=== PATIENT | female | born 1960 | race Caucasian/White ===

== ENCOUNTER → 2016-12-11 | Outpatient (REF) | payer BC ==
[2016-12-11 12:15] LABS: ALBUMIN 3.8 GM/DL (3.2-5.2); ALBUMIN/GLOBULIN RATIO 1.12 (1.00-1.93); ALKALINE PHOSPHATASE 96 U/L (45-117); ALT/SGPT 30 U/L (12-78); ANION GAP 9 MEQ/L (8-16); AST/SGOT 17 U/L (15-37); BILIRUBIN,TOTAL 0.5 MG/DL (0.2-1.0); BLOOD UREA NITROGEN 13 MG/DL (7-18); CALCIUM LEVEL 9.4 MG/DL (8.5-10.1); CARBON DIOXIDE LEVEL 29 MEQ/L (21-32); CHLORIDE LEVEL 105 MEQ/L (98-107); CREATININE FOR GFR 0.87 MG/DL (0.55-1.02); GLOMERULAR FILTRATION RATE > 60.0 (>51); GLUCOSE, FASTING 131 MG/DL (70-105); POTASSIUM SERUM 4.5 MEQ/L (3.5-5.1); SODIUM LEVEL 143 MEQ/L (136-145); TOTAL PROTEIN 7.2 GM/DL (6.4-8.2)
== END ==
LOC: M SFHCPLAZ 09:58
PROVIDERS: ATTEND Nurse Practitioner Family
DX: E11.9 Type 2 diabetes mellitus without complications (principal)

== ENCOUNTER → 2017-04-16 | Outpatient (REF) | payer BC ==
[2017-04-16 13:40] LABS: ANION GAP 6 MEQ/L (8-16); BLOOD UREA NITROGEN 17 MG/DL (7-18); CALCIUM LEVEL 9.2 MG/DL (8.5-10.1); CARBON DIOXIDE LEVEL 27 MEQ/L (21-32); CHLORIDE LEVEL 107 MEQ/L (98-107); CREATININE FOR GFR 0.78 MG/DL (0.55-1.02); GLOMERULAR FILTRATION RATE > 60.0 (>51); GLUCOSE, FASTING 110 MG/DL (70-105); POTASSIUM SERUM 4.4 MEQ/L (3.5-5.1); SODIUM LEVEL 140 MEQ/L (136-145)
== END ==
LOC: M SFHCPLAZ 11:15
PROVIDERS: ATTEND Nurse Practitioner Family
DX: E78.5 Hyperlipidemia, unspecified (principal)

== ENCOUNTER → 2017-05-14 | Outpatient (CLI) | payer BC ==
--- NOTE | 2017-05-14 17:21 | REPMRS ---
Patient History The patient states she has not had a clinical breast exam in over a year. Patient is postmenopausal, has history of endometrial cancer at age 51, and is nulliparous. No known family history of cancer. Benign stereotactic core biopsy of the left breast, June 07, 2011. Digital Woman Screen Mammo: May 14, 2017 - Exam #: [id number] Bilateral CC and MLO view(s) were taken. Technologist: Anuradha Gamboa, Technologist Prior study comparison: April 06, 2016, digital woman screen mammo performed at [facility]. March 08, 2015, digital woman screen mammo performed at [facility]. FINDINGS: There are scattered fibroglandular densities. There has been no change in the appearance of the mammogram from the prior studies. There is a mild amount of residual fibroglandular tissue which is fairly symmetric. There is no interval development of dominant mass, architectural distortion, or clustered microcalcification suggestive of malignancy. ASSESSMENT: BI-RADS/ACR category 1 mammogram. Negative. Recommendation Routine screening mammogram in 1 year (for women over age 40). This mammogram was interpreted with the aid of an FDA-approved computer-aided dectection system. Electronically Signed By: Jered Almanzar MD 05/14/17 1432
== END ==
LOC: M WHC 12:41
PROVIDERS: ATTEND Nurse Practitioner Family
DX: Z12.31 Encounter for screening mammogram for malignant neoplasm of breast (principal); Z78.0 Asymptomatic menopausal state; Z85.9 Personal history of malignant neoplasm, unspecified

== ENCOUNTER → 2017-08-08 | Outpatient (REF) | payer BC ==
[2017-08-08 15:06] LABS: ALBUMIN 3.8 GM/DL (3.2-5.2); ALBUMIN/GLOBULIN RATIO 1.03 (1.00-1.93); ALKALINE PHOSPHATASE 113 U/L (45-117); ALT/SGPT 33 U/L (12-78); ANION GAP 10 MEQ/L (8-16); AST/SGOT 19 U/L (15-37); BILIRUBIN,TOTAL 0.3 MG/DL (0.2-1.0); BLOOD UREA NITROGEN 14 MG/DL (7-18); CALCIUM LEVEL 9.5 MG/DL (8.5-10.1); CARBON DIOXIDE LEVEL 26 MEQ/L (21-32); CHLORIDE LEVEL 104 MEQ/L (98-107); CHOLESTEROL LEVEL 171 MG/DL (<200); CREATININE FOR GFR 0.86 MG/DL (0.55-1.02); GLOMERULAR FILTRATION RATE > 60.0 (>51); GLUCOSE, FASTING 119 MG/DL (70-105); POTASSIUM SERUM 4.4 MEQ/L (3.5-5.1); SODIUM LEVEL 140 MEQ/L (136-145); TOTAL PROTEIN 7.5 GM/DL (6.4-8.2); TRIGLYCERIDES LEVEL 133 MG/DL (<150)
== END ==
LOC: M SFHCPLAZ 09:58
PROVIDERS: ATTEND Nurse Practitioner Family
DX: E11.9 Type 2 diabetes mellitus without complications (principal); E78.5 Hyperlipidemia, unspecified

== ENCOUNTER → 2017-12-12 | Outpatient (REF) | payer BC ==
[2017-12-12 12:47] LABS: ALBUMIN 3.7 GM/DL (3.2-5.2); ALBUMIN/GLOBULIN RATIO 1.03 (1.00-1.93); ALKALINE PHOSPHATASE 99 U/L (45-117); ALT/SGPT 29 U/L (12-78); ANION GAP 7 MEQ/L (8-16); AST/SGOT 15 U/L (7-37); BILIRUBIN,TOTAL 0.3 MG/DL (0.2-1.0); BLOOD UREA NITROGEN 15 MG/DL (7-18); CALCIUM LEVEL 9.5 MG/DL (8.5-10.1); CARBON DIOXIDE LEVEL 29 MEQ/L (21-32); CHLORIDE LEVEL 108 MEQ/L (98-107); CREATININE FOR GFR 0.72 MG/DL (0.55-1.02); GLOMERULAR FILTRATION RATE > 60.0 (>51); GLUCOSE, FASTING 132 MG/DL (70-105); POTASSIUM SERUM 4.2 MEQ/L (3.5-5.1); SODIUM LEVEL 144 MEQ/L (136-145); TOTAL PROTEIN 7.3 GM/DL (6.4-8.2)
[2017-12-12 14:55] LABS: ESTIMATED AVERAGE GLUCOSE 166 MG/DL (60-110); HEMOGLOBIN A1c 7.4 %
== END ==
LOC: M SFHCPLAZ 10:33
DX: E11.9 Type 2 diabetes mellitus without complications (principal)
CPT/HCPCS: 80053

== ENCOUNTER → 2018-02-07 | Outpatient (REF) | payer BC | LOC: M LAB REF 11:45 | DX: D18.00 Hemangioma unspecified site (principal) | CPT/HCPCS: 88305 ==

== ENCOUNTER → 2018-03-07 | Outpatient (REF) | payer BC ==
[2018-03-07 12:29] LABS: ALBUMIN 3.6 GM/DL (3.2-5.2); ALBUMIN/GLOBULIN RATIO 0.95 (1.00-1.93); ALKALINE PHOSPHATASE 108 U/L (45-117); ALT/SGPT 32 U/L (12-78); ANION GAP 8 MEQ/L (8-16); AST/SGOT 19 U/L (7-37); BILIRUBIN,TOTAL 0.4 MG/DL (0.2-1.0); BLOOD UREA NITROGEN 13 MG/DL (7-18); CALCIUM LEVEL 9.4 MG/DL (8.5-10.1); CARBON DIOXIDE LEVEL 26 MEQ/L (21-32); CHLORIDE LEVEL 106 MEQ/L (98-107); CREATININE FOR GFR 0.79 MG/DL (0.55-1.30); GLOMERULAR FILTRATION RATE > 60.0 (>51); GLUCOSE, FASTING 134 MG/DL (70-100); POTASSIUM SERUM 4.1 MEQ/L (3.5-5.1); SODIUM LEVEL 140 MEQ/L (136-145); TOTAL PROTEIN 7.4 GM/DL (6.4-8.2)
[2018-03-07 12:44] LABS: CREATININE, URINE 83.3 MG/DL; MALB URINE SIEMENS 7.4 MG/L; MAU/CREAT RATIO 8.8 MCG/MG (0.0-30.0)
[2018-03-07 12:48] LABS: ESTIMATED AVERAGE GLUCOSE 180 MG/DL (60-110); HEMOGLOBIN A1c 7.9 %
== END ==
LOC: M SFHCPLAZ 09:44
DX: E11.9 Type 2 diabetes mellitus without complications (principal)

== ENCOUNTER → 2018-06-19 | Outpatient (REF) | payer BC ==
[2018-06-19 16:06] LABS: ESTIMATED AVERAGE GLUCOSE 180 MG/DL (60-110); HEMOGLOBIN A1c 7.9 %
[2018-06-19 16:19] LABS: ALBUMIN 3.8 GM/DL (3.2-5.2); ALBUMIN/GLOBULIN RATIO 1.03 (1.00-1.93); ALKALINE PHOSPHATASE 108 U/L (45-117); ALT/SGPT 29 U/L (12-78); ANION GAP 8 MEQ/L (8-16); AST/SGOT 13 U/L (7-37); BILIRUBIN,TOTAL 0.4 MG/DL (0.2-1.0); BLOOD UREA NITROGEN 14 MG/DL (7-18); CALCIUM LEVEL 9.4 MG/DL (8.5-10.1); CARBON DIOXIDE LEVEL 27 MEQ/L (21-32); CHLORIDE LEVEL 108 MEQ/L (98-107); CREATININE FOR GFR 0.84 MG/DL (0.55-1.30); GLOMERULAR FILTRATION RATE > 60.0 (>51); GLUCOSE, FASTING 93 MG/DL (70-100); POTASSIUM SERUM 4.4 MEQ/L (3.5-5.1); SODIUM LEVEL 143 MEQ/L (136-145); TOTAL PROTEIN 7.5 GM/DL (6.4-8.2)
== END ==
LOC: M SFHCPLAZ 14:20
DX: E11.9 Type 2 diabetes mellitus without complications (principal); E78.5 Hyperlipidemia, unspecified

== ENCOUNTER → 2018-07-04 | Outpatient (CLI) | payer BC | LOC: M WHC 11:45 | DX: Z12.31 Encounter for screening mammogram for malignant neoplasm of breast (principal) | CPT/HCPCS: 77067 ==

== ENCOUNTER → 2018-08-15 | Outpatient (REF) | payer BC | LOC: M SFHCPLAZ 15:05 | DX: E11.9 Type 2 diabetes mellitus without complications (principal); E78.5 Hyperlipidemia, unspecified; I10 Essential (primary) hypertension ==

== ENCOUNTER → 2018-10-02 | Outpatient (REF) | payer BC ==
[2018-10-02 12:30] LABS: ALBUMIN 3.5 GM/DL (3.2-5.2); ALBUMIN/GLOBULIN RATIO 0.95 (1.00-1.93); ALKALINE PHOSPHATASE 110 U/L (45-117); ALT/SGPT 45 U/L (12-78); ANION GAP 10 MEQ/L (8-16); AST/SGOT 22 U/L (7-37); BILIRUBIN,TOTAL 0.3 MG/DL (0.2-1.0); BLOOD UREA NITROGEN 11 MG/DL (7-18); CARBON DIOXIDE LEVEL 24 MEQ/L (21-32); CHLORIDE LEVEL 108 MEQ/L (98-107); CHOLESTEROL LEVEL 170 MG/DL (<200); CREATININE FOR GFR 0.87 MG/DL (0.55-1.30); FREE T4 1.15 NG/DL (0.76-1.46); GLOMERULAR FILTRATION RATE > 60.0 (>45); GLUCOSE, FASTING 143 MG/DL (70-100); HDL CHOLESTEROL 50 MG/DL (>40); LDL CHOLESTEROL 96 MG/DL (<100); NON-HDL-C 120 MG/DL; POTASSIUM SERUM 4.5 MEQ/L (3.5-5.1); SODIUM LEVEL 142 MEQ/L (136-145); TOTAL PROTEIN 7.2 GM/DL (6.4-8.2); TRIGLYCERIDES LEVEL 121 MG/DL (<150)
[2018-10-02 12:48] LABS: ESTIMATED AVERAGE GLUCOSE 174 MG/DL (60-110); HEMOGLOBIN A1c 7.7 %
== END ==
LOC: M SFHCPLAZ 10:04
DX: E11.9 Type 2 diabetes mellitus without complications (principal)
CPT/HCPCS: 84443

== ENCOUNTER 2018-11-27 15:22 | Inpatient (IN) | payer BC ==
[~2018-11-27] VITALS: Ht 172.7 cm; Wt 121.5 kg
[2018-11-27] MEDS ORDERED: OMEP40CA2 PO (15:43)
[2018-11-27] MEDS ORDERED: SIMV10TA2 PO (15:43)
[2018-11-27] MEDS ORDERED: GLIP10TA18 PO (15:43)
[2018-11-27] MEDS ORDERED: LISI-538 PO (15:43)
[2018-11-27] MEDS ORDERED: METF10004 PO (15:43)
[2018-11-27] MEDS ORDERED: JARD1TAB3 PO (15:43)
[2018-11-27] MEDS ORDERED: JANU100T PO (15:43)
[2018-11-27] MEDS ORDERED: TRUL0.5I SQ (15:43)
[2018-11-27] MEDS ORDERED: CEFU50TA PO (15:43)
[2018-11-27] MEDS ORDERED: IPRATROPIUM 0.5MG/ALBUTEROL 2.5MG INH SOL UD 3ML (DUONEB)(J7620) NEB ONE (15:45)
[2018-11-27 16:01] LABS: BASO % 0.3 % (0.0-1.0); EOS % 0.7 % (0.0-3.0); HEMATOCRIT 39.2 % (36.0-47.0); HEMOGLOBIN 11.8 g/dl (12.0-15.5); LYMPH # 0.5 10^3/uL (1.5-4.5); LYMPH % 8.5 % (24.0-44.0); MEAN CORPUSCULAR HEMOGLOBIN 23.6 pg (27.0-33.0); MEAN CORPUSCULAR HGB CONC 30.1 g/dl (32.0-36.5); MEAN CORPUSCULAR VOLUME 78.6 fl (80.0-96.0); MONO # 0.4 10^3/uL (0.0-0.8); MONO % 6.2 % (0.0-5.0); NEUTROPHILS % 82.2 % (36.0-66.0); PLATELET COUNT, AUTOMATED 357 10^3/uL (150-450); RED BLOOD COUNT 4.99 10^6/uL (4.00-5.40); WHITE BLOOD COUNT 6.1 10^3/uL (4.0-10.0)
[2018-11-27 16:15] LABS: ABG BASE EXCESS 3.6 (-2.0-2.0); ABG HCO3 27.8 MEQ/L (22.0-26.0); ABG O2 SATURATION 95.1 % (95.0-99.0); ABG PARTIAL PRESSURE CO2 40.4 mmHg (35.0-45.0); ABG PARTIAL PRESSURE O2 76.9 mmHg (75.0-100.0); ABG STANDARD HCO3 27.6 MEQ/L (22.0-26.0); ABG pH (ARTERIAL) 7.455 UNITS (7.350-7.450)
--- NOTE | 2018-11-27 16:20 | REP ---
Portable chest x-ray: Sitting AP view: History: Dyspnea and cough. Comparison study: September 19, 2012. Findings: The patient is rotated somewhat to the left for the current exposure. EKG monitoring electrodes overlie the chest. There are appears to be blunting of the lateral pleural angles on both sides. The heart is slightly prominent. Findings may reflect small bilateral pleural effusions. No definite infiltrate. Impression: Possible small bilateral effusions. Prominent heart. The patient is rotated somewhat to the left. No definite infiltrate. Electronically Signed by Venkat Art MD 11/27/2018 06:20 P
[2018-11-27 16:24] LABS: INR 1.15; PROTHROMBIN TIME 14.9 SECONDS (12.1-14.4)
[2018-11-27 16:34] LABS: ALBUMIN 2.7 GM/DL (3.2-5.2); ALT/SGPT 86 U/L (12-78); BILIRUBIN,DIRECT < 0.1 MG/DL (0.0-0.2); BILIRUBIN,TOTAL 0.4 MG/DL (0.2-1.0); BLOOD UREA NITROGEN 14 MG/DL (7-18); CALCIUM LEVEL 8.9 MG/DL (8.8-10.2); CARBON DIOXIDE LEVEL 24 MEQ/L (21-32); CHLORIDE LEVEL 105 MEQ/L (98-107); CPK CREATINE PHOSPHOKINASE 467 U/L (26-192); CREATININE FOR GFR 0.78 MG/DL (0.55-1.30); GLOMERULAR FILTRATION RATE > 60.0 (>45); GLUCOSE, FASTING 164 MG/DL (70-100); MB/CK RELATIVE INDEX 0.56 (< OR =4); NT-PRO BNP 415 PG/ML (<125); POTASSIUM SERUM 4.7 MEQ/L (3.5-5.1); SODIUM LEVEL 139 MEQ/L (136-145); THYROID STIMULATING HORMONE 0.506 uIU/ML (0.358-3.740); TOTAL PROTEIN 7.3 GM/DL (6.4-8.2); TROPONIN I < 0.02 NG/ML (< 0.10)
[2018-11-27] MEDS ORDERED: ISOVUE-370 76% 100ML VIAL (Q9967) As Ordered ONE (16:46)
[2018-11-27] MEDS ORDERED: ASPI81TA85 PO (16:54)
[2018-11-27] MEDS ORDERED: WAL-100S PO (16:54)
[2018-11-27] MEDS ORDERED: VENTAER INH (16:54)
[2018-11-27] MEDS ORDERED: VITMTA PO (16:54)
[2018-11-27] MEDS ORDERED: MOXIFLOXACIN HCL 400 MG in APPROPRIATE DILUENT 1 EA IV ONE (17:15)
--- NOTE | 2018-11-27 17:45 | REP ---
CT pulmonary angiogram: With IV contrast. History: Dyspnea and cough. Shortness of breath. Comparison studies: Comparison is made with today's chest x-ray. Contrast dose: 75 cc's of Isovue [address] technique: Helical scanning is acquired and overlapping 1.5 mm and contiguous 3 mm axial images are reformatted. In addition, maximum intensity projection and multiplanar re-formation images are generated in sagittal and coronal imaging projections. CT pulmonary angiographic findings: There is good opacification of the pulmonary arterial tree. Axial and maximum intensity projection images show no evidence of vessel cutoff or filling defect to suggest pulmonary embolism. Thoracic aorta shows no evidence of aneurysm or dissection. There is coarse linear plate-like atelectasis in the left lower lobe. In addition, there is complete essentially lobar pattern consolidation in the right lower lobe. There is a little area of sparing laterally. Air bronchograms are seen. There is mild reactive mediastinal lymphadenopathy. A precarinal lymph node measures 14 mm. There is minimal pleural fluid posteriorly above the level of the infiltrate. No adrenal lesion is seen. The visualized upper abdominal structures are unremarkable. No bony destructive lesion is seen. Impression: 1. Extensive, essentially lobar pattern, consolidation in the right lower lobe consistent with pneumonia. There is patchy discoid atelectasis in the left lower lobe .2. No CT evidence of pulmonary embolus. 3. Minimal pleural fluid above the infiltrate on the right. 4. Mild reactive mediastinal lymphadenopathy. Electronically Signed by Venkat Art MD 11/27/2018 06:26 P
[2018-11-27] MEDS ORDERED: ALBUTEROL 90 MCG/ACT 8GM HFA INHALER INH PRN (19:45)
--- NOTE | 2018-11-27 20:42 | HPE ---
DATE OF ADMISSION: 11/27/2018 This is a 58-year-old female with a past medical history of hypertension, diabetes, hyperlipidemia who presents to the emergency room with cough productive yellow sputum which has been going on for the past week and a half. She did go to urgent care about 4 days ago and received Ceftin and she took it as prescribed but her status did not improve so she came to the emergency room for evaluation. In the emergency room she was found to hypoxic on room air with a pulse ox of 73. In the emergency room she was started on 50% venturi mask and now she is sating 93%. She was also given moxifloxacin by the ER attending. CT angio shows extensive essential lobar pattern with consolidation of the right lower lobe which is consistent with pneumonia. Patient is a lifetime nonsmoker and has no history of pulmonary disease. She will be admitted for further management. PAST MEDICAL HISTORY: Hypertension, diabetes, hyperlipidemia. ALLERGIES: She has no known drug allergies. FAMILY HISTORY: Not contributory. SOCIAL HISTORY: Patient does not smoke or drink alcohol or use drugs. MEDICATIONS AT HOME: Ventolin 2 puffs inhaler every 4 hours as needed, aspirin 81 mg orally daily, Ceftin 500 mg orally twice daily, Jardiance 25 mg orally daily, glipizide 10 mg orally daily, lisinopril 20 mg orally daily, metformin 1000 mg orally twice daily, Multivitamin 1 tablet orally daily, omeprazole 40 mg orally daily, simvastatin 10 mg orally at bedtime, Trulicity 1.5 mg subcu once a week and wal tussin 1 dose by mouth as needed. REVIEW OF SYSTEMS: Negative for all 10 major systems except what was mentioned in the HPI. VITALS: Blood pressure 121/59, heart rate 79 and regular, respiratory rate 18, temperature 99.9, Oxygen saturation 93% on 50% venti mask. Head is atraumatic normocephalic. Neck suppler with no JVD. Lungs have scattered rhonchi. S1, S2 audible. No murmurs appreciated. Abdomen was soft and positive bowel sounds. There is no pedal edema. Skin was intact. Neurologic examination, patient awake and oriented times three. LABS: WBC 6.1, hemoglobin 11.8, hematocrit 39.2, platelets 375,000 sodium 139, potassium 4.7, chloride 105, CO2 24, BUN 14, creatinine 0.78, glucose 164, troponin is less than 0.02, BNP 415. IMPRESSION: 1. Acute hypoxemic respiratory failure. 2. Right lower lobe community acquired pneumonia. PLAN: Patient to be admitted to PCU. We will continue 50% venturi mask for now and we will try to titrate to maintain oxygen sats above 90. I started the patient on IV Rocephin and Zithromax and will continue her preadmission medications. We will send sputum culture.
[2018-11-27] MEDS ORDERED: cefTRIAXone SOD 1 GM in D5W MINI-BAG PLUS 50 ML IV SCH (21:00)
[2018-11-27] MEDS: SIMVASTATIN 10 MG TAB PO SCH (21:33)
[2018-11-27] MEDS: AZITHROMYCIN INJ 500 MG, VIAL MATE ADAPTER 1 EACH in D5W 250 ML IV SCH (21:58)
[2018-11-28 05:58] LABS: BASO % 0.3 % (0.0-1.0); HEMATOCRIT 34.8 % (36.0-47.0); HEMOGLOBIN 10.3 g/dl (12.0-15.5); LYMPH # 0.4 10^3/uL (1.5-4.5); LYMPH % 6.5 % (24.0-44.0); MEAN CORPUSCULAR HGB CONC 29.6 g/dl (32.0-36.5); MEAN CORPUSCULAR VOLUME 77.9 fl (80.0-96.0); MONO # 0.4 10^3/uL (0.0-0.8); MONO % 6.2 % (0.0-5.0); NEUTROPHILS # 5.6 10^3/uL (1.8-7.7); NEUTROPHILS % 84.4 % (36.0-66.0); PLATELET COUNT, AUTOMATED 349 10^3/uL (150-450); RED BLOOD COUNT 4.47 10^6/uL (4.00-5.40); WHITE BLOOD COUNT 6.7 10^3/uL (4.0-10.0)
[2018-11-28 06:25] LABS: BLOOD UREA NITROGEN 20 MG/DL (7-18); CALCIUM LEVEL 8.9 MG/DL (8.8-10.2); CARBON DIOXIDE LEVEL 26 MEQ/L (21-32); CHLORIDE LEVEL 107 MEQ/L (98-107); CREATININE FOR GFR 0.72 MG/DL (0.55-1.30); GLOMERULAR FILTRATION RATE > 60.0 (>45); GLUCOSE, FASTING 151 MG/DL (70-100); POTASSIUM SERUM 4.1 MEQ/L (3.5-5.1); SODIUM LEVEL 143 MEQ/L (136-145)
[2018-11-28] MEDS ORDERED: glipiZIDE XL 5 MG TABCR PO SCH (07:30)
[2018-11-28] MEDS ORDERED: metFORMIN (GLUCOPHAGE) 1000 MG TABLET PO SCH (08:00)
[2018-11-28] MEDS: OMEPRAZOLE 20 MG CAP PO SCH (09:12)
[2018-11-28] MEDS: ASPIRIN 81 MG ENTERIC TAB PO SCH (09:12)
[2018-11-28] MEDS: MULTIVITAMINS/MINERALS THERAP 1 TAB PO SCH (09:12)
[2018-11-28] MEDS ORDERED: DEXTROSE 50% 50 ML SYRINGE IV PRN (10:30)
[2018-11-28] MEDS ORDERED: ALBUTEROL SULFATE 2.5 MG/0.5 ML INH NEB SOLN NEB PRN (10:30)
[2018-11-28] MEDS ORDERED: GLUCAGON FOR INJ 1 MG VIAL (J1610) SC PRN (10:30)
[2018-11-28] MEDS ORDERED: GLUCOSE 4 GM CHEW TABLET PO PRN (10:30)
[2018-11-28] MEDS: LISINOPRIL 20 MG TAB PO SCH (10:30)
--- NOTE | 2018-11-28 11:11 | ECGEPIP ---
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
[2018-11-28 11:33] LABS: PERCENT SATURATION 18.4 % (13.2-45.0)
[2018-11-28 11:54] LABS: FOLATE 22.6 NG/ML (>5.4)
[2018-11-28] MEDS: methylPREDNISolone INJ 40 MG/1 ML VIAL (J2920) IV SCH (11:56)
[2018-11-28] MEDS: ALBUTEROL SULFATE 2.5 MG/0.5 ML INH NEB SOLN NEB SCH ×3 (11:56→19:42)
[2018-11-28 13:12] VITALS: BP 156/76
[2018-11-28] MEDS: HumaLOG INSULIN (NovoLOG) PER UNIT SC SCH ×3 (13:30→20:35)
[2018-11-28 14:27] VITALS: O2SAT 92
--- NOTE | 2018-11-28 14:32 | IPNPDOC ---
Subjective Date Seen The patient was seen on 11/28/18. Subjective Chief Complaint/HPI Patient seen and examined at bedside. Is out of breath but still speaking complete sentences. Denies fevers, chills, chest pain. Admits to SOB, cough, and sputum production. States she doesn't feel too good. Has eaten breakfast this AM. Feels very fatigued. General: Reports: Normal Appetite Constitutional: Denies: Chills, Fever ENT: Denies: Head Aches Skin: Denies: Rash Pulmonary: Reports: Dyspnea, Cough Cardiovascular: Denies: Chest Pain Gastrointestinal: Denies: Nausea, Vomiting, Abdominal Pain, Diarrhea, Constipation Genitourinary: Denies: Dysuria, Frequency Hematologic: Denies: Bruising Endocrine: Denies: Heat Intolerance, Cold Intolerance Musculoskeletal: Denies: Joint Pain, Muscle Pain Neurological: Denies: Weakness, Confusion Psych: Reports: Mood Normal (for her condition) Objective Physical Examination General Exam: Positive: Alert, Cooperative, Moderate Distress Eye Exam: Positive: Conjunctiva & lids normal; Negative: Sclera icteric ENT Exam: Positive: Atraumatic Neck Exam: Positive: Supple; Negative: Lymphadenopathy Chest Exam: Positive: Rhonchi (scattered in all lung pepper), Diminished (at b ases), Other (Is tachypneic and in obvious respiratory distress); Negative: Clear to auscultation, Wheezing Heart Exam: Positive: Rate Normal, Regular Rhythm, Normal S1, Normal S2 Abdomen Exam: Positive: Normal bowel sounds, Soft, Other (morbidly obese); Negative: Tenderness, Hepatospenomegaly Extremity Exam: Negative: Clubbing, Cyanosis, Edema Skin Exam: Positive: Nl turgor and temperature; Negative: Rash Neuro Exam: Positive: Normal Speech Psych Exam: Positive: Mental status NL, Mood NL, Oriented x 3 Assessment /Plan Problems (1) Acute respiratory failure with hypoxia Status: Acute Problem Text: 11/28: Satting 92% on 15 L/min Venturi Mask and FiO2 50%. Lowest O2 saturation was 86% on 11/27. Overnight, patient did desat down to 87% on 11/28 early this AM. Patient has hypoxic respiratory failure likely secondary to Mycoplasma Pneumoniae Pneumonia as evidenced by Respiratory Panel results. Will continue current management and try to maintain O2 saturations above 90%. Have also ordered albuterol nebulizer treatments RQ6H and Q2H PRN. (2) Community acquired pneumonia due to Mycoplasma pneumoniae Status: Acute Problem Text: 11/28: Respiratory Panel was (+) for Mycoplasma Pneumoniae Pneu monia. Patient was originally started on ceftriaxone and azithromycin. Have d/ce'd the ceftriaxone and kept azithromycin for atypical organism coverage. Will continue to trend WBC and CBC. WBC astonishingly is WNL at 6.7 today. Continue O2 supplementation and nebulizer treatments. In addition, have added 40 mg IV solumedrol qdaily x 5 days. (3) Microcytic anemia Status: Acute Problem Text: 11/28: Has microcytic anemia on exams with Hgb 10.3 and MCV 77.9. RDW was high at 17.0 (H). Will order iron studies, vitamin B12, and folate to evaluate etiology of anemia. (4) Diabetes mellitus type 2 in obese Status: Chronic Problem Text: 11/28: Patient's last HgbA1C was 7.7 on 10/02/18. Patient was started on her home regimen of metformin 1000 mg BID and glipizide. However, due to patient's risk of going into renal failure during hospitalization with acute infection, will stop metformin for now. In addition, will hold glipizide for now. Will start sliding scale coverage with FS checks at and QHS. Will adjust therapy as necessary. (5) Grade I diastolic dysfunction Status: Chronic Problem Text: 11/28: According to [facility] records on outpatient EMR, patient had Echocardiogram on 08/2018 that showed normal LV internal dimensions and wall thickness, hyperdynamic LV systolic function LVEF 80%, mild dynamic LVOT obstructive gradient, Grade I LV diastolic dysfunction, mild L atrial dilitation, structurally and functioning normal aortic valve, no aortic stenosis, mild dilitation of the aortic root at the level of the sinuses Valsalva, normal diameter of the proximal ascending aorta, no coarctation of the aorta, moderately technically difficult echocardiogram. Will monitor patient clinically for any signs of heart failure. Her BNP was mildly elevated at 415 (H). Troponin I was <0.02. Total CK was 467 (H), CK-MB: 3 (N), CK-MB relative index was 0.56 (N). EKG done in the ED had shown: sinus rhythm, rate of 80, normal axis, QRS duration 90 ms, QTc interval 408 ms, subtle ST elevation infe riorly, lateral T wave inversion, consider ischemia, no priors for comparison. (6) Endometrial carcinoma Status: Chronic Problem Text: 11/28: Dx 2011, Stage 1B, grade 2, follows with Dr. Barrett in [place]. (7) GERD (gastroesophageal reflux disease) Status: Chronic Problem Text: 11/28: Continue omeprazole 40 mg daily. (8) Elevated liver enzymes Status: Acute Problem Text: 11/28: Of note, patient's AST was 62 (H), ALT was 86 (H), alk phos 189 (H). Liver enzymes were previously normal. Will continue to trend CMP and see if needs further evaluation. (9) Cervical spondylosis without myelopathy Status: Chronic Problem Text: 11/28: Monitor for now. No pain medication ordered. Consider K- pad if needed. LFTs were elevated on labs today. Thus, I do not wish to give her tylenol nor NSAIDs at this time. (10) Hyperlipidemia Status: Chronic Problem Text: 11/28: Continue aspirin 81 mg daily and simvastatin 10 mg QHS. Plan/VTE VTE Prophylaxis Ordered?: Yes (Lovenox 40 mg SC daily) Disposition Pending clinical improvement. VS, I&O, 24H, Fishbone Vital Signs/I&O Vital Signs Date Time Temp Pulse Resp B/P (MAP) Pulse Ox O2 Delivery O2 Flow Rate FiO2 11/28/18 11:30 73 123/55 (77) 91 11/28/18 09:30 22 Venturi Mask 15.0 11/28/18 06:46 50 11/27/18 17:22 99.9 I&O- Last 24 Hours up to 6 AM 11/28/18 06:00 Intake Total 50 ml Balance 50 ml Laboratory Data 24H LABS Laboratory Tests 2 11/27/18 15:47: Immature Granulocyte % (Auto) 2.1, White Blood Count 6.1, Red Blood Count 4.99, Hemoglobin 11.8L, Hematocrit 39.2, Mean Corpuscular Volume 78.6L, Mean Corpuscular Hemoglobin 23.6L, Mean Corpuscular Hemoglobin Concent 30.1L, Red Cell Distribution Width 17.2H, Platelet Count 357, Neutrophils (%) (Auto) 82.2H, Lymphocytes (%) (Auto) 8.5L, Monocytes (%) (Auto) 6.2H, Eosinophils (%) (Auto) 0.7, Basophils (%) (Auto) 0.3, Neutrophils # (Auto) 5.0, Lymphocytes # (Auto) 0.5L, Monocytes # (Auto) 0.4, Eosinophils # (Auto) 0.0, Basophils # (Auto) 0.0, Nucleated Red Blood Cells % (auto) 0.3H, Anion Gap 10, Glomerular Filtration Rate > 60.0, Lactic Acid Level 1.9, Calcium Level 8.9, Aspartate Amino Transf (AST/SGOT) 62H, Alanine Aminotransferase (ALT/SGPT) 86H, Alkaline Phosphatase 189H, Total Bilirubin 0.4, Direct Bilirubin < 0.1, Total Creatine Kinase 467H, Creatine Kinase MB 3.0, Creatine Kinase MB Relative Index 0.56, Troponin I < 0.02, GP-Suz-T-Type Natriuretic Peptide 415H, Total Protein 7.3, Albumin 2.7L, Albumin/Globulin Ratio 0.59L, Thyroid Stimulating Hormone (TSH) 0.506 11/27/18 15:59: Prothrombin Time 14.9H, Prothromb Time International Ratio 1.15 11/27/18 16:01: Blood Gas Bicarbonate Standard 27.6H, Arterial Blood pH 7.455H, Arterial Blood Partial Pressure CO2 40.4, Arterial Blood Partial Pressure O2 76.9, Arterial Blood Total CO2 29.0, Arterial Blood HCO3 27.8H, Arterial Blood Base Excess 3.6H, Arterial Blood Oxygen Saturation 95.1 11/28/18 03:49: Bedside Glucose (Misc Panel) 154H 11/28/18 05:39: Immature Granulocyte % (Auto) 2.6, White Blood Count 6.7, Red Blood Count 4.47, Hemoglobin 10.3L, Hematocrit 34.8L, Mean Corpuscular Volume 77.9L, Mean Corpuscular Hemoglobin 23.0L, Mean Corpuscular Hemoglobin Concent 29.6L, Red Cell Distribution Width 17.0H, Platelet Count 349, Neutrophils (%) (Auto) 84.4H, Lymphocytes (%) (Auto) 6.5L, Monocytes (%) (Auto) 6.2H, Eosinophils (%) (Auto) 0.0, Basophils (%) (Auto) 0.3, Neutrophils # (Auto) 5.6, Lymphocytes # (Auto) 0.4L, Monocytes # (Auto) 0.4, Eosinophils # (Auto) 0.0, Basophils # (Auto) 0.0, Nucleated Red Blood Cells % (auto) 0.0, Anion Gap 10, Glomerular Filtration Rate > 60.0, Blood Urea Nitrogen 20H, Creatinine 0.72, Sodium Level 143, Potassium Level 4.1, Chloride Level 107, Carbon Dioxide Level 26, Calcium Level 8.9 11/28/18 07:54: Bedside Glucose (Misc Panel) 135H 11/28/18 10:53: Reticulocyte # (auto) 59.9, Percent Reticulocyte Count 1.3, Reticulocyte Hemoglobin Equivalent 23.2L, Iron Level 45L, Total Iron Binding Capacity 244L, Transferrin % Saturation 18.4, Ferritin 105, Vitamin B12 Level 545, Folate 22.6 11/28/18 11:53: Bedside Glucose (Misc Panel) 169H CBC/BMP Laboratory Tests 11/27/18 15:47 Red Blood Count 4.99, Mean Corpuscular Volume 78.6 L, Mean Corpuscular Hemoglobin 23.6 L, Mean Corpuscular Hemoglobin Concent 30.1 L, Red Cell Distribution Width 17.2 H, Neutrophils (%) (Auto) 82.2 H, Lymphocytes (%) (Auto) 8.5 L, Monocytes (%) (Auto) 6.2 H, Eosinophils (%) (Auto) 0.7, Basophils (%) (Auto) 0.3, Neutrophils # (Auto) 5.0, Lymphocytes # (Auto) 0.5 L, Monocytes # (Auto) 0.4, Eosinophils # (Auto) 0.0, Basophils # (Auto) 0.0 11/28/18 05:39 Red Blood Count 4.47, Mean Corpuscular Volume 77.9 L, Mean Corpuscular Hemoglobin 23.0 L, Mean Corpuscular Hemoglobin Concent 29.6 L, Red Cell Distribution Width 17.0 H, Neutrophils (%) (Auto) 84.4 H, Lymphocytes (%) (Auto) 6.5 L, Monocytes (%) (Auto) 6.2 H, Eosinophils (%) (Auto) 0.0, Basophils (%) (Auto) 0.3, Neutrophils # (Auto) 5.6, Lymphocytes # (Auto) 0.4 L, Monocytes # (Auto) 0.4, Eosinophils # (Auto) 0.0, Basophils # (Auto) 0.0, Calcium Level 8.9 Microbiology Microbiology 11/27/18 Blood Culture, Received Pending 11/27/18 Blood Culture, Received Pending 11/27/18 Respiratory Virus Panel (PCR) ([facility]) - Final, Complete Mycoplasma Pneumoniae GME ATTESTATION GME ATTESTATION My faculty preceptor for this patient encounter was Dr. Chris Lozano, and was physically present during the encounter and was fully available. All aspects of the patient interview, examination, medical decision making process, and medical care plan development were reviewed and approved by the faculty preceptor. The faculty preceptor is aware and concurs with the plan as stated in the body of this note and will attest to such by his/her cosignature. ROYAL FRYE DO Nov 28, 2018 14:32
[2018-11-28] MEDS: ENOXAPARIN 40 MG/0.4 ML SYRINGE (J1650) SC SCH (18:52)
[2018-11-28] MEDS: SIMVASTATIN 10 MG TAB PO SCH (21:12)
[2018-11-28] MEDS: AZITHROMYCIN INJ 500 MG, VIAL MATE ADAPTER 1 EACH in D5W 250 ML IV SCH (21:13)
[2018-11-28 22:00] VITALS: BP 128/59
[2018-11-29] MEDS: ALBUTEROL SULFATE 2.5 MG/0.5 ML INH NEB SOLN NEB SCH ×4 (02:00→19:43)
[2018-11-29 05:58] LABS: BASO % 0.1 % (0.0-1.0); EOS % 0.1 % (0.0-3.0); HEMATOCRIT 33.2 % (36.0-47.0); LYMPH # 0.6 10^3/uL (1.5-4.5); MEAN CORPUSCULAR HEMOGLOBIN 23.2 pg (27.0-33.0); MEAN CORPUSCULAR HGB CONC 30.1 g/dl (32.0-36.5); MONO # 0.4 10^3/uL (0.0-0.8); MONO % 6.3 % (0.0-5.0); NEUTROPHILS # 5.8 10^3/uL (1.8-7.7); NEUTROPHILS % 82.9 % (36.0-66.0); PLATELET COUNT, AUTOMATED 391 10^3/uL (150-450); RED BLOOD COUNT 4.31 10^6/uL (4.00-5.40)
[2018-11-29 06:00] VITALS: BP 137/73
[2018-11-29 06:25] LABS: ALBUMIN 2.3 GM/DL (3.2-5.2); ALT/SGPT 66 U/L (12-78); BILIRUBIN,TOTAL 0.3 MG/DL (0.2-1.0); BLOOD UREA NITROGEN 24 MG/DL (7-18); CALCIUM LEVEL 9.1 MG/DL (8.8-10.2); CARBON DIOXIDE LEVEL 27 MEQ/L (21-32); CHLORIDE LEVEL 107 MEQ/L (98-107); CREATININE FOR GFR 0.68 MG/DL (0.55-1.30); GLOMERULAR FILTRATION RATE > 60.0 (>45); GLUCOSE, FASTING 175 MG/DL (70-100); SODIUM LEVEL 141 MEQ/L (136-145); TOTAL PROTEIN 6.9 GM/DL (6.4-8.2)
[2018-11-29] MEDS: methylPREDNISolone INJ 40 MG/1 ML VIAL (J2920) IV SCH (08:53)
[2018-11-29] MEDS: MULTIVITAMINS/MINERALS THERAP 1 TAB PO SCH (08:54)
[2018-11-29] MEDS: LISINOPRIL 20 MG TAB PO SCH (08:54)
[2018-11-29] MEDS: OMEPRAZOLE 20 MG CAP PO SCH (08:54)
[2018-11-29] MEDS: ASPIRIN 81 MG ENTERIC TAB PO SCH (08:54)
[2018-11-29] MEDS: HumaLOG INSULIN (NovoLOG) PER UNIT SC SCH ×4 (08:54→20:42)
--- NOTE | 2018-11-29 11:53 | IPNPDOC ---
Subjective Date Seen The patient was seen on 11/29/18. Subjective Chief Complaint/HPI Patient seen and examined at bedside. Denies fevers, chills, chest pain. Admits to cough productive of sputum and SOB same as prior. However, feels a little better than yesterday. Nurse stated that patient desatted down to 88% when walking, but not below that. General: Denies: Normal Appetite (admits to decreased appetite) Constitutional: Reports: Fatigue; Denies: Chills, Fever Eyes: Denies: Vision change ENT: Denies: Head Aches Skin: Denies: Rash Pulmonary: Reports: Dyspnea, Cough Cardiovascular: Denies: Chest Pain Gastrointestinal: Denies: Nausea, Vomiting, Abdominal Pain, Diarrhea, Constipation Genitourinary: Denies: Dysuria Hematologic: Denies: Bruising Endocrine: Denies: Heat Intolerance, Cold Intolerance Musculoskeletal: Denies: Joint Pain, Muscle Pain Neurological: Denies: Numbness, Confusion Psych: Reports: Mood Normal (for condition) Objective Physical Examination General Exam: Positive: Alert, Cooperative, Moderate Distress (with Venturi Mask on), Other (appears very fatigued) Eye Exam: Positive: Conjunctiva & lids normal; Negative: Sclera icteric ENT Exam: Positive: Atraumatic Neck Exam: Positive: Supple; Negative: Lymphadenopathy Chest Exam: Positive: Rhonchi (scattered in all lung pepper), Other (Is tachypneic and in obvious respiratory distress); Negative: Clear to auscultation, Wheezing Heart Exam: Positive: Rate Normal, Regular Rhythm, Normal S1, Normal S2 Abdomen Exam: Positive: Normal bowel sounds, Soft, Other (morbidly obese); Negative: Tenderness, Hepatospenomegaly Extremity Exam: Negative: Clubbing, Cyanosis, Edema Skin Exam: Positive: Nl turgor and temperature; Negative: Rash Neuro Exam: Positive: Normal Speech Psych Exam: Positive: Mental status NL, Mood NL, Oriented x 3 Assessment /Plan Problems (1) Acute respiratory failure with hypoxia Status: Acute Problem Text: 11/29: Satting 95% on 15 L/min Venturi Mask. Not on FiO2. Lowest O2 saturation on 11/28 was: 84% at 7:15 AM and 87% at 2200. Continue to maintain O2 saturations above 90% with O2 therapy. Continue albuterol neb tx. Continue to monitor pulse oximetry for any desaturation events. Treat underlying cause: Mycoplasma Pneumoniae Pneumonia with Azithromycin. 11/28: Satting 92% on 15 L/min Venturi Mask and FiO2 50%. Lowest O2 saturation was 86% on 11/27. Overnight, patient did desat down to 87% on 11/28 early this AM. Patient has hypoxic respiratory failure likely secondary to Mycoplasma Pneumoniae Pneumonia as evidenced by Respiratory Panel results. Will continue current management and try to maintain O2 saturations above 90%. Have also order ed albuterol nebulizer treatments RQ6H and Q2H PRN. (2) Community acquired pneumonia due to Mycoplasma pneumoniae Status: Acute Problem Text: 11/29: Day 2 of azithromycin. Continue IV solumedrol. WBC still WNL at 7 but is climbing up. However, patient is on steroid. Has remained afebrile overnight. 11/28: Respiratory Panel was (+) for Mycoplasma Pneumoniae Pneumonia. Patient was originally started on ceftriaxone and azithromycin. Have d/ce'd the ceftriaxone and kept azithromycin for atypical organism coverage. Will continue to trend WBC and CBC. WBC astonishingly is WNL at 6.7 today. Continue O2 supplementation and nebulizer treatments. In addition, have added 40 mg IV solumedrol qdaily x 5 days. (3) Microcytic anemia Status: Acute Problem Text: 11/29: Hgb was 10 (L), MCV was 77 (L), RDW was 17.2 (H), Retic # 59.9 WNL, Retic Hgb Equivalent 23.2(L), iron 45 (L), TIBC 244 (L), transferrin 202 WNL, transferrin % saturation 18.4 WNL, ferritin 105 WNL. Vitamin B12 545 WNL, and Folate 22.6 WNL. Anemia workup reveals etiology to be likely either: anemia of chronic disease and some additional iron deficiency anemia. If patient's ethnicity is Mediterranean origin, then thalassemia workup could be considered. 11/28: Has microcytic anemia on exams with Hgb 10.3 and MCV 77.9. RDW was high at 17.0 (H). Will order iron studies, vitamin B12, and folate to evaluate etiology of anemia. (4) Diabetes mellitus type 2 in obese Status: Chronic Problem Text: 11/29: Serum glucose was 175 (H) and FS was 238 (H). Patient required 10 units sliding scale coverage yesterday. Will start patient on basal insulin at half that dose: detemir 5 units today. Still on ISS coverage at and Q. 11/28: Patient's last HgbA1C was 7.7 on 10/02/18. Patient was started on her home regimen of metformin 1000 mg BID and glipizide. However, due to patient's risk of going into renal failure during hospitalization with acute infection, will stop metformin for now. In addition, will hold glipizide for now. Will start sliding scale coverage with FS checks at and Q. Will adjust therapy as necessary. (5) Grade I diastolic dysfunction Status: Chronic Problem Text: 11/28: According to [facility] records on outpatient EMR, patient had Echocardiogram on 08/2018 that showed normal LV internal dimensions and wall thickness, hyperdynamic LV systolic function LVEF 80%, mild dynamic LVOT obstructive gradient, Grade I LV diastolic dysfunction, mild L atrial dilitation, structurally and functioning normal aortic valve, no aortic stenosis, mild dilitation of the aortic root at the level of the sinuses Valsalva, normal diameter of the proximal ascending aorta, no coarctation of the aorta, moderately technically difficult echocardiogram. Will monitor patient clinically for any signs of heart failure. Her BNP was mildly elevated at 415 (H). Troponin I was <0.02. Total CK was 467 (H), CK-MB: 3 (N), CK-MB relative index was 0.56 (N). EKG done in the ED had shown: sinus rhythm, rate of 80, normal axis, QRS duration 90 ms, QTc interval 408 ms, subtle ST elevation inferiorly, lateral T wave inversion, consider ischemia, no priors for comp arison. (6) Endometrial carcinoma Status: Chronic Problem Text: 11/28: Dx 2011, Stage 1B, grade 2, follows with Dr. Barrett in [place]. (7) GERD (gastroesophageal reflux disease) Status: Chronic Problem Text: 11/28: Continue omeprazole 40 mg daily. (8) Elevated liver enzymes Status: Acute Problem Text: 11/29: Liver function tests and enzymes are normalizing and going down. AST was 29 WNL, ALT was 66 WNL, and alk phos has gone down to 151 (H) which was previously 189 (H). Will continue to monitor CMP. 11/28: Of note, patient's AST was 62 (H), ALT was 86 (H), alk phos 189 (H). Liver enzymes were previously normal. Will continue to trend CMP and see if needs further evaluation. (9) Cervical spondylosis without myelopathy Status: Chronic Problem Text: 11/28: Monitor for now. No pain medication ordered. Consider K- pad if needed. LFTs were elevated on labs today. Thus, I do not wish to give her tylenol nor NSAIDs at this time. (10) Hyperlipidemia Status: Chronic Problem Text: 11/28: Continue aspirin 81 mg daily and simvastatin 10 mg QHS. Plan/VTE VTE Prophylaxis Ordered?: Yes (Lovenox 40 mg SC daily) VS, I&O, 24H, Fishbone Vital Signs/I&O Vital Signs Date Time Temp Pulse Resp B/P (MAP) Pulse Ox O2 Delivery O2 Flow Rate FiO2 11/29/18 08:54 137/73 11/29/18 06:00 96.1 72 21 95 Venturi Mask 15.0 11/28/18 14:27 50 I&O- Last 24 Hours up to 6 AM 11/29/18 06:00 Intake Total 655 ml Output Total 300 ml Balance 355 ml Laboratory Data 24H LABS Laboratory Tests 2 11/28/18 11:53: Bedside Glucose (Misc Panel) 169H 11/28/18 16:37: Bedside Glucose (Misc Panel) 231H 11/28/18 20:35: Bedside Glucose (Misc Panel) 238H 11/29/18 05:32: Immature Granulocyte % (Auto) 2.6, White Blood Count 7.0, Red Blood Count 4.31, Hemoglobin 10.0L, Hematocrit 33.2L, Mean Corpuscular Volume 77.0L, Mean Corpuscular Hemoglobin 23.2L, Mean Corpuscular Hemoglobin Concent 30.1L, Red Cell Distribution Width 17.2H, Platelet Count 391, Neutrophils (%) (Auto) 82.9H, Lymphocytes (%) (Auto) 8.0L, Monocytes (%) (Auto) 6.3H, Eosinophils (%) (Auto) 0.1, Basophils (%) (Auto) 0.1, Neutrophils # (Auto) 5.8, Lymphocytes # (Auto) 0.6L, Monocytes # (Auto) 0.4, Eosinophils # (Auto) 0.0, Basophils # (Auto) 0.0, Nucleated Red Blood Cells % (auto) 0.0, Anion Gap 7L, Glomerular Filtration Rate > 60.0, Blood Urea Nitrogen 24H, Creatinine 0.68, Sodium Level 141, Potassium Level 4.0, Chloride Level 107, Carbon Dioxide Level 27, Calcium Level 9.1, Aspartate Amino Transf (AST/SGOT) 29, Alanine Aminotransferase (ALT/SGPT) 66, Alkaline Phosphatase 151H, Total Bilirubin 0.3, Total Protein 6.9, Albumin 2.3L, Albumin/Globulin Ratio 0.50L CBC/BMP Laboratory Tests 11/29/18 05:32 Red Blood Count 4.31, Mean Corpuscular Volume 77.0 L, Mean Corpuscular Hemoglobin 23.2 L, Mean Corpuscular Hemoglobin Concent 30.1 L, Red Cell Distribution Width 17.2 H, Neutrophils (%) (Auto) 82.9 H, Lymphocytes (%) (Auto) 8.0 L, Monocytes (%) (Auto) 6.3 H, Eosinophils (%) (Auto) 0.1, Basophils (%) (Auto) 0.1, Neutrophils # (Auto) 5.8, Lymphocytes # (Auto) 0.6 L, Monocytes # (Auto) 0.4, Eosinophils # (Auto) 0.0, Basophils # (Auto) 0.0, Calcium Level 9.1, Aspartate Amino Transf (AST/SGOT) 29, Alanine Aminotransferase (ALT/SGPT) 66, Alkaline Phosphatase 151 H, Total Bilirubin 0.3, Total Protein 6.9, Albumin 2.3 L Microbiology Microbiology 11/27/18 Blood Culture - Preliminary, Resulted No growth after 24 hours . All specim... 11/27/18 Blood Culture - Preliminary, Resulted No growth after 24 hours . All specim... 11/27/18 Respiratory Virus Panel (PCR) ([facility]) - Final, Complete Mycoplasma Pneumoniae GME ATTESTATION GME ATTESTATION My faculty preceptor for this patient encounter was Dr. Chris Lozano, and was physically present during the encounter and was fully available. All aspects of the patient interview, examination, medical decision making process, and medical care plan development were reviewed and approved by the faculty preceptor. The faculty preceptor is aware and concurs with the plan as stated in the body of this note and will attest to such by his/her cosignature. ROYAL FRYE DO Nov 29, 2018 11:53
[2018-11-29 14:00] VITALS: BP 146/68
[2018-11-29] MEDS: ENOXAPARIN 40 MG/0.4 ML SYRINGE (J1650) SC SCH (18:23)
[2018-11-29] MEDS: LEVEMIR (INSULIN DETEMIR) 1 UNITS/0.01ML SC SCH (20:42)
[2018-11-29] MEDS: SIMVASTATIN 10 MG TAB PO SCH (20:42)
[2018-11-29] MEDS: AZITHROMYCIN INJ 500 MG, VIAL MATE ADAPTER 1 EACH in D5W 250 ML IV SCH (21:06)
[2018-11-29 22:00] VITALS: BP 154/71
[2018-11-30] MEDS: ALBUTEROL SULFATE 2.5 MG/0.5 ML INH NEB SOLN NEB SCH ×4 (02:26→19:49)
[2018-11-30 05:59] LABS: HEMATOCRIT 34.2 % (36.0-47.0); HEMOGLOBIN 9.9 g/dl (12.0-15.5); MEAN CORPUSCULAR HEMOGLOBIN 22.7 pg (27.0-33.0); MEAN CORPUSCULAR HGB CONC 28.9 g/dl (32.0-36.5); MEAN CORPUSCULAR VOLUME 78.4 fl (80.0-96.0); PLATELET COUNT, AUTOMATED 390 10^3/uL (150-450); RED BLOOD COUNT 4.36 10^6/uL (4.00-5.40)
[2018-11-30 06:00] VITALS: BP 143/69
[2018-11-30 06:23] LABS: ALBUMIN 2.3 GM/DL (3.2-5.2); ALT/SGPT 61 U/L (12-78); BILIRUBIN,TOTAL 0.3 MG/DL (0.2-1.0); BLOOD UREA NITROGEN 22 MG/DL (7-18); CALCIUM LEVEL 8.9 MG/DL (8.8-10.2); CARBON DIOXIDE LEVEL 28 MEQ/L (21-32); CHLORIDE LEVEL 105 MEQ/L (98-107); CREATININE FOR GFR 0.63 MG/DL (0.55-1.30); GLOMERULAR FILTRATION RATE > 60.0 (>45); GLUCOSE, FASTING 203 MG/DL (70-100); POTASSIUM SERUM 4.1 MEQ/L (3.5-5.1); SODIUM LEVEL 138 MEQ/L (136-145); TOTAL PROTEIN 6.6 GM/DL (6.4-8.2)
[2018-11-30 06:39] LABS: ATYPICAL LYMPH 3 % (0-5); LYMPHOCYTES 11 % (16-52); MONOCYTES 1 % (0-8); MYELOCYTES 1 % (0-0); NEUTROPHILS 83 % (35-75)
[2018-11-30 06:41] LABS: ANISOCYTOSIS 1+; MICROCYTOSIS 1+; PLATELET ESTIMATE NORMAL (NORMAL); POIKILOCYTOSIS 1+
[2018-11-30] MEDS: OMEPRAZOLE 20 MG CAP PO SCH (08:13)
[2018-11-30] MEDS: MULTIVITAMINS/MINERALS THERAP 1 TAB PO SCH (08:13)
[2018-11-30] MEDS: ASPIRIN 81 MG ENTERIC TAB PO SCH (08:13)
[2018-11-30] MEDS: methylPREDNISolone INJ 40 MG/1 ML VIAL (J2920) IV SCH (08:13)
[2018-11-30] MEDS: HumaLOG INSULIN (NovoLOG) PER UNIT SC SCH ×4 (08:13→21:17)
[2018-11-30] MEDS: LISINOPRIL 20 MG TAB PO SCH (08:13)
[2018-11-30] MEDS ORDERED: POLYVINYL ALCOHOL OPHTH SOLN 15 ML(LIQUITEARS) OU PRN (10:15)
--- NOTE | 2018-11-30 11:28 | IPN ---
DATE: 11/30/2018 Ann is here with mycoplasma pneumonia. Starting to improve. She is breathing easier, walking easier in the room. Notices an improvement from yesterday. PHYSICAL EXAMINATION: Afebrile, 143/69, oxygen saturation 94%, still on 15 liter Venturi mask. GENERAL APPEARANCE: Less dyspneic. More talkative. HEENT: Unremarkable. LUNGS: Expiratory wheezes and rhonchi, but improved air movement from yesterday. HEART: Regular rate and rhythm. ABDOMEN: Soft, nontender. No peripheral edema. LABORATORIES: Complete blood count (CBC) shows some mild anemia. Electrolytes unremarkable. IMPRESSION: 1. Community-acquired pneumonia secondary to mycoplasma. Continue azithromycin, intravenous (IV) Solu-Medrol. 2. Anemia. Looks like anemia of chronic disease with some additional iron deficiency. 3. Diabetes. Blood sugars are under good control. She is on some basal insulin in addition to sliding scale. At home, she is on Jardiance, metformin and glipizide and Trulicity. She is on IV steroids because of the severe pneumonia. We recommend a five day course. She has received this and she is on her third day. Expect to resume her previous diabetic regimen upon discharge. Anticipated discharge date is probably 12/03/2018 or 12/04/2018.
[2018-11-30 14:00] VITALS: BP 137/70
[2018-11-30] MEDS: ENOXAPARIN 40 MG/0.4 ML SYRINGE (J1650) SC SCH (18:56)
[2018-11-30] MEDS: SIMVASTATIN 10 MG TAB PO SCH (21:15)
[2018-11-30] MEDS: LEVEMIR (INSULIN DETEMIR) 1 UNITS/0.01ML SC SCH (21:16)
[2018-11-30] MEDS: AZITHROMYCIN INJ 500 MG, VIAL MATE ADAPTER 1 EACH in D5W 250 ML IV SCH (21:18)
[2018-11-30 22:00] VITALS: BP 118/58
[2018-12-01] MEDS: ALBUTEROL SULFATE 2.5 MG/0.5 ML INH NEB SOLN NEB SCH ×2 (01:43→07:09)
[2018-12-01 05:49] LABS: BASO # 0.1 10^3/uL (0.0-0.2); BASO % 0.4 % (0.0-1.0); EOS # 0.2 10^3/uL (0.0-0.50); HEMATOCRIT 33.4 % (36.0-47.0); HEMOGLOBIN 10.4 g/dl (12.0-15.5); LYMPH # 1.8 10^3/uL (1.5-4.5); LYMPH % 11.4 % (24.0-44.0); MEAN CORPUSCULAR HEMOGLOBIN 30.2 pg (27.0-33.0); MEAN CORPUSCULAR HGB CONC 31.1 g/dl (32.0-36.5); MEAN CORPUSCULAR VOLUME 97.1 fl (80.0-96.0); MONO % 6.1 % (0.0-5.0); NEUTROPHILS # 12.1 10^3/uL (1.8-7.7); NEUTROPHILS % 76.4 % (36.0-66.0); PLATELET COUNT, AUTOMATED 338 10^3/uL (150-450); RED BLOOD COUNT 3.44 10^6/uL (4.00-5.40); WHITE BLOOD COUNT 15.9 10^3/uL (4.0-10.0)
[2018-12-01 06:00] VITALS: BP 150/66
[2018-12-01 06:12] LABS: ALBUMIN 2.3 GM/DL (3.2-5.2); ALT/SGPT 63 U/L (12-78); BILIRUBIN,TOTAL 0.4 MG/DL (0.2-1.0); BLOOD UREA NITROGEN 17 MG/DL (7-18); CARBON DIOXIDE LEVEL 28 MEQ/L (21-32); CHLORIDE LEVEL 105 MEQ/L (98-107); GLOMERULAR FILTRATION RATE > 60.0 (>45); GLUCOSE, FASTING 204 MG/DL (70-100); SODIUM LEVEL 137 MEQ/L (136-145); TOTAL PROTEIN 6.6 GM/DL (6.4-8.2)
[2018-12-01] MEDS: ASPIRIN 81 MG ENTERIC TAB PO SCH (08:13)
[2018-12-01] MEDS: OMEPRAZOLE 20 MG CAP PO SCH (08:13)
[2018-12-01] MEDS: MULTIVITAMINS/MINERALS THERAP 1 TAB PO SCH (08:13)
[2018-12-01] MEDS: methylPREDNISolone INJ 40 MG/1 ML VIAL (J2920) IV SCH (08:13)
[2018-12-01] MEDS: LISINOPRIL 20 MG TAB PO SCH (08:15)
[2018-12-01] MEDS: HumaLOG INSULIN (NovoLOG) PER UNIT SC SCH ×4 (08:17→21:12)
--- NOTE | 2018-12-01 08:57 | IPNPDOC ---
Subjective Date Seen The patient was seen on 12/01/18. Subjective Chief Complaint/HPI SOB Events since last encounter Poorly tolerated weaning off of Venti mask. + for mycoplasma in sputum. + JANSEN. afebrile. WBC elevated at 15,000 this am. Receiving albuterol nebs q 6H and prn. Constitutional: Denies: Chills, Fever, Night Sweats Pulmonary: Reports: Dyspnea, Cough Cardiovascular: Denies: Chest Pain, Palpitations, Orthopnea, Paroxysmal Noc. Dyspnea, Lt Headedness Gastrointestinal: Denies: Nausea, Vomiting, Abdominal Pain, Diarrhea, Constipation Genitourinary: Denies: Dysuria, Frequency, Incontinence, Retention Psych: Reports: Mood Normal; Denies: Depression, Memory Issues Objective Physical Examination General Exam: Positive: Alert, Cooperative, Mild Distress, Other (appears very fatigued) Eye Exam: Positive: Conjunctiva & lids normal; Negative: Sclera icteric ENT Exam: Positive: Atraumatic Neck Exam: Positive: Supple; Negative: Lymphadenopathy Chest Exam: Positive: Rales (bibasilar); Negative: Clear to auscultation, Rhonchi, Wheezing Heart Exam: Positive: Rate Normal, Regular Rhythm, Normal S1, Normal S2 Abdomen Exam: Positive: Normal bowel sounds, Soft, Other (morbidly obese); Negative: Tenderness, Hepatospenomegaly Extremity Exam: Negative: Clubbing, Cyanosis, Edema Skin Exam: Positive: Nl turgor and temperature; Negative: Rash Neuro Exam: Positive: Normal Speech Psych Exam: Positive: Mental status NL, Mood NL, Oriented x 3 Assessment /Plan Problems (1) Acute respiratory failure with hypoxia Status: Acute Problem Text: 11/30/18: poor tolerance to weaning off of Venti mask. Repeat CXR today. added on Ceftriaxone for abx coverage. Solumedrol 80 mg IV q 8 hrs. Duonebs q 6hrs. Continue to attempt weaning down on oxygen. 11/29: Satting 95% on 15 L/min Venturi Mask. Not on FiO2. Lowest O2 saturation on 11/28 was: 84% at 7:15 AM and 87% at 2200. Continue to maintain O2 saturations above 90% with O2 therapy. Continue albuterol neb tx. Continue to monitor pulse oximetry for any desaturation events. Treat underlying cause: Mycoplasma Pneumoniae Pneumonia with Azithromycin. 11/28: Satting 92% on 15 L/min Venturi Mask and FiO2 50%. Lowest O2 saturation was 86% on 11/27. Overnight, patient did desat down to 87% on 11/28 early this AM. Patient has hypoxic respiratory failure likely secondary to Mycoplasma Pneumoniae Pneumonia as evidenced by Respiratory Panel results. Will continue current management and try to maintain O2 saturations above 90%. Have also ordered albuterol nebulizer treatments RQ6H and Q2H PRN. (2) Community acquired pneumonia due to Mycoplasma pneumoniae Status: Acute Problem Text: 11/30/18: Day #3 Azithromycin. Added on Ceftriaxone due to elevated WBC. Can consider changing to quinolone due to poor progression and improvement. 11/29: Day 2 of azithromycin. Continue IV solumedrol. WBC still WNL at 7 but is climbing up. However, patient is on steroid. Has remained afebrile overnight. 11/28: Respiratory Panel was (+) for Mycoplasma Pneumoniae Pneumonia. Patient was originally started on ceftriaxone and azithromycin. Have d/ce'd the ceftriaxone and kept azithromycin for atypical organism coverage. Will continue to trend WBC and CBC. WBC astonishingly is WNL at 6.7 today. Continue O2 supplementation and nebulizer treatments. In addition, have added 40 mg IV solumedrol qdaily x 5 days. (3) Microcytic anemia Status: Acute Problem Text: 11/29: Hgb was 10 (L), MCV was 77 (L), RDW was 17.2 (H), Retic # 59.9 WNL, Retic Hgb Equivalent 23.2(L), iron 45 (L), TIBC 244 (L), transferrin 202 WNL, transferrin % saturation 18.4 WNL, ferritin 105 WNL. Vitamin B12 545 WNL, and Folate 22.6 WNL. Anemia workup reveals etiology to be likely either: anemia of chronic disease and some additional iron deficiency anemia. If patient's ethnicity is Mediterranean origin, then thalassemia workup could be considered. 11/28: Has microcytic anemia on exams with Hgb 10.3 and MCV 77.9. RDW was high at 17.0 (H). Will order iron studies, vitamin B12, and folate to evaluate etiology of anemia. (4) Diabetes mellitus type 2 in obese Status: Chronic Problem Text: 11/29: Serum glucose was 175 (H) and FS was 238 (H). Patient required 10 units sliding scale coverage yesterday. Will start patient on basal insulin at half that dose: detemir 5 units today. Still on ISS coverage at and QHS. 11/28: Patient's last HgbA1C was 7.7 on 10/02/18. Patient was started on her home regimen of metformin 1000 mg BID and glipizide. However, due to patient's risk of going into renal failure during hospitalization with acute infection, will stop metformin for now. In addition, will hold glipizide for now. Will start sliding scale coverage with FS checks at and QHS. Will adjust therapy as necessary. (5) Grade I diastolic dysfunction Status: Chronic Problem Text: 11/28: According to [facility] records on outpatient EMR, patient had Echocardiogram on 08/2018 that showed normal LV internal dimensions and wall thickness, hyperdynamic LV systolic function LVEF 80%, mild dynamic LVOT obstructive gradient, Grade I LV diastolic dysfunction, mild L atrial dilitation, structurally and functioning normal aortic valve, no aortic stenosis, mild dilitation of the aortic root at the level of the sinuses Martha elliott, normal diameter of the proximal ascending aorta, no coarctation of the aorta, moderately technically difficult echocardiogram. Will monitor patient clinically for any signs of heart failure. Her BNP was mildly elevated at 415 (H). Troponin I was <0.02. Total CK was 467 (H), CK-MB: 3 (N), CK-MB relative index was 0.56 (N). EKG done in the ED had shown: sinus rhythm, rate of 80, normal axis, QRS duration 90 ms, QTc interval 408 ms, subtle ST elevation inferiorly, lateral T wave inversion, consider ischemia, no priors for comparison. (6) Endometrial carcinoma Status: Chronic Problem Text: 11/28: Dx 2011, Stage 1B, grade 2, follows with Dr. Barrett in [place]. (7) GERD (gastroesophageal reflux disease) Status: Chronic Problem Text: 11/28: Continue omeprazole 40 mg daily. (8) Elevated liver enzymes Status: Acute Problem Text: 11/29: Liver function tests and enzymes are normalizing and going down. AST was 29 WNL, ALT was 66 WNL, and alk phos has gone down to 151 (H) which was previously 189 (H). Will continue to monitor CMP. 11/28: Of note, patient's AST was 62 (H), ALT was 86 (H), alk phos 189 (H). Liver enzymes were previously normal. Will continue to trend CMP and see if needs further evaluation. (9) Cervical spondylosis without myelopathy Status: Chronic Problem Text: 11/28: Monitor for now. No pain medication ordered. Consider K- pad if needed. LFTs were elevated on labs today. Thus, I do not wish to give her tylenol nor NSAIDs at this time. (10) Hyperlipidemia Status: Chronic Problem Text: 11/28: Continue aspirin 81 mg daily and simvastatin 10 mg QHS. Plan/VTE VTE Prophylaxis Ordered?: Yes (Lovenox 40 mg SC daily) VS, I&O, 24H, Fishbone Vital Signs/I&O Vital Signs Date Time Temp Pulse Resp B/P (MAP) Pulse Ox O2 Delivery O2 Flow Rate FiO2 12/01/18 08:15 131/65 12/01/18 06:00 97.0 61 22 93 Venturi Mask 15.0 11/28/18 14:27 50 I&O- Last 24 Hours up to 6 AM 12/01/18 06:00 Intake Total 2175 ml Output Total 350 ml Balance 1825 ml Laboratory Data 24H LABS Laboratory Tests 2 11/30/18 11:47: Bedside Glucose (Misc Panel) 255H 11/30/18 17:36: Bedside Glucose (Misc Panel) 268H 11/30/18 20:20: Bedside Glucose (Misc Panel) 319H 12/01/18 05:22: Immature Granulocyte % (Auto) 4.7H, White Blood Count 15.9H, Red Blood Count 3.44L, Hemoglobin 10.4L, Hematocrit 33.4L, Mean Corpuscular Volume 97.1H, Mean Corpuscular Hemoglobin 30.2, Mean Corpuscular Hemoglobin Concent 31.1L, Red Cell Distribution Width 13.4, Platelet Count 338, Neutrophils (%) (Auto) 76.4H, Lymphocytes (%) (Auto) 11.4L, Monocytes (%) (Auto) 6.1H, Eosinophils (%) (Auto) 1.0, Basophils (%) (Auto) 0.4, Neutrophils # (Auto) 12.1H, Lymphocytes # (Auto) 1.8, Monocytes # (Auto) 1.0H, Eosinophils # (Auto) 0.2, Basophils # (Auto) 0.1, Nucleated Red Blood Cells % (auto) 0.0, Anion Gap 4L, Glomerular Filtration Rate > 60.0, Blood Urea Nitrogen 17, Creatinine 0.60, Sodium Level 137, Potassium Level 4.0, Chloride Level 105, Carbon Dioxide Level 28, Calcium Level 9.0, Asp artate Amino Transf (AST/SGOT) 27, Alanine Aminotransferase (ALT/SGPT) 63, Alkaline Phosphatase 126H, Total Bilirubin 0.4, Total Protein 6.6, Albumin 2.3L, Albumin/Globulin Ratio 0.53L CBC/BMP Laboratory Tests 12/01/18 05:22 Red Blood Count 3.44 L, Mean Corpuscular Volume 97.1 H, Mean Corpuscular Hemoglobin 30.2, Mean Corpuscular Hemoglobin Concent 31.1 L, Red Cell Distribut ion Width 13.4, Neutrophils (%) (Auto) 76.4 H, Lymphocytes (%) (Auto) 11.4 L, Monocytes (%) (Auto) 6.1 H, Eosinophils (%) (Auto) 1.0, Basophils (%) (Auto) 0.4, Neutrophils # (Auto) 12.1 H, Lymphocytes # (Auto) 1.8, Monocytes # (Auto) 1.0 H, Eosinophils # (Auto) 0.2, Basophils # (Auto) 0.1, Calcium Level 9.0, Aspartate Amino Transf (AST/SGOT) 27, Alanine Aminotransferase (ALT/SGPT) 63, Alkaline Phosphatase 126 H, Total Bilirubin 0.4, Total Protein 6.6, Albumin 2.3 L Microbiology Microbiology 11/27/18 Blood Culture - Preliminary, Resulted No Growth after 72 hours. All specime... 11/27/18 Blood Culture - Preliminary, Resulted No Growth after 72 hours. All specime... 11/27/18 Respiratory Virus Panel (PCR) ([facility]) - Final, Complete Mycoplasma Pneumoniae Karen Orr [employer]URAL WORKER Dec 01, 2018 08:57
[2018-12-01] MEDS ORDERED: methylPREDNISolone INJ 40 MG/1 ML VIAL (J2920) IV ONE (09:30)
--- NOTE | 2018-12-01 10:52 | REP ---
Clinical: Pneumonia. Hypoxia. Technique: PA and lateral. Comparison: 11/27/2018. Findings: [id number] right lower lobe consolidation along with left basilar atelectasis and small bilateral pleural reactions are again identified and appear relatively similar to recent chest CT dated 11/27/2018. No pneumothorax. Cardiac silhouette appears normal. Skeletal structures intact. Impression: Right lower lobe consolidation along with bibasilar atelectasis (left greater than right) and small bilateral pleural reactions similar to recent chest CT. Electronically Signed by Marvin Ochoa MD 12/01/2018 10:44 A
[2018-12-01] MEDS: cefTRIAXone SOD 2 GM in D5W MINI-BAG PLUS 50 ML IV SCH (11:04)
[2018-12-01] MEDS ORDERED: FUROSEMIDE 40 MG/4 ML VIAL (J1940) IV ONE (12:30)
[2018-12-01] MEDS: LACTOBACILLUS ACIDOPHILUS CAP (BACID) PO SCH ×2 (12:59→18:07)
[2018-12-01] MEDS: IPRATROPIUM 0.5MG/ALBUTEROL 2.5MG INH SOL UD 3ML (DUONEB)(J7620) NEB SCH (13:07)
[2018-12-01 14:00] VITALS: BP 148/72
[2018-12-01] MEDS: methylPREDNISolone INJ 125 MG/2 ML VIAL (J2930) IV SCH (18:06)
[2018-12-01] MEDS: ENOXAPARIN 40 MG/0.4 ML SYRINGE (J1650) SC SCH (18:07)
[2018-12-01] MEDS: SIMVASTATIN 10 MG TAB PO SCH (21:11)
[2018-12-01] MEDS: LEVEMIR (INSULIN DETEMIR) 1 UNITS/0.01ML SC SCH (21:11)
[2018-12-01] MEDS: AZITHROMYCIN INJ 500 MG, VIAL MATE ADAPTER 1 EACH in D5W 250 ML IV SCH (21:12)
[2018-12-01 22:00] VITALS: BP 115/58
[2018-12-02] MEDS: methylPREDNISolone INJ 125 MG/2 ML VIAL (J2930) IV SCH ×2 (00:22→07:55)
[2018-12-02] MEDS: IPRATROPIUM 0.5MG/ALBUTEROL 2.5MG INH SOL UD 3ML (DUONEB)(J7620) NEB SCH ×4 (02:00→21:29)
[2018-12-02 06:20] LABS: HEMATOCRIT 39.1 % (36.0-47.0); HEMOGLOBIN 11.8 g/dl (12.0-15.5); MEAN CORPUSCULAR HEMOGLOBIN 23.6 pg (27.0-33.0); MEAN CORPUSCULAR HGB CONC 30.2 g/dl (32.0-36.5); MEAN CORPUSCULAR VOLUME 78.2 fl (80.0-96.0); PLATELET COUNT, AUTOMATED 390 10^3/uL (150-450); WHITE BLOOD COUNT 7.5 10^3/uL (4.0-10.0)
[2018-12-02 06:57] LABS: ALBUMIN 2.7 GM/DL (3.2-5.2); ALT/SGPT 69 U/L (12-78); BILIRUBIN,TOTAL 0.5 MG/DL (0.2-1.0); BLOOD UREA NITROGEN 21 MG/DL (7-18); CARBON DIOXIDE LEVEL 30 MEQ/L (21-32); CHLORIDE LEVEL 99 MEQ/L (98-107); CREATININE FOR GFR 0.77 MG/DL (0.55-1.30); GLOMERULAR FILTRATION RATE > 60.0 (>45); GLUCOSE, FASTING 307 MG/DL (70-100); POTASSIUM SERUM 5.1 MEQ/L (3.5-5.1); SODIUM LEVEL 137 MEQ/L (136-145); TOTAL PROTEIN 6.8 GM/DL (6.4-8.2)
[2018-12-02 07:04] LABS: LYMPHOCYTES 4 % (16-52); MONOCYTES 1 % (0-8); MYELOCYTES 3 % (0-0); NEUTROPHILS 88 % (35-75)
[2018-12-02 07:05] LABS: ANISOCYTOSIS 1+; MICROCYTOSIS 1+; PLATELET ESTIMATE NORMAL (NORMAL); POIKILOCYTOSIS 1+
[2018-12-02] MEDS: OMEPRAZOLE 20 MG CAP PO SCH (07:53)
[2018-12-02] MEDS: MULTIVITAMINS/MINERALS THERAP 1 TAB PO SCH (07:54)
[2018-12-02] MEDS: HumaLOG INSULIN (NovoLOG) PER UNIT SC SCH ×4 (07:54→21:34)
[2018-12-02] MEDS: LISINOPRIL 20 MG TAB PO SCH (07:54)
[2018-12-02] MEDS: LACTOBACILLUS ACIDOPHILUS CAP (BACID) PO SCH ×3 (07:54→17:41)
[2018-12-02] MEDS: ASPIRIN 81 MG ENTERIC TAB PO SCH (07:54)
[2018-12-02] MEDS ORDERED: predniSONE 20 MG TAB PO SCH (09:00)
--- NOTE | 2018-12-02 09:08 | IPNPDOC ---
Subjective Date Seen The patient was seen on 12/02/18. Subjective Chief Complaint/HPI SOB Events since last encounter Found to have bilateral pleural effusions on CXR. Given Lasix 40 mg IV x 1 with 2000 ml out. Remains in + for I/O. Was able to wean oxygen from Venti mask down to 8LNC. Patient notes improvement in symptoms, yet remains with + JANSEN and cough. Constitutional: Denies: Chills, Fever, Night Sweats Skin: Denies: Rash, Lesions, Breakdown Pulmonary: Reports: Dyspnea, Cough Cardiovascular: Denies: Chest Pain, Palpitations, Orthopnea, Paroxysmal Noc. Dyspnea, Lt Headedness Gastrointestinal: Denies: Nausea, Vomiting, Abdominal Pain, Diarrhea, Constipation Genitourinary: Denies: Dysuria, Frequency, Incontinence, Retention Psych: Reports: Mood Normal; Denies: Depression, Memory Issues Objective Physical Examination General Exam: Positive: Alert, Cooperative, Mild Distress, Other (appears very fatigued) Eye Exam: Positive: Conjunctiva & lids normal; Negative: Sclera icteric ENT Exam: Positive: Atraumatic Neck Exam: Positive: Supple; Negative: Lymphadenopathy Chest Exam: Positive: Wheezing (occasional); Negative: Clear to auscultation, Rales, Rhonchi Heart Exam: Positive: Rate Normal, Regular Rhythm, Normal S1, Normal S2 Abdomen Exam: Positive: Normal bowel sounds, Soft, Other (morbidly obese); Negative: Tenderness, Hepatospenomegaly Extremity Exam: Negative: Clubbing, Cyanosis, Edema Skin Exam: Positive: Nl turgor and temperature; Negative: Rash Neuro Exam: Positive: Normal Speech Psych Exam: Positive: Mental status NL, Mood NL, Oriented x 3 Assessment /Plan Problems (1) Acute respiratory failure with hypoxia Status: Acute Problem Text: 12/02/18: Improvement with increase in solumedrol, lasix and duonebs. Will cut solumedrol down to prednisone 60 mg po daily. Furosemide 40 mg x 1 again today. Will give fluid restriction until properly diuresed. Patient agreeable and showing improvement in condition. 12/01/18: poor tolerance to weaning off of Venti mask. Repeat CXR today. added on Ceftriaxone for abx coverage. Solumedrol 80 mg IV q 8 hrs. Duonebs q 6hrs. Continue to attempt weaning down on oxygen. 11/29: Satting 95% on 15 L/min Venturi Mask. Not on FiO2. Lowest O2 saturation on 11/28 was: 84% at 7:15 AM and 87% at 2200. Continue to maintain O2 sa turations above 90% with O2 therapy. Continue albuterol neb tx. Continue to monitor pulse oximetry for any desaturation events. Treat underlying cause: Mycoplasma Pneumoniae Pneumonia with Azithromycin. 11/28: Satting 92% on 15 L/min Venturi Mask and FiO2 50%. Lowest O2 saturation was 86% on 11/27. Overnight, patient did desat down to 87% on 11/28 early this AM. Patient has hypoxic respiratory failure likely secondary to Mycoplasma Pneumoniae Pneumonia as evidenced by Respiratory Panel results. Will continue current management and try to maintain O2 saturations above 90%. Have also ordered albuterol nebulizer treatments RQ6H and Q2H PRN. (2) Community acquired pneumonia due to Mycoplasma pneumoniae Status: Acute Problem Text: 12/02/17: Ceftriaxone day#2. Day #4 Ceftriaxone 12/01/18: Day #3 Azithromycin. Added on Ceftriaxone due to elevated WBC. Can consider changing to quinolone due to poor progression and improvement. 11/29: Day 2 of azithromycin. Continue IV solumedrol. WBC still WNL at 7 but is climbing up. However, patient is on steroid. Has remained afebrile overnight. 11/28: Respiratory Panel was (+) for Mycoplasma Pneumoniae Pneumonia. Patient was originally started on ceftriaxone and azithromycin. Have d/ce'd the ceftriaxone and kept azithromycin for atypical organism coverage. Will continue to trend WBC and CBC. WBC astonishingly is WNL at 6.7 today. Continue O2 supplementation and nebulizer treatments. In addition, have added 40 mg IV solumedrol qdaily x 5 days. (3) Pleural effusion Status: Acute Problem Text: 12/02/17: volume overload noted in in-patient setting. Given lasix 40 mg IV x 1 yesterday. will give additional today. strict I/O and 1500 ml fluid restriction. (4) Microcytic anemia Status: Acute Problem Text: 11/29: Hgb was 10 (L), MCV was 77 (L), RDW was 17.2 (H), Retic # 59.9 WNL, Retic Hgb Equivalent 23.2(L), iron 45 (L), TIBC 244 (L), transferrin 202 WNL, transferrin % saturation 18.4 WNL, ferritin 105 WNL. Vitamin B12 545 WNL, and Folate 22.6 WNL. Anemia workup reveals etiology to be likely either: anemia of chronic disease and some additional iron deficiency anemia. If patient's ethnicity is Mediterranean origin, then thalassemia workup could be considered. 11/28: Has microcytic anemia on exams with Hgb 10.3 and MCV 77.9. RDW was high at 17.0 (H). Will order iron studies, vitamin B12, and folate to evaluate etiology of anemia. (5) Diabetes mellitus type 2 in obese Status: Chronic Problem Text: 12/02/17: blood sugars have been elevated with steroids. Continue with sliding scale and monitoring. 11/29: Serum glucose was 175 (H) and FS was 238 (H). Patient required 10 units sliding scale coverage yesterday. Will start patient on basal insulin at half that dose: detemir 5 units today. Still on ISS coverage at AC and QHS. 11/28: Patient's last HgbA1C was 7.7 on 10/02/18. Patient was started on her home regimen of metformin 1000 mg BID and glipizide. However, due to patient's risk of going into renal failure during hospitalization with acute infection, will stop metformin for now. In addition, will hold glipizide for now. Will start sliding scale coverage with FS checks at AC and QHS. Will adjust therapy as necessary. (6) Grade I diastolic dysfunction Status: Chronic Problem Text: 12/02/17: volume overload noted in in-patient setting. Given lasix 40 mg IV x 1 yesterday. will give additional today. strict I/O and 1500 ml fluid restriction. 11/28: According to [facility] records on outpatient EMR, patient had Echocardiogram on 08/2018 that showed normal LV internal dimensions and wall thickness, hyperdynamic LV systolic function LVEF 80%, mild dynamic LVOT obstructive gradient, Grade I LV diastolic dysfunction, mild L atrial dilitation, structurally and functioning normal aortic valve, no aortic stenosis, mild dilitation of the aortic root at the level of the sinuses Valsalva, normal diameter of the proximal ascending aorta, no coarctation of the aorta, moderately technically difficult echocardiogram. Will monitor patient clinically for any signs of heart failure. Her BNP was mildly elevated at 415 (H). Troponin I was <0.02. Total CK was 467 (H), CK-MB: 3 (N), CK-MB relative index was 0.56 (N). EKG done in the ED had shown: sinus rhythm, rate of 80, normal axis, QRS d uration 90 ms, QTc interval 408 ms, subtle ST elevation inferiorly, lateral T wave inversion, consider ischemia, no priors for comparison. (7) Endometrial carcinoma Status: Chronic Problem Text: 11/28: Dx 2011, Stage 1B, grade 2, follows with Dr. Barrett in [place]. (8) GERD (gastroesophageal reflux disease) Status: Chronic Problem Text: 11/28: Continue omeprazole 40 mg daily. (9) Elevated liver enzymes Status: Acute Problem Text: 11/29: Liver function tests and enzymes are normalizing and going down. AST was 29 WNL, ALT was 66 WNL, and alk phos has gone down to 151 (H) which was previously 189 (H). Will continue to monitor CMP. 11/28: Of note, patient's AST was 62 (H), ALT was 86 (H), alk phos 189 (H). Liver enzymes were previously normal. Will continue to trend CMP and see if needs further evaluation. (10) Cervical spondylosis without myelopathy Status: Chronic Problem Text: 11/28: Monitor for now. No pain medication ordered. Consider K- pad if needed. LFTs were elevated on labs today. Thus, I do not wish to give her tylenol nor NSAIDs at this time. (11) Hyperlipidemia Status: Chronic Problem Text: 11/28: Continue aspirin 81 mg daily and simvastatin 10 mg QHS. Plan/VTE VTE Prophylaxis Ordered?: Yes (Lovenox 40 mg SC daily) VS, I&O, 24H, Fishbone Vital Signs/I&O Vital Signs Date Time Temp Pulse Resp B/P (MAP) Pulse Ox O2 Delivery O2 Flow Rate FiO2 12/02/18 07:54 131/65 12/01/18 22:00 97.8 83 18 93 Venturi Mask 8.0 11/28/18 14:27 50 I&O- Last 24 Hours up to 6 AM 12/02/18 06:00 Intake Total 1580 ml Output Total 1750 ml Balance -170 ml Laboratory Data 24H LABS Laboratory Tests 2 12/01/18 11:58: Bedside Glucose (Misc Panel) 268H 12/01/18 16:38: Bedside Glucose (Misc Panel) 379H 12/01/18 19:51: Bedside Glucose (Misc Panel) 380H 12/02/18 05:35: Immature Granulocyte % (Auto) , Nucleated Red Blood Cells % (auto) 0.0, Neutrophils 88H, Band Neutrophils 4, Lymphocytes (Manual) 4L, Monocytes (Manual) 1, Myelocytes 3H, Platelet Estimate NORMAL, Poikilocytosis 1+, Anisocytosis 1+, Microcytosis 1+, Anion Gap 8, Glomerular Filtration Rate > 60.0, Blood Urea Nitrogen 21H, Creatinine 0.77, Sodium Level 137, Potassium Level 5.1#, Chloride Level 99, Carbon Dioxide Level 30, Calcium Level 9.0, Aspartate Amino Transf (AST/SGOT) 19, Alanine Aminotransferase (ALT/SGPT) 69, Alkaline Phosphatase 133H, Total Bilirubin 0.5, Total Protein 6.8, Albumin 2.7L, Albumin/Globulin Ratio 0.66L CBC/BMP Laboratory Tests 12/02/18 05:35 Red Blood Count 5.00, Mean Corpuscular Volume 78.2 L, Mean Corpuscular Hemoglobin 23.6 L, Mean Corpuscular Hemoglobin Concent 30.2 L, Red Cell Distribution Width 16.8 H, Calcium Level 9.0, Aspartate Amino Transf (AST/SGOT) 19, Alanine Aminotransferase (ALT/SGPT) 69, Alkaline Phosphatase 133 H, Total Bilirubin 0.5, Total Protein 6.8, Albumin 2.7 L Microbiology Microbiology 11/27/18 Blood Culture - Preliminary, Resulted No Growth after 72 hours. All specime... 11/27/18 Blood Culture - Preliminary, Resulted No Growth after 72 hours. All specime... 11/27/18 Respiratory Virus Panel (PCR) ([facility]) - Final, Complete Mycoplasma Pneumoniae Karen Orr Dec 02, 2018 09:08
[2018-12-02] MEDS: cefTRIAXone SOD 2 GM in D5W MINI-BAG PLUS 50 ML IV SCH (09:44)
[2018-12-02] MEDS ORDERED: FUROSEMIDE 40 MG/4 ML VIAL (J1940) IV ONE (10:00)
[2018-12-02 14:00] VITALS: BP 122/56
[2018-12-02] MEDS: ENOXAPARIN 40 MG/0.4 ML SYRINGE (J1650) SC SCH (17:41)
[2018-12-02] MEDS: SIMVASTATIN 10 MG TAB PO SCH (21:34)
[2018-12-02] MEDS: LEVEMIR (INSULIN DETEMIR) 1 UNITS/0.01ML SC SCH (21:35)
[2018-12-02] MEDS: AZITHROMYCIN INJ 500 MG, VIAL MATE ADAPTER 1 EACH in D5W 250 ML IV SCH (21:35)
[2018-12-02 22:00] VITALS: BP 118/67
[2018-12-03] MEDS: IPRATROPIUM 0.5MG/ALBUTEROL 2.5MG INH SOL UD 3ML (DUONEB)(J7620) NEB SCH ×4 (01:12→21:21)
[2018-12-03 05:54] LABS: HEMATOCRIT 37.9 % (36.0-47.0); HEMOGLOBIN 11.4 g/dl (12.0-15.5); MEAN CORPUSCULAR HGB CONC 30.1 g/dl (32.0-36.5); MEAN CORPUSCULAR VOLUME 76.6 fl (80.0-96.0); PLATELET COUNT, AUTOMATED 390 10^3/uL (150-450); RED BLOOD COUNT 4.95 10^6/uL (4.00-5.40); WHITE BLOOD COUNT 8.7 10^3/uL (4.0-10.0)
[2018-12-03 06:00] VITALS: BP 122/70
[2018-12-03 06:27] LABS: ALBUMIN 2.5 GM/DL (3.2-5.2); ALT/SGPT 57 U/L (12-78); BILIRUBIN,TOTAL 0.4 MG/DL (0.2-1.0); BLOOD UREA NITROGEN 26 MG/DL (7-18); CARBON DIOXIDE LEVEL 30 MEQ/L (21-32); CHLORIDE LEVEL 99 MEQ/L (98-107); CREATININE FOR GFR 0.83 MG/DL (0.55-1.30); GLOMERULAR FILTRATION RATE > 60.0 (>45); GLUCOSE, FASTING 348 MG/DL (70-100); POTASSIUM SERUM 3.6 MEQ/L (3.5-5.1); SODIUM LEVEL 137 MEQ/L (136-145); TOTAL PROTEIN 6.5 GM/DL (6.4-8.2)
[2018-12-03 06:44] LABS: ATYPICAL LYMPH 1 % (0-5); EOSINOPHILS 1 % (0-5); LYMPHOCYTES 16 % (16-52); METAMYELOCYTES 2 % (0-0); MONOCYTES 5 % (0-8); NEUTROPHILS 74 % (35-75); PLATELET ESTIMATE NORMAL (NORMAL)
[2018-12-03 06:45] LABS: ANISOCYTOSIS 1+; MICROCYTOSIS 1+
[2018-12-03 06:49] LABS: OVALOCYTES 1+
--- NOTE | 2018-12-03 07:36 | IPNPDOC ---
Subjective Date Seen The patient was seen on 12/03/18. Subjective Chief Complaint/HPI SOB Events since last encounter Continues to show improvement. Weaned down to 3LNC for oxygenation. Diuresed with -2L on I/O. Nursing reports coughing with hypoxia with exertional movement. Afebrile. Blood sugars remain elevated on high doses of Steroid. Constitutional: Denies: Chills, Fever, Night Sweats Pulmonary: Reports: Dyspnea, Cough Cardiovascular: Denies: Chest Pain, Palpitations, Orthopnea, Paroxysmal Noc. Dyspnea, Lt Headedness Gastrointestinal: Denies: Nausea, Vomiting, Abdominal Pain, Diarrhea, Constipation Genitourinary: Denies: Dysuria, Frequency, Incontinence, Retention Objective Physical Examination General Exam: Positive: Alert, Cooperative, Mild Distress, Other (appears very fatigued) Eye Exam: Positive: Conjunctiva & lids normal; Negative: Sclera icteric ENT Exam: Positive: Atraumatic Neck Exam: Positive: Supple; Negative: Lymphadenopathy Chest Exam: Negative: Clear to auscultation, Rales, Rhonchi, Wheezing Heart Exam: Positive: Rate Normal, Regular Rhythm, Normal S1, Normal S2 Abdomen Exam: Positive: Normal bowel sounds, Soft, Other (morbidly obese); Negative: Tenderness, Hepatospenomegaly Extremity Exam: Negative: Clubbing, Cyanosis, Edema Skin Exam: Positive: Nl turgor and temperature; Negative: Rash Neuro Exam: Positive: Normal Speech Psych Exam: Positive: Mental status NL, Mood NL, Oriented x 3 Assessment /Plan Problems (1) Acute respiratory failure with hypoxia Status: Acute Problem Text: 12/03/17: Slow improvement. repeat CXR today. Continue current medication regimen. PT ordered. 12/02/18: Improvement with increase in solumedrol, lasix and duonebs. Will cut solumedrol down to prednisone 60 mg po daily. Furosemide 40 mg x 1 again today. Will give fluid restriction until properly diuresed. Patient agreeable and showing improvement in condition. 12/01/18: poor tolerance to weaning off of Venti mask. Repeat CXR today. added on Ceftriaxone for abx coverage. Solumedrol 80 mg IV q 8 hrs. Duonebs q 6hrs. Continue to attempt weaning down on oxygen. 11/29: Satting 95% on 15 L/min Venturi Mask. Not on FiO2. Lowest O2 saturation on 11/28 was: 84% at 7:15 AM and 87% at 2200. Continue to maintain O2 saturations above 90% with O2 therapy. Continue albuterol neb tx. Continue to monitor pulse oximetry for any desaturation events. Treat underlying cause: Mycoplasma Pneumoniae Pneumonia with Azithromycin. 11/28: Satting 92% on 15 L/min Venturi Mask and FiO2 50%. Lowest O2 saturation was 86% on 11/27. Overnight, patient did desat down to 87% on 11/28 early this AM. Patient has hypoxic respiratory failure likely secondary to Mycoplasma Pneumoniae Pneumonia as evidenced by Respiratory Panel results. Will continue current management and try to maintain O2 saturations above 90%. Have also ordered albuterol nebulizer treatments RQ6H and Q2H PRN. (2) Community acquired pneumonia due to Mycoplasma pneumoniae Status: Acute Problem Text: 12/03/17: 12/02/17: Ceftriaxone day#3. Day #5 Azithromycin 12/02/17: Ceftriaxone day#2. Day #4 Ceftriaxone 12/01/18: Day #3 Azithromycin. Added on Ceftriaxone due to elevated WBC. Can consider changing to quinolone due to poor progression and improvement. 11/29: Day 2 of azithromycin. Continue IV solumedrol. WBC still WNL at 7 but is climbing up. However, patient is on steroid. Has remained afebrile overnight. 11/28: Respiratory Panel was (+) for Mycoplasma Pneumoniae Pneumonia. Patient was originally started on ceftriaxone and azithromycin. Have d/ce'd the ceftriaxone and kept azithromycin for atypical organism coverage. Will continue to trend WBC and CBC. WBC astonishingly is WNL at 6.7 today. Continue O2 supplementation and nebulizer treatments. In addition, have added 40 mg IV solumedrol qdaily x 5 days. (3) Pleural effusion Status: Acute Problem Text: 12/02/17: volume overload noted in in-patient setting. Given lasix 40 mg IV x 1 yesterday. will give additional today. strict I/O and 1500 ml fluid restriction. (4) Microcytic anemia Status: Acute Problem Text: 11/29: Hgb was 10 (L), MCV was 77 (L), RDW was 17.2 (H), Retic # 59.9 WNL, Retic Hgb Equivalent 23.2(L), iron 45 (L), TIBC 244 (L), transferrin 202 WNL, transferrin % saturation 18.4 WNL, ferritin 105 WNL. Vitamin B12 545 WNL, and Folate 22.6 WNL. Anemia workup reveals etiology to be likely either: anemia of chronic disease and some additional iron deficiency anemia. If lissett ent's ethnicity is Mediterranean origin, then thalassemia workup could be considered. 11/28: Has microcytic anemia on exams with Hgb 10.3 and MCV 77.9. RDW was high at 17.0 (H). Will order iron studies, vitamin B12, and folate to evaluate etiology of anemia. (5) Diabetes mellitus type 2 in obese Status: Chronic Problem Text: 12/02/17: blood sugars have been elevated with steroids. Continue with sliding scale and monitoring. 11/29: Serum glucose was 175 (H) and FS was 238 (H). Patient required 10 units sliding scale coverage yesterday. Will start patient on basal insulin at half that dose: detemir 5 units today. Still on ISS coverage at AC and QHS. 11/28: Patient's last HgbA1C was 7.7 on 10/02/18. Patient was started on her home regimen of metformin 1000 mg BID and glipizide. However, due to patient's risk of going into renal failure during hospitalization with acute infection, will stop metformin for now. In addition, will hold glipizide for now. Will start sliding scale coverage with FS checks at AC and QHS. Will adjust therapy as necessary. (6) Grade I diastolic dysfunction Status: Chronic Problem Text: 12/02/17: volume overload noted in in-patient setting. Given lasix 40 mg IV x 1 yesterday. will give additional today. strict I/O and 1500 ml fluid restriction. 11/28: According to [facility] records on outpatient EMR, patient had Echocardiogram on 08/2018 that showed normal LV internal dimensions and wall thickness, hyperdynamic LV systolic function LVEF 80%, mild dynamic LVOT obstructive gradient, Grade I LV diastolic dysfunction, mild L atrial dilitation, structurally and functioning normal aortic valve, no aortic stenosis, mild dilitation of the aortic root at the level of the sinuses Valsalva, normal diameter of the proximal ascending aorta, no coarctation of the aorta, moderately technically difficult echocardiogram. Will monitor patient clinically for any signs of heart failure. Her BNP was mildly elevated at 415 (H). Troponin I was <0.02. Total CK was 467 (H), CK-MB: 3 (N), CK-MB relative index was 0.56 (N). EKG done in the ED had shown: sinus rhythm, rate of 80, normal axis, QRS duration 90 ms, QTc interval 408 ms, subtle ST elevation inferiorly, lateral T wave inversion, consider ischemia, no priors for comparison. (7) Endometrial carcinoma Status: Chronic Problem Text: 11/28: Dx 2011, Stage 1B, grade 2, follows with Dr. Barrett in [place]. (8) GERD (gastroesophageal reflux disease) Status: Chronic Problem Text: 11/28: Continue omeprazole 40 mg daily. (9) Elevated liver enzymes Status: Acute Problem Text: 11/29: Liver function tests and enzymes are normalizing and going down. AST was 29 WNL, ALT was 66 WNL, and alk phos has gone down to 151 (H) which was previously 189 (H). Will continue to monitor CMP. 11/28: Of note, patient's AST was 62 (H), ALT was 86 (H), alk phos 189 (H). Liver enzymes were previously normal. Will continue to trend CMP and see if needs further evaluation. (10) Cervical spondylosis without myelopathy Status: Chronic Problem Text: 11/28: Monitor for now. No pain medication ordered. Consider K- pad if needed. LFTs were elevated on labs today. Thus, I do not wish to give her tylenol nor NSAIDs at this time. (11) Hyperlipidemia Status: Chronic Problem Text: 11/28: Continue aspirin 81 mg daily and simvastatin 10 mg QHS. Plan/VTE VTE Prophylaxis Ordered?: Yes (Lovenox 40 mg SC daily) VS, I&O, 24H, Fishbone Vital Signs/I&O Vital Signs Date Time Temp Pulse Resp B/P (MAP) Pulse Ox O2 Delivery O2 Flow Rate FiO2 12/03/18 06:00 96.6 58 22 122/70 (87) 95 Nasal Cannula 3.0 11/28/18 14:27 50 I&O- Last 24 Hours up to 6 AM 12/03/18 05:59 Intake Total 1010 ml Output Total 3700 ml Balance -2690 ml Laboratory Data 24H LABS Laboratory Tests 2 12/02/18 11:43: Bedside Glucose (Misc Panel) 476H 12/02/18 16:38: Bedside Glucose (Misc Panel) 369H 12/02/18 20:03: Bedside Glucose (Misc Panel) 422H 12/03/18 05:21: Immature Granulocyte % (Auto) , Nucleated Red Blood Cells % (auto) 0.2H, Neutrophils 74, Band Neutrophils 1, Lymphocytes (Manual) 16, Monocytes (Manual) 5, Eosinophils (Manual) 1, Metamyelocytes 2H, Atypical Lymphocytes 1, Platelet Estimate NORMAL, Anisocytosis 1+, Microcytosis 1+, Ovalocytes 1+, Anion Gap 8, Glomerular Filtration Rate > 60.0, Blood Urea Nitrogen 26H, Creatinine 0.83, Sodium Level 137, Potassium Level 3.6#, Chloride Level 99, Carbon Dioxide Level 30, Calcium Level 9.0, Aspartate Amino Transf (AST/SGOT) 16, Alanine Aminotransferase (ALT/SGPT) 57, Alkaline Phosphatase 122H, Total Bilirubin 0.4, Total Protein 6.5, Albumin 2.5L, Albumin/Globulin Ratio 0.63L CBC/BMP Laboratory Tests 12/03/18 05:21 Red Blood Count 4.95, Mean Corpuscular Volume 76.6 L, Mean Corpuscular Hemoglobin 23.0 L, Mean Corpuscular Hemoglobin Concent 30.1 L, Red Cell Distribution Width 17.0 H, Calcium Level 9.0, Aspartate Amino Transf (AST/SGOT) 16, Alanine Aminotransferase (ALT/SGPT) 57, Alkaline Phosphatase 122 H, Total Bilirubin 0.4, Total Protein 6.5, Albumin 2.5 L Microbiology Microbiology 11/27/18 Blood Culture - Final, Complete NO GROWTH AFTER 5 DAYS 11/27/18 Blood Culture - Final, Complete NO GROWTH AFTER 5 DAYS 11/27/18 Respiratory Virus Panel (PCR) ([facility]) - Final, Complete Mycoplasma Pneumoniae Karen Orr [employer] Dec 03, 2018 07:36
[2018-12-03] MEDS: LACTOBACILLUS ACIDOPHILUS CAP (BACID) PO SCH ×3 (07:58→17:30)
[2018-12-03] MEDS: HumaLOG INSULIN (NovoLOG) PER UNIT SC SCH ×4 (07:58→21:08)
[2018-12-03] MEDS: ASPIRIN 81 MG ENTERIC TAB PO SCH (07:58)
[2018-12-03] MEDS: MULTIVITAMINS/MINERALS THERAP 1 TAB PO SCH (07:59)
[2018-12-03] MEDS: LISINOPRIL 20 MG TAB PO SCH (07:59)
[2018-12-03] MEDS: predniSONE 20 MG TAB PO SCH (07:59)
[2018-12-03] MEDS: OMEPRAZOLE 20 MG CAP PO SCH (07:59)
[2018-12-03] MEDS: cefTRIAXone SOD 2 GM in D5W MINI-BAG PLUS 50 ML IV SCH (10:14)
[2018-12-03] MEDS ORDERED: SODIUM CHLORIDE NASAL 0.65% SPRAY BTL (OCEAN) PRN (10:30)
--- NOTE | 2018-12-03 11:27 | REP ---
CHEST X-RAY: TWO VIEWS. HISTORY: Pneumonia. Pleural effusion. COMPARISON STUDY: December 01, 2018 FINDINGS: There is consolidation with air bronchograms persisting in the right lower lobe on frontal and lateral views, unchanged. This is consistent with pneumonia. There is some linear discoid atelectasis and/or fibrosis in the left base. Mild cardiomegaly persists, unchanged. No new infiltrate is seen. IMPRESSION: Persistent consolidation right lower lobe consistent with pneumonia. Electronically Signed by Venkat Art MD 12/03/2018 06:44 P
[2018-12-03 14:00] VITALS: BP 119/60
[2018-12-03] MEDS: ENOXAPARIN 40 MG/0.4 ML SYRINGE (J1650) SC SCH (17:30)
[2018-12-03] MEDS: guaiFENesin DM LIQ 10ML UD PO PRN (18:35)
[2018-12-03] MEDS: SIMVASTATIN 10 MG TAB PO SCH (21:07)
[2018-12-03] MEDS: AZITHROMYCIN INJ 500 MG, VIAL MATE ADAPTER 1 EACH in D5W 250 ML IV SCH (21:08)
[2018-12-03] MEDS: LEVEMIR (INSULIN DETEMIR) 1 UNITS/0.01ML SC SCH (21:08)
[2018-12-03 22:00] VITALS: BP 140/66
[2018-12-04] MEDS: IPRATROPIUM 0.5MG/ALBUTEROL 2.5MG INH SOL UD 3ML (DUONEB)(J7620) NEB SCH ×4 (03:50→19:35)
[2018-12-04 05:50] LABS: HEMATOCRIT 38.8 % (36.0-47.0); HEMOGLOBIN 11.8 g/dl (12.0-15.5); MEAN CORPUSCULAR HEMOGLOBIN 23.8 pg (27.0-33.0); MEAN CORPUSCULAR HGB CONC 30.4 g/dl (32.0-36.5); MEAN CORPUSCULAR VOLUME 78.2 fl (80.0-96.0); PLATELET COUNT, AUTOMATED 343 10^3/uL (150-450); RED BLOOD COUNT 4.96 10^6/uL (4.00-5.40); WHITE BLOOD COUNT 7.4 10^3/uL (4.0-10.0)
[2018-12-04 06:00] VITALS: BP 116/74
[2018-12-04 06:13] LABS: ALBUMIN 2.6 GM/DL (3.2-5.2); ALT/SGPT 60 U/L (12-78); BILIRUBIN,TOTAL 0.4 MG/DL (0.2-1.0); BLOOD UREA NITROGEN 22 MG/DL (7-18); CARBON DIOXIDE LEVEL 31 MEQ/L (21-32); CHLORIDE LEVEL 101 MEQ/L (98-107); CREATININE FOR GFR 0.79 MG/DL (0.55-1.30); GLOMERULAR FILTRATION RATE > 60.0 (>45); GLUCOSE, FASTING 281 MG/DL (70-100); POTASSIUM SERUM 3.7 MEQ/L (3.5-5.1); SODIUM LEVEL 140 MEQ/L (136-145); TOTAL PROTEIN 6.7 GM/DL (6.4-8.2)
[2018-12-04] MEDS: guaiFENesin DM LIQ 10ML UD PO PRN (06:14)
[2018-12-04 06:27] LABS: ANISOCYTOSIS 1+; EOSINOPHILS 3 % (0-5); LYMPHOCYTES 22 % (16-52); METAMYELOCYTES 2 % (0-0); MICROCYTOSIS 1+; MONOCYTES 4 % (0-8); MYELOCYTES 2 % (0-0); NEUTROPHILS 66 % (35-75); PLATELET ESTIMATE NORMAL (NORMAL)
[2018-12-04 06:28] LABS: OVALOCYTES 1+
[2018-12-04] MEDS: predniSONE 20 MG TAB PO SCH (07:43)
[2018-12-04] MEDS: LISINOPRIL 20 MG TAB PO SCH (07:43)
[2018-12-04] MEDS: ASPIRIN 81 MG ENTERIC TAB PO SCH (07:43)
[2018-12-04] MEDS: LACTOBACILLUS ACIDOPHILUS CAP (BACID) PO SCH ×3 (07:43→17:39)
[2018-12-04] MEDS: MULTIVITAMINS/MINERALS THERAP 1 TAB PO SCH (07:43)
[2018-12-04] MEDS: HumaLOG INSULIN (NovoLOG) PER UNIT SC SCH ×4 (07:44→21:12)
[2018-12-04] MEDS: OMEPRAZOLE 20 MG CAP PO SCH (07:44)
[2018-12-04] MEDS ORDERED: guaiFENesin DM LIQ 10ML UD PO SCH (09:00)
[2018-12-04] MEDS: cefTRIAXone SOD 2 GM in D5W MINI-BAG PLUS 50 ML IV SCH (10:11)
--- NOTE | 2018-12-04 10:59 | IPNPDOC ---
Subjective Date Seen The patient was seen on 12/04/18. Subjective Chief Complaint/HPI Patient seen and examined at bedside. States she feels a little better. However, she cannot expectorate sputum that well. Is still coughing. Feels less SOB than prior. Does have dyspnea on exertion and when walking. When walking, cough is exacerbated. Has a bit of a sore throat and hoarse voice. Admits to constipation. General: Reports: Fatigue, Normal Appetite Constitutional: Denies: Chills, Fever ENT: Denies: Head Aches Skin: Denies: Rash Pulmonary: Reports: Dyspnea (on exertion), Cough Cardiovascular: Denies: Chest Pain Gastrointestinal: Reports: Constipation; Denies: Nausea, Vomiting, Abdominal Pain, Diarrhea Genitourinary: Denies: Dysuria Hematologic: Denies: Bruising Endocrine: Denies: Heat Intolerance, Cold Intolerance Musculoskeletal: Reports: Other Symptoms (admits to chest congestion); Denies: Joint Pain, Muscle Pain Neurological: Denies: Weakness, Confusion Psych: Reports: Mood Normal Objective Physical Examination General Exam: Positive: Alert, Cooperative, Mild Distress, Other (appears less fatigued today than prior) Eye Exam: Positive: Conjunctiva & lids normal; Negative: Sclera icteric ENT Exam: Positive: Atraumatic Neck Exam: Positive: Supple Chest Exam: Positive: Rhonchi (scattered and mainly in R lower lung pepper. Much improved from prior.); Negative: Clear to auscultation, Rales, Wheezing Heart Exam: Positive: Rate Normal, Regular Rhythm, Normal S1, Normal S2; Negative: Murmurs Telemetry: Positive: Sinus Abdomen Exam: Positive: Normal bowel sounds, Soft, Other (morbidly obese); Negative: Tenderness, Hepatospenomegaly Extremity Exam: Negative: Clubbing, Cyanosis, Edema Skin Exam: Positive: Nl turgor and temperature; Negative: Rash Neuro Exam: Positive: Normal Speech Psych Exam: Positive: Mental status NL, Mood NL, Oriented x 3 Assessment /Plan Problems (1) Acute respiratory failure with hypoxia Status: Acute Problem Text: 12/04/18: Gradually improving. Has been weaned down to 3 liters nasal cannula. Repeat CXR yesterday showed: persistent consolidation RLL consistent with pneumonia. Working with PT and was cleared by PT yesterday. Continue current regimen: prednisone 60 mg PO daily, duonebs, humidified oxygen. Have also added guaifenesin/dextromethorphan to be q4h routine instead of PRN. Will continue 1500 mL fluid restriction to avoid fluid overload/pleural effusions. Will plan to start tapering prednisone tomorrow. 12/03/18: Slow improvement. repeat CXR today. Continue current medication regimen. PT ordered. 12/02/18: Improvement with increase in solumedrol, lasix and duonebs. Will cut solumedrol down to prednisone 60 mg po daily. Furosemide 40 mg x 1 again today. Will give fluid restriction until properly diuresed. Patient agreeable and showing improvement in condition. 12/01/18: poor tolerance to weaning off of Venti mask. Repeat CXR today. added on Ceftriaxone for abx coverage. Solumedrol 80 mg IV q 8 hrs. Duonebs q 6hrs. Continue to attempt weaning down on oxygen. 11/29: Satting 95% on 15 L/min Venturi Mask. Not on FiO2. Lowest O2 saturation on 11/28 was: 84% at 7:15 AM and 87% at 2200. Continue to maintain O2 saturations above 90% with O2 therapy. Continue albuterol neb tx. Continue to monitor pulse oximetry for any desaturation events. Treat underlying cause: Mycoplasma Pneumoniae Pneumonia with Azithromycin. 11/28: Satting 92% on 15 L/min Venturi Mask and FiO2 50%. Lowest O2 saturation was 86% on 11/27. Overnight, patient did desat down to 87% on 11/28 early this AM. Patient has hypoxic respiratory failure likely secondary to Mycoplasma Pneumoniae Pneumonia as evidenced by Respiratory Panel results. Will continue current management and try to maintain O2 saturations above 90%. Have also ordered albuterol nebulizer treatments RQ6H and Q2H PRN. (2) Community acquired pneumonia due to Mycoplasma pneumoniae Status: Acute Problem Text: 12/04/18: Day #4 of Ceftriaxone and Day #6 of Azithromycin. WBC is WNL at 7.4 and has normalized since December 01. Patient is clinically improving. Oxygen has been weaned down to 3 liters. Continue antibiotics and duonebs. 12/03/18: 12/02/17: Ceftriaxone day#3. Day #5 Azithromycin 12/02/18: Ceftriaxone day#2. Day #4 Ceftriaxone 12/01/18: Day #3 Azithromycin. Added on Ceftriaxone due to elevated WBC. Can consider changing to quinolone due to poor progression and improvement. 11/29: Day 2 of azithromycin. Continue IV solumedrol. WBC still WNL at 7 but is climbing up. However, patient is on steroid. Has remained afebrile overnight. 11/28: Respiratory Panel was (+) for Mycoplasma Pneumoniae Pneumonia. Patient was originally started on ceftriaxone and azithromycin. Have d/ce'd the ceftriaxone and kept azithromycin for atypical organism coverage. Will continue to trend WBC and CBC. WBC astonishingly is WNL at 6.7 today. Continue O2 supplementation and nebulizer treatments. In addition, have added 40 mg IV solumedrol qdaily x 5 days. (3) Pleural effusion Status: Acute Problem Text: 12/04/18: Continue monitoring strict I's/O's and 1500 mL fluid restriction. Was 1020 mL in yesterday and 1700 mL out yesterday with a net negative diuresis of (-)680 mL. No crackles and no signs of fluid overload on exam today. Continue to monitor clinically. 12/02/18: volume overload noted in in-patient setting. Given lasix 40 mg IV x 1 yesterday. will give additional today. strict I/O and 1500 ml fluid restriction. (4) Microcytic anemia Status: Acute Problem Text: 12/04/18: Hgb 11.8 (L) and MCV 78.2 (L). Hgb is stable. Continue to monitor CBC. Likely anemia of chronic disease with iron deficiency anemia as well from workup as mentioned below. Will consider iron supplementation. Although, currently, patient is constipated so will hold off on that. 11/29: Hgb was 10 (L), MCV was 77 (L), RDW was 17.2 (H), Retic # 59.9 WNL, Retic Hgb Equivalent 23.2(L), iron 45 (L), TIBC 244 (L), transferrin 202 WNL, transferrin % saturation 18.4 WNL, ferritin 105 WNL. Vitamin B12 545 WNL, and Folate 22.6 WNL. Anemia workup reveals etiology to be likely either: anemia of chronic disease and some additional iron deficiency anemia. If patient's ethnicity is Mediterranean origin, then thalassemia workup could be considered. 11/28: Has microcytic anemia on exams with Hgb 10.3 and MCV 77.9. RDW was high at 17.0 (H). Will order iron studies, vitamin B12, and folate to evaluate etiology of anemia. (5) Diabetes mellitus type 2 in obese Status: Chronic Problem Text: 12/04/18: Blood sugars have been elevated with prednisone. Will continue ISS coverage with humalog. However, currently only on 5 units detemir. Is requiring 40 units of sliding scale coverage thus far daily. So, I will plan on increasing patient's detemir to either 10-15 units after talking to attending physician. Continue to monitor FS. 12/02/18: blood sugars have been elevated with steroids. Continue with sliding scale and monitoring. 11/29: Serum glucose was 175 (H) and FS was 238 (H). Patient required 10 units sliding scale coverage yesterday. Will start patient on basal insulin at half th at dose: detemir 5 units today. Still on ISS coverage at and QHS. 11/28: Patient's last HgbA1C was 7.7 on 10/02/18. Patient was started on her home regimen of metformin 1000 mg BID and glipizide. However, due to patient's risk of going into renal failure during hospitalization with acute infection, will stop metformin for now. In addition, will hold glipizide for now. Will start sliding scale coverage with FS checks at and QHS. Will adjust therapy as necessary. (6) Grade I diastolic dysfunction Status: Chronic Problem Text: 12/04/18: No signs of fluid overload on exam today. Continue 1500 mL fluid restriction and strict I/O monitoring. 12/02/18: volume overload noted in in-patient setting. Given lasix 40 mg IV x 1 yesterday. will give additional today. strict I/O and 1500 ml fluid restriction. 11/28: According to [facility] records on outpatient EMR, patient had Echocardiogram on 08/2018 that showed normal LV internal dimensions and wall thickness, hyperdynamic LV systolic function LVEF 80%, mild dynamic LVOT obstructive gradient, Grade I LV diastolic dysfunction, mild L atrial dilitation, structurally and functioning normal aortic valve, no aortic stenosis, mild dilitation of the aortic root at the level of the sinuses Valsalva, normal diameter of the proximal ascending aorta, no coarctation of the aorta, moder ately technically difficult echocardiogram. Will monitor patient clinically for any signs of heart failure. Her BNP was mildly elevated at 415 (H). Troponin I was <0.02. Total CK was 467 (H), CK-MB: 3 (N), CK-MB relative index was 0.56 (N). EKG done in the ED had shown: sinus rhythm, rate of 80, normal axis, QRS duration 90 ms, QTc interval 408 ms, subtle ST elevation inferiorly, lateral T wave inversion, consider ischemia, no priors for comparison. (7) Endometrial carcinoma Status: Chronic Problem Text: 11/28: Dx 2011, Stage 1B, grade 2, follows with Dr. Barrett in [place]. (8) GERD (gastroesophageal reflux disease) Status: Chronic Problem Text: 11/28: Continue omeprazole 40 mg daily. (9) Elevated liver enzymes Status: Acute Problem Text: 12/04/18: Alk phos trending down and was 118 (H) today. AST and ALT have normalized and remained normal throughout hospitalization. 11/29: Liver function tests and enzymes are normalizing and going down. AST was 29 WNL, ALT was 66 WNL, and alk phos has gone down to 151 (H) which was previously 189 (H). Will continue to monitor CMP. 11/28: Of note, patient's AST was 62 (H), ALT was 86 (H), alk phos 189 (H). Liver enzymes were previously normal. Will continue to trend CMP and see if needs further evaluation. (10) Cervical spondylosis without myelopathy Status: Chronic Problem Text: 11/28: Monitor for now. No pain medication ordered. Consider K- pad if needed. LFTs were elevated on labs today. Thus, I do not wish to give her tylenol nor NSAIDs at this time. (11) Hyperlipidemia Status: Chronic Problem Text: 11/28: Continue aspirin 81 mg daily and simvastatin 10 mg QHS. Plan/VTE VTE Prophylaxis Ordered?: Yes (Enoxaparin 40 mg SC daily) VS, I&O, 24H, Fishbone Vital Signs/I&O Vital Signs Date Time Temp Pulse Resp B/P (MAP) Pulse Ox O2 Delivery O2 Flow Rate FiO2 12/04/18 09:10 2.0 12/04/18 07:43 136/72 12/04/18 06:00 98.5 69 22 93 Nasal Cannula 11/28/18 14:27 50 I&O- Last 24 Hours up to 6 AM 12/04/18 06:00 Intake Total 1080 ml Output Total 1750 ml Balance -670 ml Laboratory Data 24H LABS Laboratory Tests 2 12/03/18 11:31: Bedside Glucose (Misc Panel) 376H 12/03/18 17:26: Bedside Glucose (Misc Panel) 376H 12/03/18 20:30: Bedside Glucose (Misc Panel) 387H 12/04/18 05:34: Immature Granulocyte % (Auto) , Nucleated Red Blood Cells % (auto) 0.0, Neutrophils 66, Band Neutrophils 1, Lymphocytes (Manual) 22, Monocytes (Manual) 4, Eosinophils (Manual) 3, Metamyelocytes 2H, Myelocytes 2H, Platelet Estimate N ORMAL, Anisocytosis 1+, Microcytosis 1+, Ovalocytes 1+, Anion Gap 8, Glomerular Filtration Rate > 60.0, Blood Urea Nitrogen 22H, Creatinine 0.79, Sodium Level 140, Potassium Level 3.7, Chloride Level 101, Carbon Dioxide Level 31, Calcium Level 9.0, Aspartate Amino Transf (AST/SGOT) 13, Alanine Aminotransferase (ALT/SGPT) 60, Alkaline Phosphatase 118H, Total Bilirubin 0.4, Total Protein 6.7, Albumin 2.6L, Albumin/Globulin Ratio 0.63L CBC/BMP Laboratory Tests 12/04/18 05:34 Red Blood Count 4.96, Mean Corpuscular Volume 78.2 L, Mean Corpuscular Hemoglobin 23.8 L, Mean Corpuscular Hemoglobin Concent 30.4 L, Red Cell Distribution Width 17.1 H, Calcium Level 9.0, Aspartate Amino Transf (AST/SGOT) 13, Alanine Aminotransferase (ALT/SGPT) 60, Alkaline Phosphatase 118 H, Total B ilirubin 0.4, Total Protein 6.7, Albumin 2.6 L Microbiology Microbiology 11/27/18 Blood Culture - Final, Complete NO GROWTH AFTER 5 DAYS 11/27/18 Blood Culture - Final, Complete NO GROWTH AFTER 5 DAYS 11/27/18 Respiratory Virus Panel (PCR) ([facility]) - Final, Complete Mycoplasma Pneumoniae GME ATTESTATION GME ATTESTATION My faculty preceptor for this patient encounter was Dr. Nadya Castro, and was physically present during the encounter and was fully available. All aspects of the patient interview, examination, medical decision making process, and medical care plan development were reviewed and approved by the faculty preceptor. The faculty preceptor is aware and concurs with the plan as stated in the body of this note and will attest to such by his/her cosignature. ROYAL FRYE DO Dec 04, 2018 10:59
[2018-12-04] MEDS: guaiFENesin DM LIQ 10ML UD PO SCH ×4 (11:58→21:11)
[2018-12-04 14:00] VITALS: BP 104/58
[2018-12-04] MEDS: ENOXAPARIN 40 MG/0.4 ML SYRINGE (J1650) SC SCH (17:40)
[2018-12-04] MEDS ORDERED: guaiFENesin ER 600 MG TAB PO SCH (21:00)
[2018-12-04] MEDS: SIMVASTATIN 10 MG TAB PO SCH (21:11)
[2018-12-04] MEDS: LEVEMIR (INSULIN DETEMIR) 1 UNITS/0.01ML SC SCH (21:12)
[2018-12-04] MEDS: AZITHROMYCIN INJ 500 MG, VIAL MATE ADAPTER 1 EACH in D5W 250 ML IV SCH (21:12)
[2018-12-04 22:00] VITALS: BP 123/58
[2018-12-05] MEDS: guaiFENesin DM LIQ 10ML UD PO SCH ×6 (01:49→21:34)
[2018-12-05] MEDS: IPRATROPIUM 0.5MG/ALBUTEROL 2.5MG INH SOL UD 3ML (DUONEB)(J7620) NEB SCH ×4 (02:00→19:29)
[2018-12-05 05:57] LABS: BASO % 0.1 % (0.0-1.0); EOS # 0.3 10^3/uL (0.0-0.50); EOS % 3.8 % (0.0-3.0); HEMATOCRIT 37.8 % (36.0-47.0); HEMOGLOBIN 11.4 g/dl (12.0-15.5); LYMPH # 2.3 10^3/uL (1.5-4.5); LYMPH % 29.2 % (24.0-44.0); MEAN CORPUSCULAR HEMOGLOBIN 23.5 pg (27.0-33.0); MEAN CORPUSCULAR HGB CONC 30.2 g/dl (32.0-36.5); MEAN CORPUSCULAR VOLUME 77.8 fl (80.0-96.0); MONO # 0.6 10^3/uL (0.0-0.8); MONO % 7.6 % (0.0-5.0); NEUTROPHILS # 4.5 10^3/uL (1.8-7.7); NEUTROPHILS % 56.6 % (36.0-66.0); PLATELET COUNT, AUTOMATED 397 10^3/uL (150-450); RED BLOOD COUNT 4.86 10^6/uL (4.00-5.40); WHITE BLOOD COUNT 7.9 10^3/uL (4.0-10.0)
[2018-12-05 06:00] VITALS: BP 132/61
[2018-12-05 06:28] LABS: ALBUMIN 2.6 GM/DL (3.2-5.2); ALT/SGPT 54 U/L (12-78); BILIRUBIN,TOTAL 0.5 MG/DL (0.2-1.0); BLOOD UREA NITROGEN 19 MG/DL (7-18); CALCIUM LEVEL 8.8 MG/DL (8.8-10.2); CARBON DIOXIDE LEVEL 29 MEQ/L (21-32); CHLORIDE LEVEL 103 MEQ/L (98-107); CREATININE FOR GFR 0.76 MG/DL (0.55-1.30); GLOMERULAR FILTRATION RATE > 60.0 (>45); GLUCOSE, FASTING 173 MG/DL (70-100); POTASSIUM SERUM 3.8 MEQ/L (3.5-5.1); SODIUM LEVEL 140 MEQ/L (136-145); TOTAL PROTEIN 6.6 GM/DL (6.4-8.2)
[2018-12-05] MEDS: LACTOBACILLUS ACIDOPHILUS CAP (BACID) PO SCH ×3 (08:03→17:01)
[2018-12-05] MEDS: LISINOPRIL 20 MG TAB PO SCH (08:03)
[2018-12-05] MEDS: OMEPRAZOLE 20 MG CAP PO SCH (08:03)
[2018-12-05] MEDS: HumaLOG INSULIN (NovoLOG) PER UNIT SC SCH ×4 (08:04→21:34)
[2018-12-05] MEDS: predniSONE 20 MG TAB PO SCH (08:04)
[2018-12-05] MEDS: MULTIVITAMINS/MINERALS THERAP 1 TAB PO SCH (08:04)
[2018-12-05] MEDS: ASPIRIN 81 MG ENTERIC TAB PO SCH (08:04)
[2018-12-05] MEDS: cefTRIAXone SOD 2 GM in D5W MINI-BAG PLUS 50 ML IV SCH (10:45)
[2018-12-05 14:00] VITALS: BP 119/58
[2018-12-05] MEDS: ENOXAPARIN 40 MG/0.4 ML SYRINGE (J1650) SC SCH (17:01)
[2018-12-05] MEDS: CEFDINIR 300 MG CAP (OMNICEF) PO SCH (21:34)
[2018-12-05] MEDS: SIMVASTATIN 10 MG TAB PO SCH (21:34)
[2018-12-05] MEDS: LEVEMIR (INSULIN DETEMIR) 1 UNITS/0.01ML SC SCH (21:35)
[2018-12-05 22:00] VITALS: BP 118/58
[2018-12-06] MEDS: guaiFENesin DM LIQ 10ML UD PO SCH ×5 (01:42→21:47)
[2018-12-06] MEDS: IPRATROPIUM 0.5MG/ALBUTEROL 2.5MG INH SOL UD 3ML (DUONEB)(J7620) NEB SCH ×4 (02:35→20:00)
[2018-12-06 06:00] VITALS: BP 113/72
[2018-12-06] MEDS: HumaLOG INSULIN (NovoLOG) PER UNIT SC SCH ×4 (07:30→21:48)
[2018-12-06] MEDS: LACTOBACILLUS ACIDOPHILUS CAP (BACID) PO SCH ×3 (08:35→17:58)
[2018-12-06] MEDS: OMEPRAZOLE 20 MG CAP PO SCH (08:35)
[2018-12-06] MEDS: CEFDINIR 300 MG CAP (OMNICEF) PO SCH ×2 (08:35→21:47)
[2018-12-06] MEDS: ASPIRIN 81 MG ENTERIC TAB PO SCH (08:36)
[2018-12-06] MEDS: LISINOPRIL 20 MG TAB PO SCH (08:36)
[2018-12-06] MEDS: predniSONE 20 MG TAB PO SCH (08:36)
[2018-12-06] MEDS: FERROUS SULFATE 325MG TAB PO SCH (09:00)
[2018-12-06] MEDS: MULTIVITAMINS/MINERALS THERAP 1 TAB PO SCH (10:51)
--- NOTE | 2018-12-06 12:42 | IPNPDOC ---
Subjective Date Seen The patient was seen on 12/05/18. Subjective Chief Complaint/HPI Patient seen and examined at bedside. States she has been better. SOB is mainly exertional. Feels very fatigued. General: Reports: Normal Appetite Constitutional: Denies: Chills, Fever Pulmonary: Reports: Dyspnea (on exertion), Cough Cardiovascular: Denies: Chest Pain Gastrointestinal: Denies: Nausea, Vomiting, Abdominal Pain, Diarrhea, Constipation Endocrine: Denies: Heat Intolerance, Cold Intolerance Musculoskeletal: Denies: Joint Pain, Muscle Pain Neurological: Denies: Confusion Psych: Reports: Mood Normal Objective Physical Examination General Exam: Positive: Alert, Cooperative, Mild Distress, Other (appears less fatigued today than prior, still tachypneic) Eye Exam: Positive: Conjunctiva & lids normal; Negative: Sclera icteric ENT Exam: Positive: Atraumatic Neck Exam: Positive: Supple Chest Exam: Positive: Rhonchi (scattered and mainly in R lower lung pepper. Much improved from prior.); Negative: Clear to auscultation, Rales, Wheezing Heart Exam: Positive: Rate Normal, Regular Rhythm, Normal S1, Normal S2; Negative: Murmurs Abdomen Exam: Positive: Normal bowel sounds, Soft, Other (morbidly obese); Negative: Tenderness Extremity Exam: Negative: Clubbing, Cyanosis, Edema Skin Exam: Positive: Nl turgor and temperature; Negative: Rash Neuro Exam: Positive: Normal Speech Psych Exam: Positive: Mental status NL, Mood NL, Oriented x 3 Assessment /Plan Problems (1) Acute respiratory failure with hypoxia Status: Acute Problem Text: 12/05/18: Improving slowly but surely. O2 weaned down to 2 liters nasal cannula. Antibiotics will be transitioned over to cefdinir 300 mg PO BID. IV azithromycin and rocephin will be d/ce'd today. Continue current regimen of prednisone 60 mg daily for one more day, duonebs, oxygen therapy to maintain saturations >90%. Continue 1500 mL fluid restriction. Will taper prednisone tomorrow for sure. 12/04/18: Gradually improving. Has been weaned down to 3 liters nasal cannula. Repeat CXR yesterday showed: persistent consolidation RLL consistent with pneumonia. Working with PT and was cleared by PT yesterday. Continue current regimen: prednisone 60 mg PO daily, duonebs, humidified oxygen. Have also added guaifenesin/dextromethorphan to be q4h routine instead of PRN. Will continue 1500 mL fluid restriction to avoid fluid overload/pleural effusions. Will plan to start tapering prednisone tomorrow. 12/03/18: Slow improvement. repeat CXR today. Continue current medication regimen. PT ordered. 12/02/18: Improvement with increase in solumedrol, lasix and duonebs. Will cut solumedrol down to prednisone 60 mg po daily. Furosemide 40 mg x 1 again today. Will give fluid restriction until properly diuresed. Patient agreeable and showing improvement in condition. 12/01/18: poor tolerance to weaning off of Venti mask. Repeat CXR today. added on Ceftriaxone for abx coverage. Solumedrol 80 mg IV q 8 hrs. Duonebs q 6hrs. Continue to attempt weaning down on oxygen. 11/29: Satting 95% on 15 L/min Venturi Mask. Not on FiO2. Lowest O2 saturation on 11/28 was: 84% at 7:15 AM and 87% at 2200. Continue to maintain O2 saturations above 90% with O2 therapy. Continue albuterol neb tx. Continue to monitor pulse oximetry for any desaturation events. Treat underlying cause: Mycoplasma Pneumoniae Pneumonia with Azithromycin. 11/28: Satting 92% on 15 L/min Venturi Mask and FiO2 50%. Lowest O2 saturation was 86% on 11/27. Overnight, patient did desat down to 87% on 11/28 early this AM. Patient has hypoxic respiratory failure likely secondary to Mycoplasma Pneumoniae Pneumonia as evidenced by Respiratory Panel results. Will continue current management and try to maintain O2 saturations above 90%. Have also ordered albuterol nebulizer treatments RQ6H and Q2H PRN. (2) Community acquired pneumonia due to Mycoplasma pneumoniae Status: Acute Problem Text: 12/05/18: Day #5 of Ceftriaxone and Day #7 of Azithromycin. Will d/c today and switch over to cefdinir 300 mg PO BID. WBC still WNL at 7.9 today. Patient clinically improving. O2 weaned down to 2 liters. Continue O2 therapy and duonebs. 12/04/18: Day #4 of Ceftriaxone and Day #6 of Azithromycin. WBC is WNL at 7.4 and has normalized since December 01. Patient is clinically improving. Oxygen has been weaned down to 3 liters. Continue antibiotics and duonebs. 12/03/18: 12/02/17: Ceftriaxone day#3. Day #5 Azithromycin 12/02/18: Ceftriaxone day#2. Day #4 Ceftriaxone 12/01/18: Day #3 Azithromycin. Added on Ceftriaxone due to elevated WBC. Can consider changing to quinolone due to poor progression and improvement. 11/29: Day 2 of azithromycin. Continue IV solumedrol. WBC still WNL at 7 but is climbing up. However, patient is on steroid. Has remained afebrile overnight. 11/28: Respiratory Panel was (+) for Mycoplasma Pneumoniae Pneumonia. Patient was originally started on ceftriaxone and azithromycin. Have d/ce'd the ceftriax one and kept azithromycin for atypical organism coverage. Will continue to trend WBC and CBC. WBC astonishingly is WNL at 6.7 today. Continue O2 supplementation and nebulizer treatments. In addition, have added 40 mg IV solumedrol qdaily x 5 days. (3) Pleural effusion Status: Acute Problem Text: 12/05/18: No crackles or signs of fluid overload noted on exam today. Continue strict I/O and 1500 mL fluid restriction. Had net negative diuresis of (-)810 mL yesterday. 12/04/18: Continue monitoring strict I's/O's and 1500 mL fluid restriction. Was 1020 mL in yesterday and 1700 mL out yesterday with a net negative diuresis of (-)680 mL. No crackles and no signs of fluid overload on exam today. Continue to monitor clinically. 12/02/18: volume overload noted in in-patient setting. Given lasix 40 mg IV x 1 yesterday. will give additional today. strict I/O and 1500 ml fluid restriction. (4) Microcytic anemia Status: Acute Problem Text: 12/05/18: Hgb 11.4 (L) and MCV 77.8 (L). Stable. Continue to monitor CBC. See below for workup. Will start ferrous sulfate 325 mg every other day. 12/04/18: Hgb 11.8 (L) and MCV 78.2 (L). Hgb is stable. Continue to monitor CBC. Likely anemia of chronic disease with iron deficiency anemia as well from workup as mentioned below. Will consider iron supplementation. Although, currently, patient is constipated so will hold off on that. 11/29: Hgb was 10 (L), MCV was 77 (L), RDW was 17.2 (H), Retic # 59.9 WNL, Retic Hgb Equivalent 23.2(L), iron 45 (L), TIBC 244 (L), transferrin 202 WNL, tra nsferrin % saturation 18.4 WNL, ferritin 105 WNL. Vitamin B12 545 WNL, and Folate 22.6 WNL. Anemia workup reveals etiology to be likely either: anemia of chronic disease and some additional iron deficiency anemia. If patient's ethnicity is Mediterranean origin, then thalassemia workup could be considered. 11/28: Has microcytic anemia on exams with Hgb 10.3 and MCV 77.9. RDW was high at 17.0 (H). Will order iron studies, vitamin B12, and folate to evaluate etiology of anemia. (5) Diabetes mellitus type 2 in obese Status: Chronic Problem Text: 12/05/18: Blood sugars slightly improved today with increase in detemir to 10 units QHS. Serum glucose was 173 (H) today and was 281 (H) yesterday. However, FS still in the 300s-400s. Will continue to monitor. Plan on adjusting detemir again tomorrow. 12/04/18: Blood sugars have been elevated with prednisone. Will continue ISS coverage with humalog. However, currently only on 5 units detemir. Is requiring 40 units of sliding scale coverage thus far daily. So, I will plan on increasing patient's detemir to either 10-15 units after talking to attending physician. Continue to monitor FS. 12/02/18: blood sugars have been elevated with steroids. Continue with sliding scale and monitoring. 11/29: Serum glucose was 175 (H) and FS was 238 (H). Patient required 10 units sliding scale coverage yesterday. Will start patient on basal insulin at half that dose: detemir 5 units today. Still on ISS coverage at and QHS. 11/28: Patient's last HgbA1C was 7.7 on 10/02/18. Patient was started on her home regimen of metformin 1000 mg BID and glipizide. However, due to patient's risk of going into renal failure during hospitalization with acute infection, will stop metformin for now. In addition, will hold glipizide for now. Will start sliding scale coverage with FS checks at and [facility]. Will adjust therapy as necessary. (6) Grade I diastolic dysfunction Status: Chronic Problem Text: 12/05/18: No signs of fluid overload on exam today. Compensated. Continue with fluid restriction and strict I/O monitoring. 12/04/18: No signs of fluid overload on exam today. Continue 1500 mL fluid restriction and strict I/O monitoring. 12/02/18: volume overload noted in in-patient setting. Given lasix 40 mg IV x 1 yesterday. will give additional today. strict I/O and 1500 ml fluid restriction. 11/28: According to [facility] records on outpatient EMR, patient had Echocardiogram on 08/2018 that showed normal LV internal dimensions and wall thickness, hyperdynamic LV systolic function LVEF 80%, mild dynamic LVOT obstructive gradient, Grade I LV diastolic dysfunction, mild L atrial dilitation, structurally and functioning normal aortic valve, no aortic stenosis, mild dilitation of the aortic root at the level of the sinuses Valsalva, normal diameter of the proximal ascending aorta, no coarctation of the aorta, moderately technically difficult echocardiogram. Will monitor patient clinically for any signs of heart failure. Her BNP was mildly elevated at 415 (H). Troponin I was <0.02. Total CK was 467 (H), CK-MB: 3 (N), CK-MB relative index was 0.56 (N). EKG done in the ED had shown: sinus rhythm, rate of 80, normal axis, QRS duration 90 ms, QTc interval 408 ms, subtle ST elevation inferiorly, lateral T wave inversion, consider ischemia, no priors for comparison. (7) Endometrial carcinoma Status: Chronic Problem Text: 11/28: Dx 2011, Stage 1B, grade 2, follows with Dr. Barrett in [place]. (8) GERD (gastroesophageal reflux disease) Status: Chronic Problem Text: 11/28: Continue omeprazole 40 mg daily. (9) Elevated liver enzymes Status: Acute Problem Text: 12/05/18: Alk phos WNL today at 112. Continue to monitor. 12/04/18: Alk phos trending down and was 118 (H) today. AST and ALT have normalized and remained normal throughout hospitalization. 11/29: Liver function tests and enzymes are normalizing and going down. AST was 29 WNL, ALT was 66 WNL, and alk phos has gone down to 151 (H) which was previously 189 (H). Will continue to monitor CMP. 11/28: Of note, patient's AST was 62 (H), ALT was 86 (H), alk phos 189 (H). Liver enzymes were previously normal. Will continue to trend CMP and see if needs further evaluation. (10) Cervical spondylosis without myelopathy Status: Chronic Problem Text: 11/28: Monitor for now. No pain medication ordered. Consider K- pad if needed. LFTs were elevated on labs today. Thus, I do not wish to give her tylenol nor NSAIDs at this time. (11) Hyperlipidemia Status: Chronic Problem Text: 11/28: Continue aspirin 81 mg daily and simvastatin 10 mg QHS. Plan/VTE VTE Prophylaxis Ordered?: Yes (Enoxaparin 40 mg SC daily) VS, I&O, 24H, Fishbone Vital Signs/I&O Vital Signs Date Time Temp Pulse Resp B/P (MAP) Pulse Ox O2 Delivery O2 Flow Rate FiO2 12/06/18 08:36 113/72 12/06/18 06:00 96.4 60 22 96 Nasal Cannula 2.0 I&O- Last 24 Hours up to 6 AM 12/06/18 05:59 Intake Total 1140 ml Output Total 1950 ml Balance -810 ml Laboratory Data 24H LABS Laboratory Tests 2 12/05/18 16:21: Bedside Glucose (Misc Panel) 449H 12/05/18 20:43: Bedside Glucose (Misc Panel) 339H 12/06/18 07:19: Bedside Glucose (Misc Panel) 196H 12/06/18 11:46: Bedside Glucose (Misc Panel) 307H Microbiology Microbiology 11/27/18 Blood Culture - Final, Complete NO GROWTH AFTER 5 DAYS 11/27/18 Blood Culture - Final, Complete NO GROWTH AFTER 5 DAYS 11/27/18 Respiratory Virus Panel (PCR) ([facility]) - Final, Complete Mycoplasma Pneumoniae GME ATTESTATION GME ATTESTATION My faculty preceptor for this patient encounter was Dr. Nadya Castro, and was physically present during the encounter and was fully available. All aspects of the patient interview, examination, medical decision making process, and medical care plan development were reviewed and approved by the faculty preceptor. The faculty preceptor is aware and concurs with the plan as stated in the body of this note and will attest to such by his/her cosignature. ROYAL FRYE DO Dec 06, 2018 12:42
[2018-12-06 12:57] LABS: BASO % 0.2 % (0.0-1.0); EOS # 0.1 10^3/uL (0.0-0.50); EOS % 1.4 % (0.0-3.0); HEMATOCRIT 39.6 % (36.0-47.0); HEMOGLOBIN 11.9 g/dl (12.0-15.5); LYMPH # 0.7 10^3/uL (1.5-4.5); LYMPH % 8.9 % (24.0-44.0); MEAN CORPUSCULAR HEMOGLOBIN 23.7 pg (27.0-33.0); MEAN CORPUSCULAR HGB CONC 30.1 g/dl (32.0-36.5); MEAN CORPUSCULAR VOLUME 78.7 fl (80.0-96.0); MONO # 0.3 10^3/uL (0.0-0.8); MONO % 3.1 % (0.0-5.0); NEUTROPHILS # 7.1 10^3/uL (1.8-7.7); NEUTROPHILS % 84.7 % (36.0-66.0); PLATELET COUNT, AUTOMATED 311 10^3/uL (150-450); RED BLOOD COUNT 5.03 10^6/uL (4.00-5.40); WHITE BLOOD COUNT 8.4 10^3/uL (4.0-10.0)
--- NOTE | 2018-12-06 13:01 | IPNPDOC ---
Subjective Date Seen The patient was seen on 12/06/18. Subjective Chief Complaint/HPI Patient seen and examined at bedside. States SOB is a little better today. Is a little less fatigued today. Would like to shower if possible. Denies any other acute complaints. Passed 1 BM yesterday. General: Reports: Normal Appetite Constitutional: Denies: Chills, Fever ENT: Denies: Head Aches Skin: Denies: Rash Pulmonary: Reports: Dyspnea (on exertion), Cough Cardiovascular: Denies: Chest Pain Gastrointestinal: Denies: Nausea, Vomiting, Abdominal Pain, Diarrhea, Constipation Genitourinary: Denies: Dysuria Endocrine: Denies: Heat Intolerance, Cold Intolerance Musculoskeletal: Denies: Joint Pain, Muscle Pain Neurological: Denies: Weakness, Confusion Psych: Reports: Mood Normal Objective Physical Examination General Exam: Positive: Alert, Cooperative, Mild Distress, Other (appears less fatigued today than prior, still tachypneic) Eye Exam: Positive: Conjunctiva & lids normal; Negative: Sclera icteric ENT Exam: Positive: Atraumatic Neck Exam: Positive: Supple Chest Exam: Positive: Normal air movement, Rhonchi (mild and scattered, difficult to appreciate, mainly clear); Negative: Rales, Wheezing Heart Exam: Positive: Rate Normal, Regular Rhythm, Normal S1, Normal S2; Negative: Murmurs Abdomen Exam: Positive: Normal bowel sounds, Soft, Other (morbidly obese); Negative: Tenderness, Hepatospenomegaly Extremity Exam: Negative: Clubbing, Cyanosis, Edema Skin Exam: Negative: Rash Psych Exam: Positive: Mental status NL, Mood NL, Oriented x 3 Assessment /Plan Problems (1) Acute respiratory failure with hypoxia Status: Acute Problem Text: 12/06/18: Improving. Still requiring 2 liters nasal cannula O2. Continue cefdinir 300 mg PO BID. Labs from 12/06 not available as of yet. Have reordered them. Will recheck WBC. Will taper prednisone down from 60 mg to 50 mg daily. Continue duonebs and oxygen therapy to maintain sats >90%. 12/04/18: Gradually improving. Has been weaned down to 3 liters nasal cannula. Repeat CXR yesterday showed: persistent consolidation RLL consistent with pneumonia. Working with PT and was cleared by PT yesterday. Continue current regimen: prednisone 60 mg PO daily, duonebs, humidified oxygen. Have also added guaifenesin/dextromethorphan to be q4h routine instead of PRN. Will continue 1500 mL fluid restriction to avoid fluid overload/pleural effusions. Will plan to start tapering prednisone tomorrow. 12/03/18: Slow improvement. repeat CXR today. Continue current medication regimen. PT ordered. 12/02/18: Improvement with increase in solumedrol, lasix and duonebs. Will cut solumedrol down to prednisone 60 mg po daily. Furosemide 40 mg x 1 again today. Will give fluid restriction until properly diuresed. Patient agreeable and showing improvement in condition. 12/01/18: poor tolerance to weaning off of Venti mask. Repeat CXR today. added on Ceftriaxone for abx coverage. Solumedrol 80 mg IV q 8 hrs. Duonebs q 6hrs. Continue to attempt weaning down on oxygen. 11/29: Satting 95% on 15 L/min Venturi Mask. Not on FiO2. Lowest O2 saturation on 11/28 was: 84% at 7:15 AM and 87% at 2200. Continue to maintain O2 saturations above 90% with O2 therapy. Continue albuterol neb tx. Continue to monitor pulse oximetry for any desaturation events. Treat underlying cause: Mycoplasma Pneumoniae Pneumonia with Azithromycin. 11/28: Satting 92% on 15 L/min Venturi Mask and FiO2 50%. Lowest O2 saturation was 86% on 11/27. Overnight, patient did desat down to 87% on 11/28 early this AM. Patient has hypoxic respiratory failure likely secondary to Mycoplasma Pneumoniae Pneumonia as evidenced by Respiratory Panel results. Will continue current management and try to maintain O2 saturations above 90%. Have also ordered albuterol nebulizer treatments RQ6H and Q2H PRN. (2) Community acquired pneumonia due to Mycoplasma pneumoniae Status: Acute Problem Text: 12/06/18: Day #1 of Cefdinir 300 mg PO BID. Still awaiting CBC results. Patient clinically improving. O2 weaned down to 2 liters, but will work on weaning down more today. Continue duonebs and O2 therapy. 12/04/18: Day #4 of Ceftriaxone and Day #6 of Azithromycin. WBC is WNL at 7.4 and has normalized since December 01. Patient is clinically improving. Oxygen has been weaned down to 3 liters. Continue antibiotics and duonebs. 12/03/18: 12/02/17: Ceftriaxone day#3. Day #5 Azithromycin 12/02/18: Ceftriaxone day#2. Day #4 Ceftriaxone 12/01/18: Day #3 Azithromycin. Added on Ceftriaxone due to elevated WBC. Can consider changing to quinolone due to poor progression and improvement. 11/29: Day 2 of azithromycin. Continue IV solumedrol. WBC still WNL at 7 but is climbing up. However, patient is on steroid. Has remained afebrile overnight. 11/28: Respiratory Panel was (+) for Mycoplasma Pneumoniae Pneumonia. Patient was originally started on ceftriaxone and azithromycin. Have d/ce'd the ceftr iaxone and kept azithromycin for atypical organism coverage. Will continue to trend WBC and CBC. WBC astonishingly is WNL at 6.7 today. Continue O2 supplementation and nebulizer treatments. In addition, have added 40 mg IV solumedrol qdaily x 5 days. (3) Pleural effusion Status: Acute Problem Text: 12/06/18: Continue with strict I/O's and 1500 mL fluid restriction. Had net negative diuresis of (-)510 mL yesterday. No signs of fluid overload on exam. Continue to monitor clinically. 12/04/18: Continue monitoring strict I's/O's and 1500 mL fluid restriction. Was 1020 mL in yesterday and 1700 mL out yesterday with a net negative diuresis of (-)680 mL. No crackles and no signs of fluid overload on exam today. Continue to monitor clinically. 12/02/18: volume overload noted in in-patient setting. Given lasix 40 mg IV x 1 yesterday. will give additional today. strict I/O and 1500 ml fluid restriction. (4) Microcytic anemia Status: Acute Problem Text: 12/06/18: CBC pending still. Have started patient on ferrous brandon lfate 325 mg PO every other day for likely iron deficiency in addition to her anemia of chronic disease. 12/04/18: Hgb 11.8 (L) and MCV 78.2 (L). Hgb is stable. Continue to monitor CBC. Likely anemia of chronic disease with iron deficiency anemia as well from workup as mentioned below. Will consider iron supplementation. Although, currently, patient is constipated so will hold off on that. 11/29: Hgb was 10 (L), MCV was 77 (L), RDW was 17.2 (H), Retic # 59.9 WNL, Retic Hgb Equivalent 23.2(L), iron 45 (L), TIBC 244 (L), transferrin 202 WNL, transferrin % saturation 18.4 WNL, ferritin 105 WNL. Vitamin B12 545 WNL, and Folate 22.6 WNL. Anemia workup reveals etiology to be likely either: anemia of chronic disease and some additional iron deficiency anemia. If patient's ethnicity is Mediterranean origin, then thalassemia workup could be considered. 11/28: Has microcytic anemia on exams with Hgb 10.3 and MCV 77.9. RDW was high at 17.0 (H). Will order iron studies, vitamin B12, and folate to evaluate etiology of anemia. (5) Diabetes mellitus type 2 in obese Status: Chronic Problem Text: 12/06/18: CMP pending for today and will recheck serum glucose. FS still running a bit high at 196 (H) at 07:19 and 307 (H) at 11:46. Will increase detemir to 12 units today. Continue ISS with humalog at and [facility]. Continue to monitor FS for further adjustments. 12/04/18: Blood sugars have been elevated with prednisone. Will continue ISS coverage with humalog. However, currently only on 5 units detemir. Is requiring 40 units of sliding scale coverage thus far daily. So, I will plan on increasing patient's detemir to either 10-15 units after talking to attending physician. Continue to monitor FS. 12/02/18: blood sugars have been elevated with steroids. Continue with sliding scale and monitoring. 11/29: Serum glucose was 175 (H) and FS was 238 (H). Patient required 10 units sliding scale coverage yesterday. Will start patient on basal insulin at half that dose: detemir 5 units today. Still on ISS coverage at and [facility]. 11/28: Patient's last HgbA1C was 7.7 on 10/02/18. Patient was started on her home regimen of metformin 1000 mg BID and glipizide. However, due to patient's risk of going into renal failure during hospitalization with acute infection, will stop metformin for now. In addition, will hold glipizide for now. Will start sliding scale coverage with FS checks at and [facility]. Will adjust therapy as necessary. (6) Grade I diastolic dysfunction Status: Chronic Problem Text: 12/06/18: Appears well compensated. No clinical signs of fluid overload on exam. Continue fluid restriction and I/O monitoring. 12/04/18: No signs of fluid overload on exam today. Continue 1500 mL fluid restriction and strict I/O monitoring. 12/02/18: volume overload noted in in-patient setting. Given lasix 40 mg IV x 1 yesterday. will give additional today. strict I/O and 1500 ml fluid restriction. 11/28: According to [facility] records on outpatient EMR, patient had Echocardiogram on 08/2018 that showed normal LV internal dimensions and wall thickness, hyperdyn amic LV systolic function LVEF 80%, mild dynamic LVOT obstructive gradient, Grade I LV diastolic dysfunction, mild L atrial dilitation, structurally and functioning normal aortic valve, no aortic stenosis, mild dilitation of the aortic root at the level of the sinuses Valsalva, normal diameter of the proximal ascending aorta, no coarctation of the aorta, moderately technically difficult echocardiogram. Will monitor patient clinically for any signs of heart failure. Her BNP was mildly elevated at 415 (H). Troponin I was <0.02. Total CK was 467 (H), CK-MB: 3 (N), CK-MB relative index was 0.56 (N). EKG done in the ED had shown: sinus rhythm, rate of 80, normal axis, QRS duration 90 ms, QTc interval 408 ms, subtle ST elevation inferiorly, lateral T wave inversion, consider ischemia, no priors for comparison. (7) Endometrial carcinoma Status: Chronic Problem Text: 11/28: Dx 2011, Stage 1B, grade 2, follows with Dr. Barrett in [place]. (8) GERD (gastroesophageal reflux disease) Status: Chronic Problem Text: 11/28: Continue omeprazole 40 mg daily. (9) Elevated liver enzymes Status: Acute Problem Text: 12/06/18: Awaiting CMP to see how liver enzymes are today. Alk phos was WNL yesterday encouragingly. 12/04/18: Alk phos trending down and was 118 (H) today. AST and ALT have normalized and remained normal throughout hospitalization. 11/29: Liver function tests and enzymes are normalizing and going down. AST was 29 WNL, ALT was 66 WNL, and alk phos has gone down to 151 (H) which was previously 189 (H). Will continue to monitor CMP. 11/28: Of note, patient's AST was 62 (H), ALT was 86 (H), alk phos 189 (H). Liver enzymes were previously normal. Will continue to trend CMP and see if needs further evaluation. (10) Cervical spondylosis without myelopathy Status: Chronic Problem Text: 11/28: Monitor for now. No pain medication ordered. Consider K- pad if needed. LFTs were elevated on labs today. Thus, I do not wish to give her tylenol nor NSAIDs at this time. (11) Hyperlipidemia Status: Chronic Problem Text: 11/28: Continue aspirin 81 mg daily and simvastatin 10 mg QHS. Plan/VTE VTE Prophylaxis Ordered?: Yes (Enoxaparin 40 mg SC daily) VS, I&O, 24H, Fishbone Vital Signs/I&O Vital Signs Date Time Temp Pulse Resp B/P (MAP) Pulse Ox O2 Delivery O2 Flow Rate FiO2 12/06/18 08:36 113/72 12/06/18 06:00 96.4 60 22 96 Nasal Cannula 2.0 I&O- Last 24 Hours up to 6 AM 12/06/18 05:59 Intake Total 1140 ml Output Total 1950 ml Balance -810 ml Laboratory Data 24H LABS Laboratory Tests 2 12/05/18 16:21: Bedside Glucose (Misc Panel) 449H 12/05/18 20:43: Bedside Glucose (Misc Panel) 339H 12/06/18 07:19: Bedside Glucose (Misc Panel) 196H 12/06/18 11:46: Bedside Glucose (Misc Panel) 307H Microbiology Microbiology 11/27/18 Blood Culture - Final, Complete NO GROWTH AFTER 5 DAYS 11/27/18 Blood Culture - Final, Complete NO GROWTH AFTER 5 DAYS 11/27/18 Respiratory Virus Panel (PCR) ([facility]) - Final, Complete Mycoplasma Pneumoniae GME ATTESTATION GME ATTESTATION My faculty preceptor for this patient encounter was Dr. Geovanny Aquino, and was physically present during the encounter and was fully available. All aspects of the patient interview, examination, medical decision making process, and medical care plan development were reviewed and approved by the faculty preceptor. The faculty preceptor is aware and concurs with the plan as stated in the body of this note and will attest to such by his/her cosignature. ATTENDING NOTE The patient was seen and examined. The case was reviewed with the PGY-3 on service. ROYAL FRYE DO Dec 06, 2018 13:01 Geovanny Aquino M.D. Dec 06, 2018 15:12
[2018-12-06 13:17] LABS: BLOOD UREA NITROGEN 19 MG/DL (7-18); CALCIUM LEVEL 8.6 MG/DL (8.8-10.2); CARBON DIOXIDE LEVEL 27 MEQ/L (21-32); CHLORIDE LEVEL 103 MEQ/L (98-107); CREATININE FOR GFR 0.74 MG/DL (0.55-1.30); GLOMERULAR FILTRATION RATE > 60.0 (>45); GLUCOSE, FASTING 293 MG/DL (70-100); POTASSIUM SERUM 4.3 MEQ/L (3.5-5.1); SODIUM LEVEL 137 MEQ/L (136-145)
[2018-12-06 14:00] VITALS: BP 114/68
[2018-12-06] MEDS: ENOXAPARIN 40 MG/0.4 ML SYRINGE (J1650) SC SCH (17:57)
[2018-12-06] MEDS ORDERED: LEVEMIR (INSULIN DETEMIR) 1 UNITS/0.01ML SC SCH (21:00)
[2018-12-06] MEDS: SIMVASTATIN 10 MG TAB PO SCH (21:47)
[2018-12-06 22:00] VITALS: BP 115/59
[2018-12-07] MEDS: IPRATROPIUM 0.5MG/ALBUTEROL 2.5MG INH SOL UD 3ML (DUONEB)(J7620) NEB SCH ×4 (01:30→21:13)
[2018-12-07] MEDS: guaiFENesin DM LIQ 10ML UD PO SCH ×6 (02:23→21:40)
[2018-12-07 06:00] VITALS: BP 119/59
[2018-12-07 06:02] LABS: BASO % 0.3 % (0.0-1.0); EOS # 0.2 10^3/uL (0.0-0.50); EOS % 3.1 % (0.0-3.0); HEMATOCRIT 39.2 % (36.0-47.0); HEMOGLOBIN 11.7 g/dl (12.0-15.5); LYMPH % 29.4 % (24.0-44.0); MEAN CORPUSCULAR HEMOGLOBIN 23.9 pg (27.0-33.0); MEAN CORPUSCULAR HGB CONC 29.8 g/dl (32.0-36.5); MEAN CORPUSCULAR VOLUME 80.2 fl (80.0-96.0); MONO # 0.6 10^3/uL (0.0-0.8); MONO % 8.9 % (0.0-5.0); NEUTROPHILS # 3.8 10^3/uL (1.8-7.7); NEUTROPHILS % 57.1 % (36.0-66.0); PLATELET COUNT, AUTOMATED 289 10^3/uL (150-450); RED BLOOD COUNT 4.89 10^6/uL (4.00-5.40); WHITE BLOOD COUNT 6.7 10^3/uL (4.0-10.0)
[2018-12-07 06:21] LABS: BLOOD UREA NITROGEN 14 MG/DL (7-18); CARBON DIOXIDE LEVEL 30 MEQ/L (21-32); CHLORIDE LEVEL 105 MEQ/L (98-107); CREATININE FOR GFR 0.72 MG/DL (0.55-1.30); GLOMERULAR FILTRATION RATE > 60.0 (>45); GLUCOSE, FASTING 135 MG/DL (70-100); SODIUM LEVEL 141 MEQ/L (136-145)
[2018-12-07] MEDS: HumaLOG INSULIN (NovoLOG) PER UNIT SC SCH ×4 (07:30→21:41)
[2018-12-07] MEDS: ASPIRIN 81 MG ENTERIC TAB PO SCH (08:20)
[2018-12-07] MEDS: MULTIVITAMINS/MINERALS THERAP 1 TAB PO SCH (08:20)
[2018-12-07] MEDS: LACTOBACILLUS ACIDOPHILUS CAP (BACID) PO SCH ×3 (08:20→17:44)
[2018-12-07] MEDS: CEFDINIR 300 MG CAP (OMNICEF) PO SCH ×2 (08:20→21:40)
[2018-12-07] MEDS: OMEPRAZOLE 20 MG CAP PO SCH (08:20)
[2018-12-07] MEDS: LISINOPRIL 20 MG TAB PO SCH (08:20)
[2018-12-07] MEDS ORDERED: predniSONE 50 MG TAB PO SCH (09:00)
[2018-12-07 14:00] VITALS: BP 126/60
[2018-12-07] MEDS: ENOXAPARIN 40 MG/0.4 ML SYRINGE (J1650) SC SCH (17:45)
[2018-12-07] MEDS: SIMVASTATIN 10 MG TAB PO SCH (21:40)
[2018-12-07] MEDS: LEVEMIR (INSULIN DETEMIR) 1 UNITS/0.01ML SC SCH (21:41)
[2018-12-07 22:00] VITALS: BP 115/55
[2018-12-08 00:33] VITALS: O2SAT 95
[2018-12-08] MEDS: IPRATROPIUM 0.5MG/ALBUTEROL 2.5MG INH SOL UD 3ML (DUONEB)(J7620) NEB SCH ×4 (00:42→19:44)
[2018-12-08] MEDS: guaiFENesin DM LIQ 10ML UD PO SCH ×6 (01:34→20:41)
[2018-12-08 06:00] VITALS: BP 118/58
[2018-12-08 06:07] LABS: BASO % 0.2 % (0.0-1.0); EOS # 0.2 10^3/uL (0.0-0.50); EOS % 3.2 % (0.0-3.0); HEMATOCRIT 37.9 % (36.0-47.0); HEMOGLOBIN 11.7 g/dl (12.0-15.5); LYMPH # 2.1 10^3/uL (1.5-4.5); LYMPH % 33.5 % (24.0-44.0); MEAN CORPUSCULAR HEMOGLOBIN 24.1 pg (27.0-33.0); MEAN CORPUSCULAR HGB CONC 30.9 g/dl (32.0-36.5); MONO # 0.7 10^3/uL (0.0-0.8); MONO % 10.5 % (0.0-5.0); NEUTROPHILS # 3.2 10^3/uL (1.8-7.7); NEUTROPHILS % 51.8 % (36.0-66.0); PLATELET COUNT, AUTOMATED 249 10^3/uL (150-450); RED BLOOD COUNT 4.86 10^6/uL (4.00-5.40); WHITE BLOOD COUNT 6.3 10^3/uL (4.0-10.0)
[2018-12-08 06:38] LABS: BLOOD UREA NITROGEN 12 MG/DL (7-18); CALCIUM LEVEL 8.9 MG/DL (8.8-10.2); CARBON DIOXIDE LEVEL 29 MEQ/L (21-32); CHLORIDE LEVEL 104 MEQ/L (98-107); CREATININE FOR GFR 0.62 MG/DL (0.55-1.30); GLOMERULAR FILTRATION RATE > 60.0 (>45); GLUCOSE, FASTING 169 MG/DL (70-100); POTASSIUM SERUM 3.5 MEQ/L (3.5-5.1); SODIUM LEVEL 140 MEQ/L (136-145)
--- NOTE | 2018-12-08 07:27 | IPNPDOC ---
Subjective Date Seen The patient was seen on 12/08/18. Subjective Chief Complaint/HPI SOB, pneumonia Events since last encounter has been weaned down to 2LNC maintaining sats in the upper 90s. Has hypoxia with coughing. Per nursing has trouble catching breath while coughing. On med review, not getting Albuterol nebs during these episodes. Is receiving duonebs q 6 hrs scheduled and prednisone. no exertional hypoxia noted. Constitutional: Denies: Chills, Fever, Night Sweats Pulmonary: Reports: Dyspnea, Cough Gastrointestinal: Denies: Nausea, Vomiting, Abdominal Pain, Diarrhea, Constipation Genitourinary: Denies: Dysuria, Frequency, Incontinence, Retention Objective Physical Examination General Exam: Positive: Alert, Cooperative, No Acute Distress, Other Eye Exam: Positive: Conjunctiva & lids normal; Negative: Sclera icteric ENT Exam: Positive: Atraumatic Neck Exam: Positive: Supple Chest Exam: Positive: Normal air movement, Diminished (bibasilar); Negative: Rales, Rhonchi, Wheezing Heart Exam: Positive: Rate Normal, Regular Rhythm, Normal S1, Normal S2; Negative: Murmurs Abdomen Exam: Positive: Normal bowel sounds, Soft, Other (morbidly obese); Negative: Tenderness, Hepatospenomegaly Extremity Exam: Negative: Clubbing, Cyanosis, Edema Skin Exam: Negative: Rash Psych Exam: Positive: Mental status NL, Mood NL, Oriented x 3 Assessment /Plan Problems (1) Acute respiratory failure with hypoxia Status: Acute Problem Text: 12/08/17: Wean oxygen to keep sats 88-92 %. Give albuterol nebs with coughing episodes. Continue Robitussin DM scheduled. work toward [place] home in 1-3 days. 12/06/18: Improving. Still requiring 2 liters nasal cannula O2. Continue cefdinir 300 mg PO BID. Labs from 12/06 not available as of yet. Have reordered them. Will recheck WBC. Will taper prednisone down from 60 mg to 50 mg daily. Continue duonebs and oxygen therapy to maintain sats >90%. 12/04/18: Gradually improving. Has been weaned down to 3 liters nasal cannula. Repeat CXR yesterday showed: persistent consolidation RLL consistent with pneumonia. Working with PT and was cleared by PT yesterday. Continue current regimen: prednisone 60 mg PO daily, duonebs, humidified oxygen. Have also added guaifenesin/dextromethorphan to be q4h routine instead of PRN. Will continue 1500 mL fluid restriction to avoid fluid overload/pleural effusions. Will plan to start tapering prednisone tomorrow. 12/03/18: Slow improvement. repeat CXR today. Continue current medication regimen. PT ordered. 12/02/18: Improvement with increase in solumedrol, lasix and duonebs. Will cut solumedrol down to prednisone 60 mg po daily. Furosemide 40 mg x 1 again today. Will give fluid restriction until properly diuresed. Patient agreeable and showing improvement in condition. 12/01/18: poor tolerance to weaning off of Venti mask. Repeat CXR today. added on Ceftriaxone for abx coverage. Solumedrol 80 mg IV q 8 hrs. Duonebs q 6hrs. Continue to attempt weaning down on oxygen. 11/29: Satting 95% on 15 L/min Venturi Mask. Not on FiO2. Lowest O2 saturation on 11/28 was: 84% at 7:15 AM and 87% at 2200. Continue to maintain O2 saturations above 90% with O2 therapy. Continue albuterol neb tx. Continue to mo nitor pulse oximetry for any desaturation events. Treat underlying cause: Mycoplasma Pneumoniae Pneumonia with Azithromycin. 11/28: Satting 92% on 15 L/min Venturi Mask and FiO2 50%. Lowest O2 saturation was 86% on 11/27. Overnight, patient did desat down to 87% on 11/28 early this AM. Patient has hypoxic respiratory failure likely secondary to Mycoplasma Pneumoniae Pneumonia as evidenced by Respiratory Panel results. Will continue current management and try to maintain O2 saturations above 90%. Have also ordered albuterol nebulizer treatments RQ6H and Q2H PRN. (2) Community acquired pneumonia due to Mycoplasma pneumoniae Status: Acute Problem Text: 12/08/18: Day #3 of Cefdinir 300 mg PO BID. 12/06/18: Day #1 of Cefdinir 300 mg PO BID. Still awaiting CBC results. Patient clinically improving. O2 weaned down to 2 liters, but will work on weaning down more today. Continue duonebs and O2 therapy. 12/04/18: Day #4 of Ceftriaxone and Day #6 of Azithromycin. WBC is WNL at 7.4 and has normalized since December 01. Patient is clinically improving. Oxygen has been weaned down to 3 liters. Continue antibiotics and duonebs. 12/03/18: 12/02/17: Ceftriaxone day#3. Day #5 Azithromycin 12/02/18: Ceftriaxone day#2. Day #4 Ceftriaxone 12/01/18: Day #3 Azithromycin. Added on Ceftriaxone due to elevated WBC. Can consider changing to quinolone due to poor progression and improvement. 11/29: Day 2 of azithromycin. Continue IV solumedrol. WBC still WNL at 7 but is climbing up. However, patient is on steroid. Has remained afebrile overnight. 11/28: Respiratory Panel was (+) for Mycoplasma Pneumoniae Pneumonia. Patient was originally started on ceftriaxone and azithromycin. Have d/ce'd the ceftriaxone and kept azithromycin for atypical organism coverage. Will continue to trend WBC and CBC. WBC astonishingly is WNL at 6.7 today. Continue O2 supplementation and nebulizer treatments. In addition, have added 40 mg IV solu medrol qdaily x 5 days. (3) Pleural effusion Status: Acute Problem Text: 12/06/18: Continue with strict I/O's and 1500 mL fluid restriction. Had net negative diuresis of (-)510 mL yesterday. No signs of fluid overload on exam. Continue to monitor clinically. 12/04/18: Continue monitoring strict I's/O's and 1500 mL fluid restriction. Was 1020 mL in yesterday and 1700 mL out yesterday with a net negative diuresis of (-)680 mL. No crackles and no signs of fluid overload on exam today. Continue to monitor clinically. 12/02/18: volume overload noted in in-patient setting. Given lasix 40 mg IV x 1 yesterday. will give additional today. strict I/O and 1500 ml fluid restriction. (4) Microcytic anemia Status: Acute Response to Treatment: Stable Problem Text: 12/08/18: stable 12/06/18: CBC pending still. Have started patient on ferrous sulfate 325 mg PO every other day for likely iron deficiency in addition to her anemia of chronic disease. 12/04/18: Hgb 11.8 (L) and MCV 78.2 (L). Hgb is stable. Continue to monitor CBC. Likely anemia of chronic disease with iron deficiency anemia as well from workup as mentioned below. Will consider iron supplementation. Although, currently, patient is constipated so will hold off on that. 11/29: Hgb was 10 (L), MCV was 77 (L), RDW was 17.2 (H), Retic # 59.9 WNL, Retic Hgb Equivalent 23.2(L), iron 45 (L), TIBC 244 (L), transferrin 202 WNL, transferrin % saturation 18.4 WNL, ferritin 105 WNL. Vitamin B12 545 WNL, and Folate 22.6 WNL. Anemia workup reveals etiology to be likely either: anemia of chronic disease and some additional iron deficiency anemia. If patient's ethnicity is Mediterranean origin, then thalassemia workup could be considered. 11/28: Has microcytic anemia on exams with Hgb 10.3 and MCV 77.9. RDW was high at 17.0 (H). Will order iron studies, vitamin B12, and folate to evaluate etiology of anemia. (5) Diabetes mellitus type 2 in obese Status: Chronic Problem Text: 12/06/18: CMP pending for today and will recheck serum glucose. FS still running a bit high at 196 (H) at 07:19 and 307 (H) at 11:46. Will increase detemir to 12 units today. Continue ISS with humalog at and [facility]. Continue to monitor FS for further adjustments. 12/04/18: Blood sugars have been elevated with prednisone. Will continue ISS coverage with humalog. However, currently only on 5 units detemir. Is requiring 40 units of sliding scale coverage thus far daily. So, I will plan on increasing patient's detemir to either 10-15 units after talking to attending physician. Continue to monitor FS. 12/02/18: blood sugars have been elevated with steroids. Continue with sliding scale and monitoring. 11/29: Serum glucose was 175 (H) and FS was 238 (H). Patient required 10 units sliding scale coverage yesterday. Will start patient on basal insulin at half that dose: detemir 5 units today. Still on ISS coverage at and [facility]. 11/28: Patient's last HgbA1C was 7.7 on 10/02/18. Patient was started on her home regimen of metformin 1000 mg BID and glipizide. However, due to patient's risk of going into renal failure during hospitalization with acute infection, will stop metformin for now. In addition, will hold glipizide for now. Will start sliding scale coverage with FS checks at and [facility]. Will adjust therapy as necessary. (6) Grade I diastolic dysfunction Status: Chronic Problem Text: 12/06/18: Appears well compensated. No clinical signs of fluid overload on exam. Continue fluid restriction and I/O monitoring. 12/04/18: No signs of fluid overload on exam today. Continue 1500 mL fluid restriction and strict I/O monitoring. 12/02/18: volume overload noted in in-patient setting. Given lasix 40 mg IV x 1 yesterday. will give additional today. strict I/O and 1500 ml fluid restriction. 11/28: According to [facility] records on outpatient EMR, patient had Echocardiogram on 08/2018 that showed normal LV internal dimensions and wall thickness, hyperdynamic LV systolic function LVEF 80%, mild dynamic LVOT obstructive gradient, Grade I LV diastolic dysfunction, mild L atrial dilitation, structurally and functioning normal aortic valve, no aortic stenosis, mild dilitation of the aortic root at the level of the sinuses Valsalva, normal diameter of the proximal ascending aorta, no coarctation of the aorta, moderately technically difficult echocardiogram. Will monitor patient clinically for any signs of heart failure. Her BNP was mildly elevated at 415 (H). Troponin I was <0.02. Total CK was 467 (H), CK-MB: 3 (N), CK-MB relative index was 0.56 (N). EKG done in the ED had shown: sinus rhythm, rate of 80, normal axis, QRS duration 90 ms, QTc interval 408 ms, subtle ST elevation inferiorly, lateral T wave inversion, consider ischemia, no priors for comparison. (7) Endometrial carcinoma Status: Chronic Problem Text: 11/28: Dx 2011, Stage 1B, grade 2, follows with Dr. Barrett in [place]. (8) GERD (gastroesophageal reflux disease) Status: Chronic Problem Text: 11/28: Continue omeprazole 40 mg daily. (9) Cervical spondylosis without myelopathy Status: Chronic Problem Text: 11/28: Monitor for now. No pain medication ordered. Consider K- pad if needed. LFTs were elevated on labs today. Thus, I do not wish to give her tylenol nor NSAIDs at this time. (10) Physical deconditioning Status: Acute Problem Text: 1/2 PT safe to dc home Plan/VTE VTE Prophylaxis Ordered?: Yes (Enoxaparin 40 mg SC daily) VS, I&O, 24H, Fishbone Vital Signs/I&O Vital Signs Date Time Temp Pulse Resp B/P (MAP) Pulse Ox O2 Delivery O2 Flow Rate FiO2 12/08/18 06:00 96.8 63 19 118/58 (78) 99 Nasal Cannula 2.0 I&O- Last 24 Hours up to 6 AM 12/08/18 06:00 Intake Total 1810 ml Output Total 2775 ml Balance -965 ml Laboratory Data 24H LABS Laboratory Tests 2 12/07/18 11:22: Bedside Glucose (Misc Panel) 290H 12/07/18 17:10: Bedside Glucose (Misc Panel) 332H 12/07/18 20:00: Bedside Glucose (Misc Panel) 290H 12/08/18 05:24: Immature Granulocyte % (Auto) 0.8, White Blood Count 6.3, Red Blood Count 4.86, Hemoglobin 11.7L, Hematocrit 37.9, Mean Corpuscular Volume 78.0L, Mean Corpuscular Hemoglobin 24.1L, Mean Corpuscular Hemoglobin Concent 30.9L, Red Cell Distribution Width 17.7H, Platelet Count 249, Neutrophils (%) (Auto) 51.8, Lymphocytes (%) (Auto) 33.5, Monocytes (%) (Auto) 10.5H, Eosinophils (%) (Auto) 3.2H, Basophils (%) (Auto) 0.2, Neutrophils # (Auto) 3.2, Lymphocytes # (Auto) 2.1, Monocytes # (Auto) 0.7, Eosinophils # (Auto) 0.2, Basophils # (Auto) 0.0, Nucleated Red Blood Cells % (auto) 0.0, Anion Gap 7L, Glomerular Filtration Rate > 60.0, Blood Urea Nitrogen 12, Creatinine 0.62, Sodium Level 140, Potassium Level 3.5, Chloride Level 104, Carbon Dioxide Level 29, Calcium Level 8.9 CBC/BMP Laboratory Tests 12/08/18 05:24 Red Blood Count 4.86, Mean Corpuscular Volume 78.0 L, Mean Corpuscular Hemoglob in 24.1 L, Mean Corpuscular Hemoglobin Concent 30.9 L, Red Cell Distribution Width 17.7 H, Neutrophils (%) (Auto) 51.8, Lymphocytes (%) (Auto) 33.5, Monocytes (%) (Auto) 10.5 H, Eosinophils (%) (Auto) 3.2 H, Basophils (%) (Auto) 0.2, Neutrophils # (Auto) 3.2, Lymphocytes # (Auto) 2.1, Monocytes # (Auto) 0.7, Eosinophils # (Auto) 0.2, Basophils # (Auto) 0.0, Calcium Level 8.9 Karen Orr Dec 08, 2018 07:27 Maxi Colorado M.D. Dec 08, 2018 16:44
--- NOTE | 2018-12-08 07:42 | IPN ---
DATE: 12/07/2018 The patient is seen today [facility]. She still has some coughing and chest congestion. She does take her O2 off to go to the bathroom and to change position. The cough occasionally is productive. She is not having any chest pains. Her blood sugars have been elevated. She has history of diabetes and was taking metformin, glipizide and Januvia as well as Trulicity at home. Medications for her diabetes here have been Levemir and sliding-scale insulin. She also is on prednisone which is affecting her blood sugars as well. Additional medications include ferrous sulfate, Cefdinir, Robitussin DM, scheduled DuoNebs, Bacid, Lovenox, as needed (p.r.n.)for hypoglycemia, simvastatin, omeprazole, multivitamins, lisinopril, and aspirin. She has p.r.n. for wheezing as well. On examination, her temperature is 96.2, blood pressure 119/59, pulse 58, respirations 20, O2 saturation on 2 liters is 97%. She is alert, pleasant, cooperative, not in any distress. She does have some cough which is somewhere between a dry cough and loose cough. Eyes are clear. No facial weakness. Speech is clear. No neck masses, tenderness or adenopathy. No carotid bruits. Lungs show some coarse rales at the bases that clear with coughing. Heart has a regular rhythm without any murmur, click or gallop. Abdomen is soft and nontender. There is zero to trace edema. Labs today show a white count of 6,700, hemoglobin 11,700, platelet count 289,000. Blood sugars been running 196 to 335 during the last 24 hours. This morning, her BUN was 14, creatinine 0.72, glucose 135, sodium 141, potassium 4.0. ASSESSMENT: 1. Acute hypoxic respiratory failure, mostly resolved. 2. Community acquired pneumonia secondary to Mycoplasma. 3. Microcytic anemia. 4. Diabetes type 2 exacerbated by corticosteroid therapy and change in her chronic diabetic regimen. 5. History of grade 1 diastolic dysfunction. 6. History of endometrial carcinoma. 7. Gastroesophageal reflux. 8. Abnormal liver functions. These were normal two days ago. 9. Hyperlipidemia. PLAN: Will continue on her current medication regimen. I did drop down her prednisone to 40 mg a day. Her hypoxia is largely resolved. She still is on [id number] and p.r.n. nebulizers. She is on oral antibiotic and oral steroid therapy at this time. I think discharge is doable within the next day or two. Prior to her hospitalization, she did not have any respiratory treatments or oxygen. YNES
[2018-12-08] MEDS: HumaLOG INSULIN (NovoLOG) PER UNIT SC SCH ×4 (08:22→20:43)
[2018-12-08] MEDS: LACTOBACILLUS ACIDOPHILUS CAP (BACID) PO SCH ×3 (08:23→18:32)
[2018-12-08] MEDS: predniSONE 20 MG TAB PO SCH (08:23)
[2018-12-08] MEDS: OMEPRAZOLE 20 MG CAP PO SCH (08:23)
[2018-12-08] MEDS: CEFDINIR 300 MG CAP (OMNICEF) PO SCH ×2 (08:23→20:42)
[2018-12-08] MEDS: FERROUS SULFATE 325MG TAB PO SCH (08:24)
[2018-12-08] MEDS: ASPIRIN 81 MG ENTERIC TAB PO SCH (08:24)
[2018-12-08] MEDS: MULTIVITAMINS/MINERALS THERAP 1 TAB PO SCH (08:24)
[2018-12-08] MEDS: LISINOPRIL 20 MG TAB PO SCH (08:24)
[2018-12-08 14:00] VITALS: BP 124/58
[2018-12-08] MEDS: ENOXAPARIN 40 MG/0.4 ML SYRINGE (J1650) SC SCH (18:33)
[2018-12-08] MEDS: SIMVASTATIN 10 MG TAB PO SCH (20:42)
[2018-12-08] MEDS: LEVEMIR (INSULIN DETEMIR) 1 UNITS/0.01ML SC SCH (20:42)
[2018-12-08 22:00] VITALS: BP 107/55
[2018-12-09] MEDS: IPRATROPIUM 0.5MG/ALBUTEROL 2.5MG INH SOL UD 3ML (DUONEB)(J7620) NEB SCH ×3 (00:52→13:28)
[2018-12-09] MEDS: guaiFENesin DM LIQ 10ML UD PO SCH ×4 (01:38→12:48)
[2018-12-09 05:50] LABS: BASO % 0.6 % (0.0-1.0); EOS # 0.2 10^3/uL (0.0-0.50); HEMATOCRIT 37.8 % (36.0-47.0); HEMOGLOBIN 11.3 g/dl (12.0-15.5); LYMPH # 2.2 10^3/uL (1.5-4.5); LYMPH % 34.7 % (24.0-44.0); MEAN CORPUSCULAR HEMOGLOBIN 23.7 pg (27.0-33.0); MEAN CORPUSCULAR HGB CONC 29.9 g/dl (32.0-36.5); MEAN CORPUSCULAR VOLUME 79.2 fl (80.0-96.0); MONO # 0.7 10^3/uL (0.0-0.8); MONO % 11.8 % (0.0-5.0); NEUTROPHILS # 3.1 10^3/uL (1.8-7.7); NEUTROPHILS % 49.1 % (36.0-66.0); PLATELET COUNT, AUTOMATED 206 10^3/uL (150-450); RED BLOOD COUNT 4.77 10^6/uL (4.00-5.40); WHITE BLOOD COUNT 6.3 10^3/uL (4.0-10.0)
[2018-12-09 06:00] VITALS: BP 120/70
[2018-12-09 06:13] LABS: BLOOD UREA NITROGEN 15 MG/DL (7-18); CALCIUM LEVEL 8.6 MG/DL (8.8-10.2); CARBON DIOXIDE LEVEL 28 MEQ/L (21-32); CHLORIDE LEVEL 105 MEQ/L (98-107); CREATININE FOR GFR 0.64 MG/DL (0.55-1.30); GLOMERULAR FILTRATION RATE > 60.0 (>45); GLUCOSE, FASTING 218 MG/DL (70-100); POTASSIUM SERUM 3.6 MEQ/L (3.5-5.1); SODIUM LEVEL 141 MEQ/L (136-145)
[2018-12-09 08:29] VITALS: BP 138/66
[2018-12-09 08:31] VITALS: BP 138/66
[2018-12-09] MEDS: LISINOPRIL 20 MG TAB PO SCH (08:31)
[2018-12-09] MEDS: ASPIRIN 81 MG ENTERIC TAB PO SCH (08:31)
[2018-12-09] MEDS: LACTOBACILLUS ACIDOPHILUS CAP (BACID) PO SCH ×2 (08:31→12:48)
[2018-12-09] MEDS: HumaLOG INSULIN (NovoLOG) PER UNIT SC SCH ×2 (08:31→12:48)
[2018-12-09] MEDS: predniSONE 20 MG TAB PO SCH (08:31)
[2018-12-09] MEDS: MULTIVITAMINS/MINERALS THERAP 1 TAB PO SCH (08:31)
[2018-12-09] MEDS: CEFDINIR 300 MG CAP (OMNICEF) PO SCH (08:31)
[2018-12-09] MEDS: OMEPRAZOLE 20 MG CAP PO SCH (08:31)
[2018-12-09] MEDS ORDERED: PRED10TA2 PO (09:10)
[2018-12-09] MEDS ORDERED: ALB2.5NEB NEB (09:10)
[2018-12-09] MEDS ORDERED: FERR1TAB8 PO (09:10)
[2018-12-09] MEDS ORDERED: CEFD300CAP PO (09:10)
[2018-12-09] MEDS ORDERED: RISATAB3 PO (09:10)
[2018-12-09] MEDS ORDERED: COMP1MIS3 XX (09:16)
--- NOTE | 2018-12-09 09:34 | DSES ---
DATE OF ADMISSION: 11/27/2018 DATE OF DISCHARGE: 12/09/2018 ATTENDING PHYSICIAN: Dr. Maxi [place] OUTPATIENT ATTENDING: Dr. Jimmie Butler HISTORY: This is a 58-year-old female patient who presented to [facility] emergency room complaining of productive cough for the past week and a half. She was at urgent care four days prior and was given a prescription for Ceftin, but she reported that she was not improving and was potentially worsening. In the emergency room, she was found to be hypoxic with a pulse oximetry of 73% and was started on a 50% Venturi mask. CT revealed extensive lobar pattern consolidation of the right lower lobe consistent with pneumonia. She was admitted to the hospital for further management and monitoring and started on IV antibiotics with Rocephin and azithromycin. During her hospitalization, she did remain medically stable, although she was quite slow to recover. She has finally successfully been weaned from her oxygen and seems to be tolerating as well. She will need followup outpatient chest x-rays to follow the consolidation to resolution. Her white blood cell count has remained normal during her hospitalization. She was continued on many of her at home medications and those that were discontinued will be restarted at her discharge today. She was also noted to have a pleural effusion and was started on ins and outs as well as a 1500 mL fluid restriction. She did receive a dose of Lasix while inpatient as well. She was identified to have a microcytic anemia. She was started on iron sulfate every other day. DISCHARGE DIAGNOSES: 1. Acute respiratory failure with hypoxia. 2. Community acquired pneumonia due to Mycoplasma. 3. Pleural effusion. 4. Microcytic anemia. 5. Diabetes mellitus type 2. 6. Grade 1 diastolic dysfunction. 7. Endometrial carcinoma. 8. Gastroesophageal reflux disease. 9. Cervical spondylosis. DISCHARGE MEDICATIONS: - albuterol sulfate nebulizer inhaled every 2 hours as needed for shortness of breath - Cefdinir 300 mg by mouth twice daily times five additional days - furosemide 325 mg by mouth every 48 hours - prednisone taper 40 mg daily times three days, then 30 daily times three days, then 20 mg daily times three days, then 10 mg daily times three days - Probiotic 2 tablets with meals for the next five days - Ventolin inhaler 2 puffs every 4 hours as needed for shortness of breath - aspirin 81 mg daily - Jardiance 25 mg daily - glipizide 10 mg daily - lisinopril 20 mg daily - metformin 1000 mg by mouth twice a day - multivitamin one tablet daily - omeprazole 40 mg daily - simvastatin 10 mg at bedtime - Trulicity 1.5 mg subcutaneous weekly - Wal-Tussin 100 mg per 5 mL every 4 hours as needed for cough DISCHARGE PLAN: To followup with Dr. Butler or primary care physician (PCP). Her activity should be as tolerated. Her diet should be consistent carbohydrate, no added salt. She will need followup chest x-rays in the outpatient setting. edited: 12/11/2018 0750 marleny QUICK
[2018-12-09 14:00] VITALS: BP 136/68
== END 2018-12-09 17:15 | disposition home or self-care (01) | DRG 139 ==
LOC: M ED 15:22 → M ED INP 20:19 → M MSPAV 11-28 13:12
PROVIDERS: ADMIT Internal Medicine; ATTEND Family Medicine
DX: J15.7 Pneumonia due to Mycoplasma pneumoniae (principal); J96.01 Acute respiratory failure with hypoxia; J90 Pleural effusion, not elsewhere classified; I10 Essential (primary) hypertension; D50.9 Iron deficiency anemia, unspecified; E11.9 Type 2 diabetes mellitus without complications; K21.9 Gastro-esophageal reflux disease without esophagitis; M43.02 Spondylolysis, cervical region; Z79.82 Long term (current) use of aspirin; Z79.899 Other long term (current) drug therapy; E78.5 Hyperlipidemia, unspecified; E66.9 Obesity, unspecified; R74.8 Abnormal levels of other serum enzymes

== ENCOUNTER → 2018-12-19 | Outpatient (CLI) | payer BC ==
[~2018-12-19] MED LIST: ALB2.5NEB NEB; ASPI81TA85 PO; CEFD300CAP PO; CEFU50TA PO; COMP1MIS3 XX; FERR1TAB8 PO; GLIP10TA18 PO; JANU100T PO; JARD1TAB3 PO; LISI-538 PO; METF10004 PO; OMEP40CA2 PO; PRED10TA2 PO; RISATAB3 PO; SIMV10TA2 PO; TRUL0.5I SQ; VENTAER INH; VITMTA PO; WAL-100S PO
--- NOTE | 2018-12-19 15:50 | REP ---
Chest two views HISTORY: Pneumonia Comparison: 12/03/2018 Parenchymal density is present in the right lower lobe consistent with an infiltrate that is slightly decreased compared to the previous study. Parenchymal density is present in the right infrahilar region consistent with atelectasis or infiltrate. Linear density is present in the left lower lobe consistent with atelectasis or scar. The cardiac silhouette is enlarged. The pulmonary vasculature is normal in appearance. The bony structure is intact. IMPRESSION: 1. Right lower lobe infiltrate decreased compared to the previous study. 2. There is a new area of atelectasis or infiltrate in the right infrahilar region. 3. Left lower lobe atelectasis or scar. 4. Cardiomegaly. Electronically Signed by Jose Shelton MD 12/19/2018 03:42 P
== END ==
LOC: M SMT 13:46
PROVIDERS: ATTEND Nurse Practitioner Family
DX: J95.01 Hemorrhage from tracheostomy stoma (principal); J15.7 Pneumonia due to Mycoplasma pneumoniae; I51.7 Cardiomegaly

== ENCOUNTER → 2018-12-19 | Outpatient (REF) | payer BC ==
[2018-12-19 16:04] LABS: BASO % 0.6 % (0.0-1.0); EOS # 0.2 10^3/uL (0.0-0.50); EOS % 2.3 % (0.0-3.0); HEMATOCRIT 41.1 % (36.0-47.0); HEMOGLOBIN 12.6 g/dl (12.0-15.5); LYMPH # 0.8 10^3/uL (1.5-4.5); LYMPH % 10.6 % (24.0-44.0); MEAN CORPUSCULAR HGB CONC 30.7 g/dl (32.0-36.5); MEAN CORPUSCULAR VOLUME 81.4 fl (80.0-96.0); MONO # 0.5 10^3/uL (0.0-0.8); MONO % 7.5 % (0.0-5.0); NEUTROPHILS # 5.6 10^3/uL (1.8-7.7); NEUTROPHILS % 78.4 % (36.0-66.0); PLATELET COUNT, AUTOMATED 190 10^3/uL (150-450); RED BLOOD COUNT 5.05 10^6/uL (4.00-5.40); WHITE BLOOD COUNT 7.1 10^3/uL (4.0-10.0)
[2018-12-19 16:09] LABS: ALBUMIN 3.7 GM/DL (3.2-5.2); ALT/SGPT 38 U/L (12-78); BILIRUBIN,TOTAL 0.5 MG/DL (0.2-1.0); BLOOD UREA NITROGEN 12 MG/DL (7-18); CALCIUM LEVEL 9.3 MG/DL (8.8-10.2); CARBON DIOXIDE LEVEL 25 MEQ/L (21-32); CHLORIDE LEVEL 109 MEQ/L (98-107); GLOMERULAR FILTRATION RATE > 60.0 (>45); GLUCOSE, FASTING 221 MG/DL (70-100); IRON (FE) 51 UG/DL (50-170); PERCENT SATURATION 14.4 % (13.2-45.0); POTASSIUM SERUM 3.8 MEQ/L (3.5-5.1); SODIUM LEVEL 142 MEQ/L (136-145); TOTAL IRON BINDING CAPACITY 355 UG/DL (250-450); TOTAL PROTEIN 6.9 GM/DL (6.4-8.2)
[2018-12-19 16:36] LABS: HEMOGLOBIN A1c 8.7 %
== END ==
LOC: M SFHCPLAZ 12:42
PROVIDERS: ATTEND Nurse Practitioner Family
DX: E11.9 Type 2 diabetes mellitus without complications (principal); J15.7 Pneumonia due to Mycoplasma pneumoniae; D50.9 Iron deficiency anemia, unspecified

== ENCOUNTER → 2019-02-03 | Outpatient (CLI) | payer BC ==
--- NOTE | 2019-02-04 02:36 | REP ---
Clinical: Right lower lobe pneumonia. Technique: PA and lateral. Comparison: 12/19/2018. Findings: Area of linear fibroatelectatic change involving the right mid/lower lung zone is essentially stable and likely represents chronic changes. No focal consolidation, effusion, or pneumothorax. The mediastinum and cardiac silhouette are within normal limits and stable. Skeletal structures are intact. Impression: Chronic-appearing linear fibroatelectatic change in the right mid to lower lung zone. No obvious acute consolidation. Electronically Signed by Marvin Ochoa MD 02/04/2019 02:28 A
== END ==
LOC: M SMT 12:07
PROVIDERS: ATTEND Nurse Practitioner Family
DX: R91.8 Other nonspecific abnormal finding of lung field (principal); J15.7 Pneumonia due to Mycoplasma pneumoniae

== ENCOUNTER → 2019-02-14 | Outpatient (CLI) | payer BC ==
--- NOTE | 2019-02-15 10:03 | REP ---
CT CHEST WITHOUT CONTRAST: HISTORY: Abnormal chest x-ray. COMPARISON: CT ANGIO chest 11/27/2018 and chest x-ray 02/03/2019. Linear densities are present in the right lower lobe and left upper lobe consistent with atelectasis or scar. There is no pleural effusion. The heart is normal in size. Atherosclerotic calcification is present in the thoracic aorta. There is no aneurysm. There is no mediastinal mass. Degenerative change is present in the thoracic spine. IMPRESSION: Right lower lobe and left upper lobe atelectasis or scar. Electronically Signed by Jose Shelton MD 02/15/2019 10:08 A
== END ==
LOC: M RAD 11:57
PROVIDERS: ATTEND Nurse Practitioner Family
DX: J98.11 Atelectasis (principal)

== ENCOUNTER → 2019-04-09 | Outpatient (REF) | payer BC ==
[2019-04-09 12:14] LABS: ALBUMIN 3.8 GM/DL (3.2-5.2); ALT/SGPT 33 U/L (12-78); BILIRUBIN,TOTAL 0.3 MG/DL (0.2-1.0); BLOOD UREA NITROGEN 15 MG/DL (7-18); CALCIUM LEVEL 9.3 MG/DL (8.8-10.2); CARBON DIOXIDE LEVEL 29 MEQ/L (21-32); CHLORIDE LEVEL 106 MEQ/L (98-107); CREATININE FOR GFR 0.78 MG/DL (0.55-1.30); GLOMERULAR FILTRATION RATE > 60.0 (>45); GLUCOSE, FASTING 104 MG/DL (70-100); POTASSIUM SERUM 4.6 MEQ/L (3.5-5.1); SODIUM LEVEL 140 MEQ/L (136-145); TOTAL PROTEIN 6.9 GM/DL (6.4-8.2)
[2019-04-09 12:34] LABS: CREATININE, URINE 97.1 MG/DL; MALB URINE SIEMENS 24.9 MG/L; MAU/CREAT RATIO 25.6 MCG/MG (0.0-30.0)
[2019-04-09 13:21] LABS: HEMOGLOBIN A1c 7.3 %
== END ==
LOC: M SFHCPLAZ 09:32
PROVIDERS: ATTEND Nurse Practitioner Family
DX: E11.9 Type 2 diabetes mellitus without complications (principal); E78.5 Hyperlipidemia, unspecified

== ENCOUNTER 2019-05-07 16:35 | Emergency (ER) | payer OTHER, BC ==
[~2019-05-07] VITALS: Ht 175.3 cm; Wt 126.0 kg
[2019-05-07] MEDS ORDERED: ALL10TAB28 (16:43)
[2019-05-07 18:06] VITALS: BP 133/60
== END 2019-05-07 18:09 | disposition home or self-care (01) ==
LOC: M ED 16:35
DX: S00.83XA Contusion of other part of head, initial encounter (principal); W01.10XA Fall on same level from slipping, tripping and stumbling with subsequent striking against unspecified object, initial encounter; Y92.89 Other specified places as the place of occurrence of the external cause; Y93.9 Activity, unspecified; Y99.0 Civilian activity done for income or pay; E11.9 Type 2 diabetes mellitus without complications; I10 Essential (primary) hypertension; E78.5 Hyperlipidemia, unspecified; K21.9 Gastro-esophageal reflux disease without esophagitis; R01.1 Cardiac murmur, unspecified; M47.812 Spondylosis without myelopathy or radiculopathy, cervical region; Z79.82 Long term (current) use of aspirin; Z79.84 Long term (current) use of oral hypoglycemic drugs; Z79.899 Other long term (current) drug therapy

== ENCOUNTER → 2019-06-30 | Outpatient (CLI) | payer BC ==
[~2019-06-30] MED LIST changes: +ALL10TAB28
--- NOTE | 2019-06-30 15:29 | REP ---
Clinical: Abdominal pain. Technique: Two supine views of the abdomen and pelvis. Findings: Bowel gas pattern is nonspecific. No organomegaly. No abnormal calcifications. Skeletal structures are intact and normal for age. Impression: Nonspecific abdominal radiographs. Electronically Signed by Marvin Ochoa MD 06/30/2019 03:20 P
== END ==
LOC: M RAD 14:45
PROVIDERS: ATTEND Physician Assistant Medical
DX: R10.9 Unspecified abdominal pain (principal)

== ENCOUNTER → 2019-09-01 | Outpatient (REF) | payer BC ==
[~2019-09-01] MED LIST changes: -ALL10TAB28; +ALL10TAB29; -OMEP40CA2 PO; +OMEP40CA97 PO; -SIMV10TA2 PO; +SIMV10TA21 PO
[2019-09-01 13:33] LABS: ALBUMIN 3.7 GM/DL (3.2-5.2); ALT/SGPT 29 U/L (12-78); BILIRUBIN,TOTAL 0.5 MG/DL (0.2-1.0); BLOOD UREA NITROGEN 15 MG/DL (7-18); CALCIUM LEVEL 10.2 MG/DL (8.8-10.2); CARBON DIOXIDE LEVEL 28 MEQ/L (21-32); CHLORIDE LEVEL 104 MEQ/L (98-107); CREATININE FOR GFR 0.97 MG/DL (0.55-1.30); GLOMERULAR FILTRATION RATE > 60.0 (>45); GLUCOSE, FASTING 172 MG/DL (70-100); POTASSIUM SERUM 4.5 MEQ/L (3.5-5.1); SODIUM LEVEL 139 MEQ/L (136-145); TOTAL PROTEIN 7.3 GM/DL (6.4-8.2)
[2019-09-01 14:28] LABS: HEMOGLOBIN A1c 6.5 %
== END ==
LOC: M SFHCPLAZ 11:10
PROVIDERS: ATTEND Nurse Practitioner Family
DX: E11.9 Type 2 diabetes mellitus without complications (principal)

== ENCOUNTER → 2019-12-22 | Outpatient (CLI) | payer BC ==
--- NOTE | 2019-12-22 14:52 | REPMRS ---
Patient History The patient states she has not had a clinical breast exam in over a year. No known family history of cancer. Benign stereotactic core biopsy of the left breast, June 07, 2011. No Hormone Replacement Therapy Digital Woman Screen Mammo: December 22, 2019 - Exam #: [id number] Bilateral CC and MLO view(s) were taken. Technologist: Raysa Torres, Technologist Prior study comparison: July 04, 2018, bilateral digital woman screen mammo performed at [facility]. May 14, 2017, digital woman screen mammo performed at [facility]. April 06, 2016, digital woman screen mammo performed at [facility]. FINDINGS: There are scattered fibroglandular densities. There has been no change in the appearance of the mammogram from the prior studies. There is a mild amount of scattered fibroglandular density which is fairly symmetric. There is no interval development of dominant mass, architectural distortion, or grouped microcalcification suggestive of malignancy. 3-D tomosynthesis shows no additional findings. Assessment: BI-RADS/ACR category 1 mammogram. Negative Mammogram. Recommendation Routine screening mammogram of both breasts in 1 year (for women over age 40). This patient's Lifetime Breast Cancer Risk is estimated at 10.3 %. This mammogram was interpreted with the aid of an FDA-approved computer-aided dectection system. Electronically Signed By: Krishna Art MD 12/22/19 [id number]
== END ==
LOC: M WHC 12:16
PROVIDERS: ATTEND Nurse Practitioner Family
DX: Z12.31 Encounter for screening mammogram for malignant neoplasm of breast (principal)

== ENCOUNTER → 2020-01-01 | Outpatient (REF) | payer BC ==
[2020-01-01 19:19] LABS: INFLUENZA A AMPLIFICATION NEGATIVE (NEGATIVE); INFLUENZA B AMPLIFICATION NEGATIVE (NEGATIVE)
== END ==
LOC: M LAB REF 18:42
PROVIDERS: ATTEND Physician Assistant Medical
DX: R50.9 Fever, unspecified (principal)

== ENCOUNTER → 2020-01-29 | Day surgery (SDC) | payer BC ==
[~2020-01-29] VITALS: Ht 172.7 cm; Wt 122.4 kg
[~2020-01-29] MED LIST changes: +AMOX875T PO; +LIDOCAINE 2% INJ 100 MG/5 ML SDV (FOR ANES.) As Ordered ONE; +NS 1,000 ML IV ONE; +propofoL 200 MG/20 ML VIAL As Ordered ONE
--- NOTE | 2020-01-29 14:10 | ROOR ---
Patient Name: Ann Kitchen Procedure Date: 01/29/2020 1:39 PM Date of : 1960 Age: 59 Room: [facility] Gender: Female Note Status: Finalized Procedure: Colonoscopy Indications: Screening for colorectal malignant neoplasm Providers: Fitz VALENTINE MD Referring MD: Lana Mcfadden NP Requesting Provider: Medicines: Monitored Anesthesia Care Complications: No immediate complications. Procedure: Pre-Anesthesia Assessment: - The heart rate, respiratory rate, oxygen saturations, blood pressure, adequacy of pulmonary ventilation, and response to care were monitored throughout the procedure. The Colonoscope was introduced through the anus and advanced to the terminal ileum, with identification of the appendiceal orifice and IC valve. The colonoscopy was performed without difficulty. The patient tolerated the procedure well. The quality of the bowel preparation was good. Findings: Skin tags were found on perianal exam. A 5 mm polyp was found in the rectum. The polyp was sessile. The polyp was removed with a cold snare. Resection and retrieval were complete. There was a lipoma, in the descending colon. Internal hemorrhoids were found during retroflexion. The hemorrhoids were medium-sized. The exam was otherwise without abnormality on direct and retroflexion views. Impression: - Perianal skin tags found on perianal exam. - One 5 mm polyp (adenomatous) in the rectum, removed with a cold snare. Resected and retrieved. - Small Lipoma x 2 in the descending colon. - Internal hemorrhoids. - The examination was otherwise normal on direct and retroflexion views. Recommendation: - Telephone endoscopist for pathology results in 2 weeks. - If the pathology report reveals adenomatous tissue, then repeat the colonoscopy for surveillance in 5 years. - If the pathology report indicates hyperplastic polyp, then repeat colonoscopy for screening purposes in 10 years. Fitz Valentine MD Fitz VALENTINE MD 01/29/2020 2:10:05 PM Electronically signed by Fitz VALENTINE MD Number of Addenda: 0 Note Initiated On: 01/29/2020 1:39 PM Estimated Blood Loss: Estimated blood loss: none.
[2020-01-29 14:40] VITALS: BP 124/59
== END | disposition home or self-care (01) ==
LOC: M OPP 11:41
PROVIDERS: ATTEND Internal Medicine Gastroenterology
DX: Z12.11 Encounter for screening for malignant neoplasm of colon (principal); K63.5 Polyp of colon; D17.5 Benign lipomatous neoplasm of intra-abdominal organs; K64.8 Other hemorrhoids; K64.4 Residual hemorrhoidal skin tags; J44.9 Chronic obstructive pulmonary disease, unspecified; E11.9 Type 2 diabetes mellitus without complications; Z79.2 Long term (current) use of antibiotics; Z79.82 Long term (current) use of aspirin; Z79.84 Long term (current) use of oral hypoglycemic drugs; Z79.899 Other long term (current) drug therapy

== ENCOUNTER → 2020-08-03 | Outpatient (CLI) | payer BC ==
[~2020-08-03] MED LIST changes: -ALL10TAB29; -ASPI81TA85 PO; +ASPI81TA86 PO; +CETI-24; -LIDOCAINE 2% INJ 100 MG/5 ML SDV (FOR ANES.) As Ordered ONE; -NS 1,000 ML IV ONE; -propofoL 200 MG/20 ML VIAL As Ordered ONE
[2020-08-03 14:03] LABS: ALBUMIN 3.6 GM/DL (3.2-5.2); ALT/SGPT 27 U/L (12-78); BILIRUBIN,TOTAL 0.3 MG/DL (0.2-1.0); BLOOD UREA NITROGEN 15 MG/DL (7-18); CALCIUM LEVEL 9.4 MG/DL (8.8-10.2); CARBON DIOXIDE LEVEL 26 MEQ/L (21-32); CHLORIDE LEVEL 107 MEQ/L (98-107); CHOLESTEROL LEVEL 163 MG/DL (<200); CHOLESTEROL RISK RATIO 3.075 (<5); CREATININE FOR GFR 0.76 MG/DL (0.55-1.30); GLOMERULAR FILTRATION RATE > 60.0 (>45); GLUCOSE, FASTING 124 MG/DL (70-100); HDL CHOLESTEROL 53 MG/DL (>40); LDL CHOLESTEROL 96 MG/DL (<100); NON-HDL-C 110 MG/DL; POTASSIUM SERUM 4.3 MEQ/L (3.5-5.1); SODIUM LEVEL 140 MEQ/L (136-145); TOTAL PROTEIN 7.5 GM/DL (6.4-8.2); TRIGLYCERIDES LEVEL 71 MG/DL (<150)
[2020-08-03 14:11] LABS: TOTAL 25(OH) VITAMIN D 36.6 NG/ML (30.0-100.0)
[2020-08-03 16:00] LABS: HEMOGLOBIN A1c 6.7 %
[2020-08-03 19:35] LABS: CREATININE, URINE 50.9 MG/DL; MALB URINE SIEMENS 7.8 MG/L; MAU/CREAT RATIO 15.3 MCG/MG (0.0-30.0)
== END ==
LOC: M PLALAB 11:23
PROVIDERS: ATTEND Nurse Practitioner Family
DX: E55.9 Vitamin D deficiency, unspecified (principal); E11.9 Type 2 diabetes mellitus without complications; E78.5 Hyperlipidemia, unspecified; I10 Essential (primary) hypertension

== ENCOUNTER → 2021-07-05 | Outpatient (CLI) | payer BC ==
[~2021-07-05] MED LIST changes: -LISI-538 PO; +LISI20TA33 PO; +OMEP40CA4 PO; -OMEP40CA97 PO
[2021-07-05 14:23] LABS: ALBUMIN 3.8 GM/DL (3.2-5.2); ALT/SGPT 34 U/L (12-78); BILIRUBIN,TOTAL 0.3 MG/DL (0.2-1.0); BLOOD UREA NITROGEN 15 MG/DL (7-18); CALCIUM LEVEL 9.8 MG/DL (8.8-10.2); CARBON DIOXIDE LEVEL 26 MEQ/L (21-32); CHLORIDE LEVEL 108 MEQ/L (98-107); CREATININE FOR GFR 0.73 MG/DL (0.55-1.30); GLOMERULAR FILTRATION RATE > 60.0 (>45); GLUCOSE, FASTING 135 MG/DL (70-100); POTASSIUM SERUM 4.4 MEQ/L (3.5-5.1); SODIUM LEVEL 142 MEQ/L (136-145); TOTAL PROTEIN 7.3 GM/DL (6.4-8.2)
== END ==
LOC: M PLALAB 11:06
PROVIDERS: ATTEND Nurse Practitioner Family
DX: E11.9 Type 2 diabetes mellitus without complications (principal)

== ENCOUNTER 2021-07-21 13:00 | Emergency (ER) | payer BC ==
[~2021-07-21] VITALS: Ht 172.7 cm; Wt 123.1 kg
[2021-07-21] MEDS ORDERED: ADENOSINE 6MG/2ML INJECTION (J0153) As Ordered ONE (13:31)
[2021-07-21] MEDS ORDERED: atenoloL 50 MG TAB PO ONE (13:35)
[2021-07-21 13:50] LABS: BASO # 0.1 10^3/uL (0.0-0.2); EOS # 0.1 10^3/uL (0.0-0.5); EOS % 1.6 % (0.0-3.0); HEMATOCRIT 41.9 % (36.0-47.0); HEMOGLOBIN 12.5 g/dl (12.0-15.5); LYMPH # 1.2 10^3/uL (1.5-5.0); LYMPH % 17.4 % (24.0-44.0); MEAN CORPUSCULAR HEMOGLOBIN 23.6 pg (27.0-33.0); MEAN CORPUSCULAR HGB CONC 29.8 g/dl (32.0-36.5); MEAN CORPUSCULAR VOLUME 79.2 fl (80.0-96.0); MONO # 0.7 10^3/uL (0.0-0.8); MONO % 10.1 % (2.0-8.0); NEUTROPHILS # 4.9 10^3/uL (1.5-8.5); NEUTROPHILS % 69.3 % (36.0-66.0); PLATELET COUNT, AUTOMATED 269 10^3/uL (150-450); RED BLOOD COUNT 5.29 10^6/uL (4.00-5.40)
[2021-07-21] MEDS: METOPROLOL 5 MG/5 ML VIAL IV SCH ×3 (13:58→14:08)
[2021-07-21 14:08] VITALS: BP 114/60
[2021-07-21 14:11] LABS: INR 0.9; PROTHROMBIN TIME 12.6 SECONDS (12.7-14.5)
[2021-07-21 14:12] LABS: PARTIAL THROMBOPLASTIN TIME 31.9 SECONDS (25.9-37.0)
--- NOTE | 2021-07-21 14:22 | REP ---
INDICATION: CHEST PAIN COMPARISON: 02/03/2019 TECHNIQUE: Portable AP view of the chest FINDINGS: The mediastinum and cardiac silhouette are stable and within normal limits for portable technique. The lung pepper demonstrate chronic appearing changes without obvious acute focal consolidation, effusion, or pneumothorax. Skeletal structures are intact. IMPRESSION: Chronic appearing changes. No obvious acute consolidation or effusion. <Electronically signed by Marvin Ochoa > 07/21/21 [id number]
[2021-07-21 14:30] LABS: ALBUMIN 3.6 GM/DL (3.2-5.2); ALT/SGPT 30 U/L (12-78); BILIRUBIN,DIRECT 0.1 MG/DL (0.0-0.2); BILIRUBIN,TOTAL 0.4 MG/DL (0.2-1.0); BLOOD UREA NITROGEN 13 MG/DL (7-18); CALCIUM LEVEL 9.3 MG/DL (8.8-10.2); CARBON DIOXIDE LEVEL 23 MEQ/L (21-32); CHLORIDE LEVEL 110 MEQ/L (98-107); CPK CREATINE PHOSPHOKINASE 136 U/L (26-192); CREATININE FOR GFR 0.97 MG/DL (0.55-1.30); FREE T4 1.03 NG/DL (0.76-1.46); GLOMERULAR FILTRATION RATE > 60.0 (>45); GLUCOSE, FASTING 213 MG/DL (70-100); LIPASE 271 U/L (73-393); MB/CK RELATIVE INDEX 2.94 (< OR =4); NT-PRO BNP 259 PG/ML (<125); POTASSIUM SERUM 4.6 MEQ/L (3.5-5.1); SODIUM LEVEL 140 MEQ/L (136-145); TOTAL PROTEIN 7.3 GM/DL (6.4-8.2); TROPONIN I < 0.02 NG/ML (< 0.10)
[2021-07-21] MEDS ORDERED: ISOVUE-370 76% 100ML VIAL As Ordered ONE (14:47)
--- NOTE | 2021-07-21 15:16 | REP ---
INDICATION: sudden sob, a flutter ro pe COMPARISON: 02/14/2019 TECHNIQUE: Axial contrast enhanced images from the thoracic inlet to the upper abdomen using pulmonary embolus technique with multiplanar re-formations. 75 ml Isovue 370 intravenous contrast material administered without complication. This CT examination was performed using the following dose reduction techniques: Automated exposure control, adjustment of mA and/or kv according to the patient's size, and use of iterative reconstruction technique. FINDINGS: Satisfactory enhancement of the pulmonary vasculature is achieved and no filling defects are identified to suggest pulmonary embolus. The bilateral lung pepper are well aerated and clear without consolidation, pleural effusion or pneumothorax. Tracheobronchial tree is patent. No obvious suspicious nodule or mass lesion is identified. No adenopathy noted. Chronic stable mild cardiomegaly. No pericardial effusion. There is moderate chronic ectasia of the distal thoracic aortic arch measuring 3.6 cm maximal diameter tapering to normal descending thoracic aorta measuring 2.3 cm maximal diameter. Surrounding musculoskeletal structures intact IMPRESSION: No evidence for pulmonary embolus. No acute mediastinal or pleural parenchymal process. <Electronically signed by Marvin Ochoa > 07/21/21 [id number]
[2021-07-21] MEDS ORDERED: DIGOXIN 0.25 MG TAB PO STA (15:48)
[2021-07-21] MEDS ORDERED: APIXABAN 5 MG TAB (ELIQUIS) PO ONE (15:50)
[2021-07-21 16:02] LABS: RSV AMPLIFICATION NEGATIVE (NEGATIVE)
[2021-07-21] MEDS ORDERED: DIGO0.253 PO (16:31)
[2021-07-21] MEDS ORDERED: ATEN50TA2 PO (16:31)
[2021-07-21] MEDS ORDERED: ELIQ5TAB PO (16:32)
[2021-07-21 19:26] LABS: CK-MB VALUE MASS 3.5 NG/ML (<3.6); MB/CK RELATIVE INDEX 3.1 (< OR =4); TROPONIN I 0.03 NG/ML (< 0.10)
--- NOTE | 2021-07-21 19:27 | ECGEPIP ---
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
--- NOTE | 2021-07-21 19:32 | ECGEPIP ---
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
[2021-07-21 20:57] VITALS: BP 120/59
--- NOTE | 2021-07-23 08:46 | ECGEPIP ---
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
== END 2021-07-21 21:05 | disposition home or self-care (01) ==
LOC: M ED 13:00
DX: I48.92 Unspecified atrial flutter (principal); E11.9 Type 2 diabetes mellitus without complications; I10 Essential (primary) hypertension; J44.9 Chronic obstructive pulmonary disease, unspecified; Z79.84 Long term (current) use of oral hypoglycemic drugs
CPT/HCPCS: 71045; 71275; 80048; 80076; 82550; 82553; 83690; 83880; 84439; 84443; 84484; 85025; 85610; 85730; 87631; 93005; 93041; 94760; 96374; 99285; Q9967

== ENCOUNTER 2021-08-01 14:52 | Outpatient (CLI) | payer BC ==
[2021-08-01] VITALS (7 sets, daily range): BP systolic 114–135; BP diastolic 55–62
[~2021-08-01] VITALS: Ht 172.7 cm; Wt 119.0 kg
[~2021-08-01 14:52] MED LIST changes: +ALBUTEROL 90 MCG/ACT 8GM HFA INHALER INH PRN; +ALBUTEROL SULFATE 2.5 MG/0.5 ML INH NEB SOLN INH PRN; +ATEN50TA2 PO; +DIGO0.253 PO; +ELIQ5TAB PO; +EPINEPHrine INJ 1 MG/ML 1ML AMP IM PRN; +diphenhydrAMINE 50MG/ML VIAL (J1200) IV PRN; +methylPREDNISolone 125MG 2ML VIAL IV PRN
[2021-08-01] MEDS ORDERED: NS 1,000 ML IV SCH (15:30)
[2021-08-01] MEDS ORDERED: CASIRIVIMAB/IMDEVIMAB 1,200 MG in NS 250 ML IV ONE (17:00)
== END 2021-08-01 18:46 | disposition home or self-care (01) ==
LOC: M OPCLI4PR 14:52 → M 4MAIN 14:57 → M OPCLI4PR 18:46
PROVIDERS: ATTEND Nurse Practitioner Family
DX: U07.1 COVID-19 (principal)

== ENCOUNTER → 2021-08-31 | Outpatient (CLI) | payer BC ==
[~2021-08-31] MED LIST changes: -ALBUTEROL 90 MCG/ACT 8GM HFA INHALER INH PRN; -ALBUTEROL SULFATE 2.5 MG/0.5 ML INH NEB SOLN INH PRN; -EPINEPHrine INJ 1 MG/ML 1ML AMP IM PRN; -diphenhydrAMINE 50MG/ML VIAL (J1200) IV PRN; -methylPREDNISolone 125MG 2ML VIAL IV PRN
[2021-08-31 15:47] LABS: HEMATOCRIT 37.9 % (36.0-47.0); HEMOGLOBIN 11.2 g/dl (12.0-15.5); MEAN CORPUSCULAR HEMOGLOBIN 23.9 pg (27.0-33.0); MEAN CORPUSCULAR HGB CONC 29.6 g/dl (32.0-36.5); MEAN CORPUSCULAR VOLUME 80.8 fl (80.0-96.0); PLATELET COUNT, AUTOMATED 297 10^3/uL (150-450); RED BLOOD COUNT 4.69 10^6/uL (4.00-5.40); WHITE BLOOD COUNT 6.1 10^3/uL (4.0-10.0)
[2021-08-31 15:57] LABS: ALBUMIN 3.3 GM/DL (3.2-5.2); ALT/SGPT 53 U/L (12-78); BILIRUBIN,TOTAL 0.8 MG/DL (0.2-1.0); BLOOD UREA NITROGEN 10 MG/DL (7-18); CALCIUM LEVEL 9.2 MG/DL (8.8-10.2); CARBON DIOXIDE LEVEL 27 MEQ/L (21-32); CHLORIDE LEVEL 109 MEQ/L (98-107); CHOLESTEROL LEVEL 123 MG/DL (<200); CREATININE FOR GFR 0.79 MG/DL (0.55-1.30); FERRITIN 16 NG/ML (8-252); GLOMERULAR FILTRATION RATE > 60.0 (>45); GLUCOSE, FASTING 102 MG/DL (70-100); HDL CHOLESTEROL 43 MG/DL (>40); LDL CHOLESTEROL 60 MG/DL (<100); NON-HDL-C 80 MG/DL; POTASSIUM SERUM 4.3 MEQ/L (3.5-5.1); SODIUM LEVEL 142 MEQ/L (136-145); TOTAL PROTEIN 6.9 GM/DL (6.4-8.2); TRIGLYCERIDES LEVEL 98 MG/DL (<150)
[2021-08-31 16:05] LABS: HEMOGLOBIN A1c 6.7 %
[2021-08-31 16:22] LABS: MALB URINE SIEMENS 35.9 MG/L; MAU/CREAT RATIO 35.1 MCG/MG (0.0-30.0)
--- NOTE | 2021-09-01 06:05 | REP ---
INDICATION: OTHER FORMS OF DYSPNEA COMPARISON: 07/21/2021 TECHNIQUE: PA and lateral. FINDINGS: Cardiomegaly with increased pulmonary vasculature, cephalization, and increased interstitial markings as well as mild bibasilar atelectasis and suspected early small pleural effusions. Findings suggest early pulmonary vascular congestion and should be correlated clinically. Underlying pneumonitis/bronchitis cannot be excluded. No pneumothorax. IMPRESSION: Findings most compatible with early pulmonary vascular congestion. Differential diagnosis less likely including pneumonitis/bronchitis. <Electronically signed by Marvin Ochoa > 09/01/21 0601
== END ==
LOC: M PLALAB 13:07
PROVIDERS: ATTEND Nurse Practitioner Family
DX: R06.09 Other forms of dyspnea (principal); B94.8 Sequelae of other specified infectious and parasitic diseases; E11.65 Type 2 diabetes mellitus with hyperglycemia; E78.5 Hyperlipidemia, unspecified; D50.9 Iron deficiency anemia, unspecified; E55.9 Vitamin D deficiency, unspecified; I51.7 Cardiomegaly; R91.8 Other nonspecific abnormal finding of lung field

== ENCOUNTER → 2022-02-28 | Outpatient (CLI) | payer BC ==
[2022-02-28 14:05] LABS: HEMATOCRIT 43.6 % (36.0-47.0); HEMOGLOBIN 13.5 g/dl (12.0-15.5); MEAN CORPUSCULAR VOLUME 87.2 fl (80.0-96.0); PLATELET COUNT, AUTOMATED 268 10^3/uL (150-450); WHITE BLOOD COUNT 5.3 10^3/uL (4.0-10.0)
[2022-02-28 14:47] LABS: CREATININE, URINE < 13.0 MG/DL; MALB URINE SIEMENS < 5.0 MG/L
[2022-02-28 15:07] LABS: ALBUMIN 3.7 GM/DL (3.2-5.2); ALT/SGPT 35 U/L (12-78); BILIRUBIN,TOTAL 0.4 MG/DL (0.2-1.0); BLOOD UREA NITROGEN 23 MG/DL (7-18); CALCIUM LEVEL 9.6 MG/DL (8.8-10.2); CARBON DIOXIDE LEVEL 29 MEQ/L (21-32); CHLORIDE LEVEL 109 MEQ/L (98-107); CREATININE FOR GFR 0.85 MG/DL (0.55-1.30); FERRITIN 11 NG/ML (8-252); GLOMERULAR FILTRATION RATE > 60.0 (>45); GLUCOSE, FASTING 103 MG/DL (70-100); POTASSIUM SERUM 4.4 MEQ/L (3.5-5.1); SODIUM LEVEL 143 MEQ/L (136-145); TOTAL 25(OH) VITAMIN D 38.2 NG/ML (30.0-100.0); TOTAL PROTEIN 7.5 GM/DL (6.4-8.2)
[2022-02-28 16:10] LABS: HEMOGLOBIN A1c 7.1 %
== END ==
LOC: M PLALAB 10:49
PROVIDERS: ATTEND Physician Assistant Medical
DX: E11.65 Type 2 diabetes mellitus with hyperglycemia (principal); D50.9 Iron deficiency anemia, unspecified; E55.9 Vitamin D deficiency, unspecified

== ENCOUNTER → 2022-04-26 | Outpatient (CLI) | payer BC | LOC: M WHC 11:28 | PROVIDERS: ATTEND Physician Assistant Medical | DX: Z12.31 Encounter for screening mammogram for malignant neoplasm of breast (principal); M81.0 Age-related osteoporosis without current pathological fracture ==

== ENCOUNTER → 2022-08-03 | Outpatient (CLI) | payer BC ==
[2022-08-03 15:19] LABS: CHOLESTEROL RISK RATIO 3.352 (<5)
[2022-08-03 16:01] LABS: HEMOGLOBIN A1c 6.9 %
== END ==
LOC: M PLALAB 11:05
PROVIDERS: ATTEND Physician Assistant Medical
DX: E11.65 Type 2 diabetes mellitus with hyperglycemia (principal); I10 Essential (primary) hypertension; E78.5 Hyperlipidemia, unspecified

== ENCOUNTER → 2022-12-04 | Outpatient (CLI) | payer BC ==
[2022-12-04 13:41] LABS: BASO # 0.1 10^3/uL (0.0-0.2); BASO % 1.4 % (0.0-1.0); EOS # 0.3 10^3/uL (0.0-0.5); EOS % 4.9 % (0.0-3.0); HEMATOCRIT 46.3 % (36.0-47.0); HEMOGLOBIN 14.5 g/dl (12.0-15.5); LYMPH # 1.6 10^3/uL (1.5-5.0); LYMPH % 22.5 % (24.0-44.0); MEAN CORPUSCULAR HEMOGLOBIN 29.4 pg (27.0-33.0); MEAN CORPUSCULAR HGB CONC 31.3 g/dl (32.0-36.5); MEAN CORPUSCULAR VOLUME 93.7 fl (80.0-96.0); MONO # 0.6 10^3/uL (0.0-0.8); NEUTROPHILS # 4.3 10^3/uL (1.5-8.5); NEUTROPHILS % 61.8 % (36.0-66.0); PLATELET COUNT, AUTOMATED 261 10^3/uL (150-450); RED BLOOD COUNT 4.94 10^6/uL (4.00-5.40)
[2022-12-04 14:01] LABS: C REACTIVE PROTEIN QUANTITATIV < 0.40 MG/DL (<1.0)
[2022-12-04 14:02] LABS: ERYTHROCYTE SEDIMENTATION RATE 50 mm/hr (0-30); HEMOGLOBIN A1c 7.9 % (4.0-6.0)
[2022-12-04 14:04] LABS: ALBUMIN 3.8 G/DL (3.2-5.2); ALKALINE PHOSPHATASE 107 U/L (46-116); ALT/SGPT 27 U/L (7.0-40); AST/SGOT 24 U/L (<34); BILIRUBIN,TOTAL 0.4 MG/DL (0.3-1.2); BLOOD UREA NITROGEN 25 MG/DL (9-23); CARBON DIOXIDE LEVEL 28 MMOL/L (20-31); CHLORIDE LEVEL 103 MMOL/L (98-107); CREATININE FOR GFR 0.87 MG/DL (0.55-1.30); GLOMERULAR FILTRATION RATE > 60.0 (>45); GLUCOSE, FASTING 136 MG/DL (74-106); POTASSIUM SERUM 4.8 MMOL/L (3.5-5.1); SODIUM LEVEL 140 MMOL/L (136-145); TOTAL PROTEIN 7.6 G/DL (5.7-8.2)
== END ==
LOC: M PLAIMG 11:26
PROVIDERS: ATTEND Physician Assistant Medical
DX: R05.2 Subacute cough (principal); E11.65 Type 2 diabetes mellitus with hyperglycemia

== ENCOUNTER → 2023-01-22 | Outpatient (CLI) | payer BC ==
[2023-01-22 16:37] LABS: HEMOGLOBIN A1c 7.5 % (4.0-6.0)
[2023-01-22 16:40] LABS: BASO # 0.1 10^3/uL (0.0-0.2); BASO % 1.2 % (0.0-1.0); EOS # 0.2 10^3/uL (0.0-0.5); EOS % 4.3 % (0.0-3.0); HEMATOCRIT 42.2 % (36.0-47.0); HEMOGLOBIN 12.9 g/dl (12.0-15.5); LYMPH # 1.5 10^3/uL (1.5-5.0); LYMPH % 30.2 % (24.0-44.0); MEAN CORPUSCULAR HEMOGLOBIN 28.8 pg (27.0-33.0); MEAN CORPUSCULAR HGB CONC 30.6 g/dl (32.0-36.5); MEAN CORPUSCULAR VOLUME 94.2 fl (80.0-96.0); MONO # 0.6 10^3/uL (0.0-0.8); MONO % 11.7 % (2.0-8.0); NEUTROPHILS # 2.6 10^3/uL (1.5-8.5); NEUTROPHILS % 52.2 % (36.0-66.0); PLATELET COUNT, AUTOMATED 252 10^3/uL (150-450); RED BLOOD COUNT 4.48 10^6/uL (4.00-5.40); WHITE BLOOD COUNT 5.1 10^3/uL (4.0-10.0)
[2023-01-22 17:16] LABS: ALBUMIN 3.7 G/DL (3.2-5.2); ALKALINE PHOSPHATASE 93 U/L (46-116); ALT/SGPT 32 U/L (7.0-40); AST/SGOT 21 U/L (<34); BILIRUBIN,TOTAL 0.4 MG/DL (0.3-1.2); BLOOD UREA NITROGEN 20 MG/DL (9-23); CALCIUM LEVEL 9.6 MG/DL (8.3-10.6); CARBON DIOXIDE LEVEL 28 MMOL/L (20-31); CHLORIDE LEVEL 104 MMOL/L (98-107); CPK CREATINE PHOSPHOKINASE 91 U/L (34-145); GLUCOSE, FASTING 151 MG/DL (74-106); POTASSIUM SERUM 4.3 MMOL/L (3.5-5.1); SODIUM LEVEL 140 MMOL/L (136-145); TOTAL PROTEIN 6.9 G/DL (5.7-8.2)
[2023-01-22 20:22] LABS: CREATININE FOR GFR 0.83 MG/DL (0.55-1.30); GLOMERULAR FILTRATION RATE > 60.0 (>45)
== END ==
LOC: M PLALAB 11:21
PROVIDERS: ATTEND Physician Assistant Medical
DX: E11.65 Type 2 diabetes mellitus with hyperglycemia (principal); I10 Essential (primary) hypertension; E78.5 Hyperlipidemia, unspecified; I50.9 Heart failure, unspecified

== ENCOUNTER → 2023-09-11 | Outpatient (CLI) | payer BC ==
[2023-09-11 14:21] LABS: BASO # 0.1 10^3/uL (0.0-0.2); EOS # 0.3 10^3/uL (0.0-0.5); EOS % 4.5 % (0.0-3.0); HEMATOCRIT 39.3 % (36.0-47.0); LYMPH % 34.9 % (24.0-44.0); MEAN CORPUSCULAR HEMOGLOBIN 27.7 pg (27.0-33.0); MEAN CORPUSCULAR HGB CONC 30.5 g/dl (32.0-36.5); MEAN CORPUSCULAR VOLUME 90.8 fl (80.0-96.0); MONO # 0.6 10^3/uL (0.0-0.8); NEUTROPHILS # 2.8 10^3/uL (1.5-8.5); NEUTROPHILS % 48.3 % (36.0-66.0); PLATELET COUNT, AUTOMATED 269 10^3/uL (150-450); RED BLOOD COUNT 4.33 10^6/uL (4.00-5.40); WHITE BLOOD COUNT 5.8 10^3/uL (4.0-10.0)
[2023-09-11 14:51] LABS: CREATININE, URINE 40.1 MG/DL; MAU/CREAT RATIO 12.4 MCG/MG (0.0-30.0)
[2023-09-11 14:53] LABS: TOTAL 25(OH) VITAMIN D 43.3 NG/ML (20.0-100.0)
[2023-09-11 14:55] LABS: ALBUMIN 3.5 G/DL (3.2-5.2); ALKALINE PHOSPHATASE 89 U/L (46-116); ALT/SGPT 26 U/L (7.0-40); AST/SGOT 17 U/L (<34); BILIRUBIN,TOTAL 0.4 MG/DL (0.3-1.2); BLOOD UREA NITROGEN 21 MG/DL (9-23); CALCIUM LEVEL 9.7 MG/DL (8.3-10.6); CARBON DIOXIDE LEVEL 28 MMOL/L (20-31); CHLORIDE LEVEL 107 MMOL/L (98-107); CHOLESTEROL LEVEL 178 MG/DL (<200); CHOLESTEROL RISK RATIO 3.47 (<5); CREATININE FOR GFR 0.93 MG/DL (0.55-1.30); GLOMERULAR FILTRATION RATE > 60.0 (>45); GLUCOSE, FASTING 139 MG/DL (74-106); HDL CHOLESTEROL 51.2 MG/DL (>40); LDL CHOLESTEROL 97.2 MG/DL (<100); NON-HDL-C 126.8 MG/DL; POTASSIUM SERUM 4.6 MMOL/L (3.5-5.1); PTH INTACT 86.7 PG/ML (18.5-88.0); SODIUM LEVEL 144 MMOL/L (136-145); TOTAL PROTEIN 6.7 G/DL (5.7-8.2); TRIGLYCERIDES LEVEL 148 MG/DL (<150)
== END ==
LOC: M PLALAB 08:43
PROVIDERS: ATTEND Physician Assistant Medical
DX: E78.5 Hyperlipidemia, unspecified (principal); E55.9 Vitamin D deficiency, unspecified; I10 Essential (primary) hypertension; E11.9 Type 2 diabetes mellitus without complications; I42.1 Obstructive hypertrophic cardiomyopathy

== ENCOUNTER 2023-11-02 15:05 | Emergency (ER) | payer BC, MEDICARE ==
[~2023-11-02] VITALS: Ht 170.2 cm; Wt 119.0 kg
[2023-11-02] MEDS ORDERED: KETOROLAC 60MG 2ML VIAL IM ONE (17:55)
[2023-11-02] MEDS ORDERED: KETO10TAB PO (17:59)
[2023-11-02 18:12] VITALS: BP 127/57; TEMP 97.8; O2SAT 96
== END 2023-11-02 18:33 | disposition home or self-care (01) ==
LOC: M ED 15:05
DX: S46.211A Strain of muscle, fascia and tendon of other parts of biceps, right arm, initial encounter (principal); I10 Essential (primary) hypertension; E78.5 Hyperlipidemia, unspecified; K21.9 Gastro-esophageal reflux disease without esophagitis; J44.9 Chronic obstructive pulmonary disease, unspecified; E11.9 Type 2 diabetes mellitus without complications; Z86.79 Personal history of other diseases of the circulatory system; Z79.52 Long term (current) use of systemic steroids; Z79.811 Long term (current) use of aromatase inhibitors; Z79.4 Long term (current) use of insulin; Z79.899 Other long term (current) drug therapy
CPT/HCPCS: 73030; 96372; 99283; J1885

== ENCOUNTER → 2024-02-07 | Outpatient (CLI) | payer BC, MEDICARE ==
[~2024-02-07] MED LIST changes: +KETO10TAB PO
[2024-02-07 15:52] LABS: BASO # 0.1 10^3/uL (0.0-0.2); EOS # 0.2 10^3/uL (0.0-0.5); EOS % 3.1 % (0.0-3.0); HEMATOCRIT 43.3 % (36.0-47.0); HEMOGLOBIN 14.1 g/dl (12.0-15.5); LYMPH # 1.5 10^3/uL (1.5-5.0); LYMPH % 23.5 % (24.0-44.0); MEAN CORPUSCULAR HEMOGLOBIN 29.4 pg (27.0-33.0); MEAN CORPUSCULAR HGB CONC 32.6 g/dl (32.0-36.5); MEAN CORPUSCULAR VOLUME 90.2 fl (80.0-96.0); MONO # 0.6 10^3/uL (0.0-0.8); MONO % 10.1 % (2.0-8.0); NEUTROPHILS # 3.8 10^3/uL (1.5-8.5); NEUTROPHILS % 61.8 % (36.0-66.0); PLATELET COUNT, AUTOMATED 224 10^3/uL (150-450); WHITE BLOOD COUNT 6.2 10^3/uL (4.0-10.0)
== END ==
LOC: M LAB 12:52 → M PLALAB 12:52
PROVIDERS: ATTEND Physician Assistant Medical
DX: D50.0 Iron deficiency anemia secondary to blood loss (chronic) (principal)

== ENCOUNTER → 2024-03-26 | Outpatient (CLI) | payer BC, MEDICARE | LOC: M PLAIMG 13:44 | PROVIDERS: ATTEND Physician Assistant | DX: I42.1 Obstructive hypertrophic cardiomyopathy (principal); I08.3 Combined rheumatic disorders of mitral, aortic and tricuspid valves ==

== ENCOUNTER → 2024-03-31 | Outpatient (CLI) | payer BC, MEDICARE ==
[2024-03-31 15:37] LABS: BASO # 0.1 10^3/uL (0.0-0.2); EOS # 0.2 10^3/uL (0.0-0.5); EOS % 2.7 % (0.0-3.0); HEMATOCRIT 44.4 % (36.0-47.0); HEMOGLOBIN 14.4 g/dl (12.0-15.5); LYMPH # 1.5 10^3/uL (1.5-5.0); LYMPH % 23.2 % (24.0-44.0); MEAN CORPUSCULAR HEMOGLOBIN 30.7 pg (27.0-33.0); MEAN CORPUSCULAR HGB CONC 32.4 g/dl (32.0-36.5); MEAN CORPUSCULAR VOLUME 94.7 fl (80.0-96.0); MONO # 0.6 10^3/uL (0.0-0.8); MONO % 9.6 % (2.0-8.0); NEUTROPHILS % 63.2 % (36.0-66.0); PLATELET COUNT, AUTOMATED 225 10^3/uL (150-450); RED BLOOD COUNT 4.69 10^6/uL (4.00-5.40); WHITE BLOOD COUNT 6.3 10^3/uL (4.0-10.0)
[2024-03-31 15:58] LABS: HEMOGLOBIN A1c 9.2 % (4.0-6.0)
[2024-03-31 16:06] LABS: ALBUMIN 3.5 G/DL (3.2-5.2); BILIRUBIN,TOTAL 0.5 MG/DL (0.3-1.2); CALCIUM LEVEL 9.5 MG/DL (8.3-10.6); CREATININE FOR GFR 1.02 MG/DL (0.55-1.30); GLOMERULAR FILTRATION RATE 57.9 (>45); HDL CHOLESTEROL 48.3 MG/DL (>40); LDL CHOLESTEROL 113.9 MG/DL (<100); POTASSIUM SERUM 4.1 MMOL/L (3.5-5.1); TOTAL PROTEIN 6.9 G/DL (5.7-8.2)
[2024-03-31 16:07] LABS: FERRITIN 15.9 NG/ML (7.3-270.7)
== END ==
LOC: M PLALAB 12:07
PROVIDERS: ATTEND Physician Assistant Medical
DX: D50.9 Iron deficiency anemia, unspecified (principal); R19.7 Diarrhea, unspecified; E11.65 Type 2 diabetes mellitus with hyperglycemia; I50.9 Heart failure, unspecified

== ENCOUNTER 2024-04-17 11:41 | Outpatient (CLI) | payer BC, MEDICARE ==
[~2024-04-17] VITALS: Ht 172.7 cm; Wt 118.0 kg
[~2024-04-17 11:41] MED LIST changes: +ALBUTEROL SULFATE 2.5MG/0.5ML INH NEB SOLN INH PRN; +EPINEPHrine INJ 1 MG/ML 1ML AMP IM PRN; +diphenhydrAMINE 50MG/ML VIAL IV PRN; +methylPREDNISolone 125MG 2ML VIAL IV PRN
[2024-04-17] MEDS ORDERED: NS 1,000 ML IV SCH (12:00)
[2024-04-17 12:05] VITALS: BP 148/67; O2SAT 96
[2024-04-17] MEDS: ACETAMINOPHEN 650MG PO PRIOR TO INFUSION PO ONE (12:17)
[2024-04-17] MEDS: diphenhydrAMINE 25MG PO PRIOR TO INFUSION PO ONE (12:17)
[2024-04-17] MEDS: IRON SUCROSE 250 MG in NS 237.5 ML IV ONE (13:06)
[2024-04-17 14:58] VITALS: BP 154/72; O2SAT 97
== END 2024-04-17 15:00 | disposition home or self-care (01) ==
LOC: M INFU 11:41
PROVIDERS: ATTEND Physician Assistant Medical
DX: D50.9 Iron deficiency anemia, unspecified (principal)
CPT/HCPCS: 96365; J1756

== ENCOUNTER 2024-05-01 11:39 | Outpatient (CLI) | payer BC, MEDICARE ==
[~2024-05-01] VITALS: Ht 172.7 cm; Wt 118.2 kg
[~2024-05-01 11:39] MED LIST changes: +NS 1,000 ML IV SCH
[2024-05-01 12:00] VITALS: BP 131/62; O2SAT 97
[2024-05-01] MEDS: diphenhydrAMINE 25MG PO PRIOR TO INFUSION PO ONE (12:15)
[2024-05-01] MEDS: ACETAMINOPHEN 650MG PO PRIOR TO INFUSION PO ONE (12:15)
[2024-05-01] MEDS: IRON SUCROSE 250 MG in NS 237.5 ML IV ONE (12:23)
[2024-05-01 13:55] VITALS: BP 133/63; O2SAT 98
== END 2024-05-01 14:00 | disposition home or self-care (01) ==
LOC: M INFU 11:39
PROVIDERS: ATTEND Physician Assistant Medical
DX: D50.9 Iron deficiency anemia, unspecified (principal)
CPT/HCPCS: 96365; J1756

== ENCOUNTER 2024-05-08 11:25 | Outpatient (CLI) | payer BC, MEDICARE ==
[2024-05-08 11:25] VITALS: BP 148/96; O2SAT 98
[~2024-05-08 11:25] MED LIST changes: -NS 1,000 ML IV SCH
[2024-05-08] MEDS: diphenhydrAMINE 25MG CAP PO ONE (11:28)
[2024-05-08] MEDS: ACETAMINOPHEN TAB 650MG DOSE (2X325MG) PO ONE (11:28)
[2024-05-08] MEDS ORDERED: NS 1,000 ML IV SCH (11:30)
[2024-05-08] MEDS: IRON SUCROSE 250 MG in NS 237.5 ML IV ONE (12:10)
[2024-05-08 13:40] VITALS: BP 136/71; O2SAT 96
== END 2024-05-08 13:40 ==
LOC: M INFU 11:25
PROVIDERS: ATTEND Physician Assistant Medical
DX: D50.9 Iron deficiency anemia, unspecified (principal)
CPT/HCPCS: 96365; J1756

== ENCOUNTER → 2024-10-07 | Outpatient (CLI) | payer BC ==
[~2024-10-07] MED LIST changes: -ALBUTEROL SULFATE 2.5MG/0.5ML INH NEB SOLN INH PRN; -EPINEPHrine INJ 1 MG/ML 1ML AMP IM PRN; -diphenhydrAMINE 50MG/ML VIAL IV PRN; -methylPREDNISolone 125MG 2ML VIAL IV PRN
== END ==
LOC: M PLAIMG 12:48
PROVIDERS: ATTEND Physician Assistant
DX: I42.1 Obstructive hypertrophic cardiomyopathy (principal); I27.20 Pulmonary hypertension, unspecified; I31.39 Other pericardial effusion (noninflammatory); I08.3 Combined rheumatic disorders of mitral, aortic and tricuspid valves

== ENCOUNTER → 2024-10-23 | Outpatient (CLI) | payer BC, MEDICARE ==
[2024-10-23 10:50] LABS: BASO # 0.1 10^3/uL (0.0-0.2); BASO % 0.8 % (0.0-1.0); EOS # 0.2 10^3/uL (0.0-0.5); EOS % 3.5 % (0.0-3.0); HEMATOCRIT 41.4 % (36.0-47.0); HEMOGLOBIN 13.4 g/dl (12.0-15.5); LYMPH # 1.5 10^3/uL (1.5-5.0); LYMPH % 23.3 % (24.0-44.0); MEAN CORPUSCULAR HEMOGLOBIN 31.2 pg (27.0-33.0); MEAN CORPUSCULAR HGB CONC 32.4 g/dl (32.0-36.5); MEAN CORPUSCULAR VOLUME 96.5 fl (80.0-96.0); MONO # 0.6 10^3/uL (0.0-0.8); MONO % 8.6 % (2.0-8.0); NEUTROPHILS % 63.2 % (36.0-66.0); PLATELET COUNT, AUTOMATED 208 10^3/uL (150-450); RED BLOOD COUNT 4.29 10^6/uL (4.00-5.40); WHITE BLOOD COUNT 6.4 10^3/uL (4.0-10.0)
[2024-10-23 11:01] LABS: FERRITIN 65.9 NG/ML (7.3-270.7)
== END ==
LOC: M PLALAB 08:39
PROVIDERS: ATTEND Physician Assistant Medical
DX: D50.9 Iron deficiency anemia, unspecified (principal); R19.7 Diarrhea, unspecified

== ENCOUNTER 2024-12-01 12:48 | Emergency (ER) | payer BC ==
[~2024-12-01] VITALS: Ht 172.7 cm; Wt 114.9 kg
[2024-12-01] MEDS: FLUORESCEIN OPHTH 1MG STRIP OD ONE (17:15)
[2024-12-01] MEDS: PROPARACAINE 0.5% OPHTH SOL 15ML OD ONE (17:15)
[2024-12-01 18:20] VITALS: BP 153/75; TEMP 97.6; O2SAT 97
== END 2024-12-01 18:22 | disposition home or self-care (01) ==
LOC: M ED 12:48
DX: H53.8 Other visual disturbances (principal); I48.91 Unspecified atrial fibrillation; E11.9 Type 2 diabetes mellitus without complications; I11.0 Hypertensive heart disease with heart failure; K21.9 Gastro-esophageal reflux disease without esophagitis; Z79.82 Long term (current) use of aspirin; Z79.4 Long term (current) use of insulin; Z79.899 Other long term (current) drug therapy

== ENCOUNTER 2025-01-16 03:37 | Emergency (ER) | payer BC ==
[~2025-01-16] VITALS: Ht 172.7 cm; Wt 113.4 kg
[2025-01-16 06:41] LABS: BASO # 0.1 10^3/uL (0.0-0.2); BASO % 0.8 % (0.0-1.0); EOS # 0.2 10^3/uL (0.0-0.5); EOS % 2.6 % (0.0-3.0); HEMATOCRIT 36.6 % (36.0-47.0); LYMPH # 2.4 10^3/uL (1.5-5.0); LYMPH % 32.8 % (24.0-44.0); MEAN CORPUSCULAR HGB CONC 32.8 g/dl (32.0-36.5); MEAN CORPUSCULAR VOLUME 94.6 fl (80.0-96.0); MONO # 0.6 10^3/uL (0.0-0.8); MONO % 7.7 % (2.0-8.0); NEUTROPHILS # 4.1 10^3/uL (1.5-8.5); NEUTROPHILS % 55.7 % (36.0-66.0); PLATELET COUNT, AUTOMATED 248 10^3/uL (150-450); RED BLOOD COUNT 3.87 10^6/uL (4.00-5.40); WHITE BLOOD COUNT 7.4 10^3/uL (4.0-10.0)
[2025-01-16 06:55] LABS: INR 0.9; PROTHROMBIN TIME 12.5 SECONDS (12.5-14.5)
[2025-01-16 07:06] LABS: LIPASE 54 U/L (12-53)
[2025-01-16 07:07] LABS: CK-MB VALUE MASS 2.3 NG/ML (<3.6)
[2025-01-16 07:08] LABS: ALBUMIN 3.7 G/DL (3.2-5.2); ALKALINE PHOSPHATASE 97 U/L (35-104); ALT/SGPT 31 U/L (7.0-40); AST/SGOT 16 U/L (<34); BILIRUBIN,DIRECT < 0.1 MG/DL (<0.4); BILIRUBIN,TOTAL 0.3 MG/DL (0.3-1.2); CPK CREATINE PHOSPHOKINASE 95 U/L (34-145); MB/CK RELATIVE INDEX 2.42 (< OR =4); TOTAL PROTEIN 7.5 G/DL (5.7-8.2)
[2025-01-16 09:06] LABS: BLOOD UREA NITROGEN 23 MG/DL (9-23); CALCIUM LEVEL 9.4 MG/DL (8.3-10.6); CARBON DIOXIDE LEVEL 29 MMOL/L (20-31); CHLORIDE LEVEL 103 MMOL/L (98-107); CREATININE FOR GFR 0.95 MG/DL (0.55-1.30); GLOMERULAR FILTRATION RATE > 60.0 (>45); GLUCOSE, FASTING 128 MG/DL (74-106); POTASSIUM SERUM 4.3 MMOL/L (3.5-5.1); SODIUM LEVEL 142 MMOL/L (136-145)
[2025-01-16 09:25] VITALS: BP 128/73; TEMP 97.2; O2SAT 99
== END 2025-01-16 09:26 | disposition home or self-care (01) ==
LOC: EDBD 03:37 → M ED 03:37
DX: R07.89 Other chest pain (principal); E11.9 Type 2 diabetes mellitus without complications; I10 Essential (primary) hypertension; E78.5 Hyperlipidemia, unspecified; Z87.01 Personal history of pneumonia (recurrent); I42.9 Cardiomyopathy, unspecified; Z79.82 Long term (current) use of aspirin; Z79.4 Long term (current) use of insulin; Z79.899 Other long term (current) drug therapy

== ENCOUNTER → 2025-01-26 | Outpatient (CLI) | payer BC, MEDICARE | LOC: M WHC 12:26 | PROVIDERS: ATTEND Physician Assistant Medical | DX: Z12.31 Encounter for screening mammogram for malignant neoplasm of breast (principal); R92.313 Mammographic fatty tissue density, bilateral breasts ==

== ENCOUNTER → 2025-07-19 | Outpatient (REF) | payer BC, MEDICARE ==
[~2025-07-19] MED LIST changes: +GLIP-320 PO; -GLIP10TA18 PO
[2025-07-19 13:09] LABS: APPEARANCE, URINE HAZY (CLEAR); BACTERIA, URINE AUTO 1+ (NEGATIVE); BILIRUBIN, URINE AUTO NEGATIVE (NEGATIVE); BLOOD, URINE BLOOD NEGATIVE (NEGATIVE); GLUCOSE, URINE (UA) AUTO NEGATIVE (NEGATIVE); KETONE, URINE AUTO NEGATIVE (NEGATIVE); LEUKOCYTE ESTERASE, URINE AUTO 2+ (NEGATIVE); NITRITE, URINE AUTO NEGATIVE (NEGATIVE); PROTEIN, URINE AUTO NEGATIVE (NEGATIVE); RBC, URINE AUTO 4 /HPF (0-3); SPECIFIC GRAVITY URINE AUTO 1.010 (1.002-1.035); SQUAMOUS EPITHELIAL CELL UR AU 2 /HPF (0-6); UROBILINOGEN, URINE AUTO 0.2 mg/dL (0.0-2.0); WBC, URINE AUTO 103 /HPF (0-3)
== END ==
LOC: M LAB REF 12:02
PROVIDERS: ATTEND Physician Assistant Medical
DX: N39.0 Urinary tract infection, site not specified (principal)

== ENCOUNTER 2025-08-07 16:46 | Inpatient (IN) | payer BC, MEDICARE ==
[~2025-08-07] VITALS: Ht 172.7 cm; Wt 113.6 kg
[~2025-08-07 16:46] MED LIST changes: -CETI-24; +CETI-24 PO
[2025-08-07] MEDS: IPRATROPIUM 0.5 MG/ALBUTEROL 2.5 MG INH SOL UD 3 ML NEB ONE (17:41)
[2025-08-07 18:18] LABS: BASO # 0.0 10^3/uL (0.0-0.2); BASO % 0.2 % (0.0-1.0); EOS # 0.1 10^3/uL (0.0-0.5); EOS % 1.0 % (0.0-3.0); LYMPH # 0.8 10^3/uL (1.5-5.0); LYMPH % 10.0 % (24.0-44.0); MONO # 0.5 10^3/uL (0.0-0.8); MONO % 6.2 % (2.0-8.0); NEUTROPHILS # 6.9 10^3/uL (1.5-8.5); NEUTROPHILS % 82.2 % (36.0-66.0); PLATELET COUNT, AUTOMATED 211 10^3/uL (150-450)
[2025-08-07 18:44] LABS: ALT/SGPT 31.0 U/L (7.0-40); AST/SGOT 31.0 U/L (<34); CALCIUM LEVEL 9.5 MG/DL (8.3-10.6); CARBON DIOXIDE LEVEL 28.0 MMOL/L (20-31); CHLORIDE LEVEL 102.0 MMOL/L (98-107); CREATININE FOR GFR 0.97 MG/DL (0.55-1.30); GLOMERULAR FILTRATION RATE 64.1 (>45); POTASSIUM SERUM 4.7 MMOL/L (3.5-5.1); SODIUM LEVEL 141.0 MMOL/L (136-145)
[2025-08-07] MEDS ORDERED: GLUCAGON INJ 1 MG VIAL SC PRN (23:20)
[2025-08-07] MEDS ORDERED: IPRATROPIUM 0.5 MG/ALBUTEROL 2.5 MG INH SOL UD 3 ML NEB PRN (23:20)
[2025-08-07] MEDS ORDERED: GLUCOSE 4 GM CHEW PO PRN (23:20)
[2025-08-07] MEDS ORDERED: DEXTROSE 50% 50 ML SYRINGE IV PRN (23:20)
[2025-08-08 01:10] VITALS: BP 145/70; TEMP 97.5; O2SAT 91
[2025-08-08 01:23] VITALS: O2SAT 91
[2025-08-08] MEDS: IPRATROPIUM 0.5 MG/ALBUTEROL 2.5 MG INH SOL UD 3 ML NEB SCH (01:23)
[2025-08-08] MEDS ORDERED: ATOR1TAB19 PO (02:03)
[2025-08-08] MEDS ORDERED: ATEN50TA2 PO (02:03)
[2025-08-08] MEDS ORDERED: LISI40TA10 PO (02:03)
[2025-08-08] MEDS ORDERED: DULA3PEN SC (02:03)
[2025-08-08] MEDS ORDERED: SITA50TAB PO (02:03)
[2025-08-08] MEDS ORDERED: MULT1TAB8 PO (02:03)
[2025-08-08] MEDS ORDERED: ECOT81TA5 PO (02:03)
[2025-08-08] MEDS ORDERED: DISO10CA PO (02:08)
[2025-08-08] MEDS ORDERED: FURO20TA2 PO (02:08)
[2025-08-08] MEDS ORDERED: CVS500CA5 PO (02:08)
[2025-08-08] MEDS ORDERED: CO Q10CA PO (02:08)
[2025-08-08] MEDS ORDERED: HOME MED LIST COMPLETE! XX SCH (02:10)
[2025-08-08 05:30] VITALS: BP 100/44; TEMP 97.2; O2SAT 90
[2025-08-08] MEDS ORDERED: ALBUTEROL 90 MCG/ACT 8 GM HFA INHALER INH PRN (05:55)
[2025-08-08] MEDS: INSULIN LISPRO (NovoLOG) PER UNIT SC SCH ×2 (06:07→20:49)
[2025-08-08] MEDS ORDERED: AZITHROMYCIN INJ 500 MG, VIAL MATE ADAPTER 1 EACH in NS 250 ML IV SCH (07:10)
[2025-08-08] MEDS ORDERED: AZITHROMYCIN 250 MG TABLET PO SCH (09:00)
[2025-08-08] MEDS: OMEPRAZOLE 20MG CAP PO SCH (09:01)
[2025-08-08] MEDS: DOXYCYCLINE HYCLATE 100 MG TABLET PO SCH (09:01)
[2025-08-08] MEDS: ASPIRIN 81 MG ENTERIC TABLET PO SCH (09:01)
[2025-08-08] MEDS: CETIRIZINE 10 MG TAB PO SCH (09:01)
[2025-08-08] MEDS: ENOXAPARIN 40 MG/0.4 ML SYRINGE (J1650 PER 10MG) SC SCH (09:02)
[2025-08-08] MEDS: FUROSEMIDE 20 MG TAB PO SCH (09:04)
[2025-08-08 09:06] VITALS: O2SAT 90
[2025-08-08 10:42] LABS: ESTIMATED AVERAGE GLUCOSE 180.0 MG/DL (60-110)
[2025-08-08] MEDS ORDERED: **NOTE PATIENT COMMENT** MISC XX SCH (10:55)
[2025-08-08 12:00] VITALS: BP 128/55; TEMP 97; O2SAT 91
[2025-08-08] MEDS: guaiFENesin ER TABLET 600 MG TAB PO SCH (13:23)
[2025-08-08] MEDS: DISOPYRAMIDE 100 MG PO SCH (15:54)
[2025-08-08] MEDS: ATORVASTATIN 10 MG TAB PO SCH (20:50)
[2025-08-08 20:55] VITALS: BP 134/65; TEMP 97.2; O2SAT 91
[2025-08-09 04:11] VITALS: BP 129/64; TEMP 97; O2SAT 93
[2025-08-09 07:02] LABS: PLATELET COUNT, AUTOMATED 205 10^3/uL (150-450)
[2025-08-09 07:32] LABS: CALCIUM LEVEL 9.5 MG/DL (8.3-10.6); CARBON DIOXIDE LEVEL 27.0 MMOL/L (20-31); CHLORIDE LEVEL 106.0 MMOL/L (98-107); CREATININE FOR GFR 0.99 MG/DL (0.55-1.30); GLOMERULAR FILTRATION RATE 62.5 (>45); MAGNESIUM LEVEL 1.7 MG/DL (1.8-2.4); POTASSIUM SERUM 4.0 MMOL/L (3.5-5.1); SODIUM LEVEL 143.0 MMOL/L (136-145)
[2025-08-09 08:29] VITALS: BP 154/75
[2025-08-09] MEDS ORDERED: MUCI600T31 PO (11:34)
[2025-08-09] MEDS ORDERED: DOXY100T PO (11:34)
== END 2025-08-09 12:31 | disposition home or self-care (01) | DRG 144 ==
LOC: M ED 16:46 → M ED INP 23:17 → M MSPAV 08-08 01:05
PROVIDERS: ADMIT Student in an Organized Health Care Education/Training Program; ATTEND Family Medicine
DX: J20.4 Acute bronchitis due to parainfluenza virus (principal); J96.01 Acute respiratory failure with hypoxia; I48.92 Unspecified atrial flutter; Z85.89 Personal history of malignant neoplasm of other organs and systems; J45.909 Unspecified asthma, uncomplicated; E11.9 Type 2 diabetes mellitus without complications; I10 Essential (primary) hypertension; K21.9 Gastro-esophageal reflux disease without esophagitis; Z92.3 Personal history of irradiation; Z79.899 Other long term (current) drug therapy; Z79.82 Long term (current) use of aspirin

== ENCOUNTER → 2025-08-22 | Outpatient (REF) | payer BC, MEDICARE ==
[~2025-08-22] MED LIST changes: +ATOR1TAB19 PO; +CO Q10CA PO; +CVS500CA5 PO; +DISO10CA PO; +DOXY100T PO; +DULA3PEN SC; +ECOT81TA5 PO; +FURO20TA2 PO; +LISI40TA10 PO; +MUCI600T31 PO; +MULT1TAB8 PO; +SITA50TAB PO
[2025-08-22 14:39] LABS: APPEARANCE, URINE HAZY (CLEAR); BACTERIA, URINE AUTO NEGATIVE (NEGATIVE); BILIRUBIN, URINE AUTO NEGATIVE (NEGATIVE); BLOOD, URINE BLOOD 2+ (NEGATIVE); CALCIUM OXALATE CRYSTALS SMALL; GLUCOSE, URINE (UA) AUTO NEGATIVE (NEGATIVE); KETONE, URINE AUTO NEGATIVE (NEGATIVE); LEUKOCYTE ESTERASE, URINE AUTO 3+ (NEGATIVE); NITRITE, URINE AUTO NEGATIVE (NEGATIVE); PROTEIN, URINE AUTO NEGATIVE (NEGATIVE); RBC, URINE AUTO 73 /HPF (0-3); SPECIFIC GRAVITY URINE AUTO 1.009 (1.002-1.035); SQUAMOUS EPITHELIAL CELL UR AU 7 /HPF (0-6); UROBILINOGEN, URINE AUTO 0.2 mg/dL (0.0-2.0); WBC, URINE AUTO 33 /HPF (0-3)
== END ==
LOC: M LAB REF 12:07
PROVIDERS: ATTEND Physician Assistant
DX: N39.0 Urinary tract infection, site not specified (principal)

== ENCOUNTER → 2025-08-31 | Outpatient (CLI) | payer BC ==
[2025-08-31 15:05] LABS: CALCIUM LEVEL 9.6 MG/DL (8.3-10.6); CARBON DIOXIDE LEVEL 27.0 MMOL/L (20-31); CHLORIDE LEVEL 105.0 MMOL/L (98-107); CREATININE FOR GFR 1.19 MG/DL (0.55-1.30); GLOMERULAR FILTRATION RATE 50.1 (>45); POTASSIUM SERUM 4.7 MMOL/L (3.5-5.1); SODIUM LEVEL 141.0 MMOL/L (136-145)
[2025-08-31 15:06] LABS: BASO # 0.0 10^3/uL (0.0-0.2); BASO % 0.7 % (0.0-1.0); EOS # 0.2 10^3/uL (0.0-0.5); EOS % 3.8 % (0.0-3.0); LYMPH # 1.4 10^3/uL (1.5-5.0); LYMPH % 24.6 % (24.0-44.0); MONO # 0.6 10^3/uL (0.0-0.8); MONO % 9.4 % (2.0-8.0); NEUTROPHILS # 3.6 10^3/uL (1.5-8.5); NEUTROPHILS % 61.2 % (36.0-66.0); PLATELET COUNT, AUTOMATED 229 10^3/uL (150-450)
[2025-08-31 15:38] LABS: ESTIMATED AVERAGE GLUCOSE 194.0 MG/DL (60-110)
== END ==
LOC: M PLALAB 10:21
PROVIDERS: ATTEND Physician Assistant Medical
DX: Z09 Encounter for follow-up examination after completed treatment for conditions other than malignant neoplasm (principal); J22 Unspecified acute lower respiratory infection; B34.8 Other viral infections of unspecified site; J20.4 Acute bronchitis due to parainfluenza virus; J96.01 Acute respiratory failure with hypoxia; E11.65 Type 2 diabetes mellitus with hyperglycemia; I10 Essential (primary) hypertension

== ENCOUNTER → 2025-11-06 | Outpatient (REF) | payer BC, MEDICARE ==
[2025-11-06 18:27] LABS: APPEARANCE, URINE HAZY (CLEAR); BACTERIA, URINE AUTO NEGATIVE (NEGATIVE); BILIRUBIN, URINE AUTO NEGATIVE (NEGATIVE); BLOOD, URINE BLOOD 3+ (NEGATIVE); GLUCOSE, URINE (UA) AUTO NEGATIVE (NEGATIVE); KETONE, URINE AUTO NEGATIVE (NEGATIVE); LEUKOCYTE ESTERASE, URINE AUTO 2+ (NEGATIVE); MUCUS, URINE SMALL (NEGATIVE); NITRITE, URINE AUTO NEGATIVE (NEGATIVE); PROTEIN, URINE AUTO NEGATIVE (NEGATIVE); RBC, URINE AUTO 181 /HPF (0-3); SPECIFIC GRAVITY URINE AUTO 1.010 (1.002-1.035); SQUAMOUS EPITHELIAL CELL UR AU 3 /HPF (0-6); UROBILINOGEN, URINE AUTO 0.2 mg/dL (0.0-2.0); WBC, URINE AUTO 49 /HPF (0-3)
== END ==
LOC: M LAB REF 12:08
DX: N39.0 Urinary tract infection, site not specified (principal)

== ENCOUNTER 2025-11-25 12:59 | Emergency (ER) | payer BC, MEDICARE ==
[~2025-11-25] VITALS: Ht 172.7 cm; Wt 118.2 kg
[2025-11-25 13:46] LABS: KETONE, URINE AUTO RFX NEGATIVE (NEGATIVE); NITRITE, URINE AUTO RFX NEGATIVE (NEGATIVE); RBC, URINE AUTO RFX 86 /HPF (0-3); SQUAM EPITHELIAL CELL UR AURFX 1 /HPF (0-6)
[2025-11-25 13:50] LABS: LEUKOCYTE ESTERASE UR AUTO RFX TRACE (NEGATIVE); WBC, URINE AUTO RFX 22 /HPF (0-3)
[2025-11-25] MEDS ORDERED: NITR100C3 PO (13:55)
[2025-11-25 14:08] VITALS: BP 125/71; TEMP 97.5; O2SAT 98
[2025-11-25] MEDS: NITROFURANTOIN 100 MG CAP PO ONE ×2 (14:15→14:16)
[2025-11-25] MEDS: FLUCONAZOLE 100 MG TAB PO ONE (14:16)
== END 2025-11-25 14:20 | disposition home or self-care (01) ==
LOC: M ED 13:31
DX: N39.0 Urinary tract infection, site not specified (principal); E11.9 Type 2 diabetes mellitus without complications; I48.91 Unspecified atrial fibrillation; I25.10 Atherosclerotic heart disease of native coronary artery without angina pectoris; I10 Essential (primary) hypertension; J44.9 Chronic obstructive pulmonary disease, unspecified; Z79.4 Long term (current) use of insulin; Z79.82 Long term (current) use of aspirin; Z79.899 Other long term (current) drug therapy